=== PATIENT | male | born 1950 | race African-American/Black ===

== ENCOUNTER 2016-07-19 05:24 | Inpatient (IN) ==
--- NOTE | 2016-07-19 05:34 | Emergency Department Note ---
Arrival <Himanshu Brady - Last Filed: 07/19/16 05:31> - Arrival Limitations: Altered Mental Status Source: EMS - History of Present Illness Severity: severe <AdelaMerlin - Last Filed: 07/19/16 07:48> - Arrival Chief Complaint: GI Bleed/Rectal Stated Complaint: pneumonia Time Seen by Provider: 07/19/16 05:30 - History of Present Illness HPI Narrative: Patient presents via EMS after being evaluated at the retirement this morning. The patient was initially able to sit up and speak and had no real complaints and after having one episode of dark brown coffee-ground type emesis he began to have immediate respiratory distress and fell back into the bed. The patient is DNR by the retirement papers signed by his family member named Anika Bruce. On arrival to the emergency department, the patient's abdomen was very tight and distended. He is currently unresponsive and on a CPAP mask. He is unable to respond or give history at this time. (Himanshu Brady) Allergies/Adverse Reactions: Allergies Allergy/AdvReac Type Severity Reaction Status Date / Time No Known Allergies Allergy Unverified 12/05/15 19:12 Home Medications: Home Medications Medication Instructions Recorded Confirmed Type Atorvastatin [Lipitor] 40 mg PO BEDTIME 10/12/15 04/03/16 History Doxazosin Mesylate [Cardura] 8 mg PO PC SUPPER 10/12/15 04/03/16 History Insulin Detemir [Levemir] 36 unit SUBCUT 1700 10/12/15 04/03/16 History Sitagliptin Phosphate [Januvia] 50 mg PO DAILY 10/12/15 04/03/16 History Ferrous Sulfate Tab [Feosol 325 mg PO TID tablet 10/21/15 04/03/16 Rx Original Tab] Metoprolol Succinate Xl [Toprol Xl] 12.5 mg PO BID tablet 10/21/15 04/03/16 Rx Allopurinol 100 mg PO DAILY 12/01/15 04/03/16 History Benztropine Tab [Cogentin Tab] 1 mg PO BID 12/01/15 04/03/16 History Cholecalciferol (Vitamin D3) 2,000 unit PO DAILY 12/01/15 04/03/16 History [Vitamin D3] Cilostazol 25 mg PO BID 12/01/15 04/03/16 History Gabapentin Cap/Tab [Neurontin 300 mg PO TID 12/01/15 04/03/16 History Cap/Tab] Hydrocodone/Acetaminophen 1 each PO TID 12/01/15 04/03/16 History [Hydrocodon-Acetaminophen 5-325] Multivitamin [Multivitamins] 1 each PO DAILY 12/01/15 04/03/16 History Trazodone HCl 50 mg PO BEDTIME 12/01/15 04/03/16 History clonazePAM [Clonazepam] 0.5 mg PO BEDTIME 12/01/15 04/03/16 History hydroCHLOROthiazide 25 mg PO DAILY 12/01/15 04/03/16 History [Hydrochlorothiazide] Acetaminophen Tab [Tylenol Tab] 650 mg PO Q8H PRN 04/03/16 04/03/16 History Aspirin EC Tab 81 mg PO DAILY 04/03/16 04/03/16 History Polyethylene Glycol 3350 17 gm PO DAILY 04/03/16 04/03/16 History Ziprasidone HCl [Geodon] 80 mg PO BID 04/03/16 04/03/16 History Review of System - Review of System 12 point system: reviewed and no additional remarkable complaints except as stated <Himanshu Brady - Last Filed: 07/19/16 05:31> Medical,Surgical,& Family Hx - Medical History Cardio: History of: Hypertension, Cardiovascular Problems Neurology: History of: Neurological Problems (Schizophrenia) Endocrine: History of: Diabetes Mellitus (IDDM), Diabetes Mellitus (NIDDM), Dyslipidemia Musculoskeletal: History of: Musculoskeletal Problems (Muscle atrophy, Bed ridden) Hematology: History of: Anemia - Family History Family History: Reports;: Family Diabetes - Social History Smoking Status: Unknown if ever smoked <Himanshu Brady - Last Filed: 07/19/16 05:31> Exam <Himanshu Brady - Last Filed: 07/19/16 05:31> <Merlin Chapman - Last Filed: 07/19/16 07:48> Physical Examination: General: Patient is well-developed and well-nourished with moderate respiratory distress noted. Patient is unable to follow any commands and is breathing approximately 25-30 times a minute. HEENT: The extraocular muscles are intact. Oropharynx is moist. There is no erythema or exudate. The tympanic membranes are shiny bilaterally. Neck: There is no adenopathy. Full range of motion is noted without pain. The trachea is midline. No JVD is present. Lungs: There is normal excursion of the chest with the lungs sounding clear bilaterally. No subcostal retractions are present. There is no point tenderness present. Heart: The heart has a regular rate and rhythm with no gallops or murmurs. Abdomen: The abdomen is distended with no real tenderness elicited on exam. Bowel sounds are normal. Back: The back demonstrates a normal appearance with no evidence of trauma. Genitourinary: Not examined. Extremities: The extremities demonstrate no clubbing, cyanosis, or edema. The visualized range of motion is normal. They appear atraumatic. Neuro: Cranial nerves II through XII are checked and intact. There is no focal motor or sensory deficit seen in the extremities. Skin: Skin is warm and dry with no evidence of rash. (Himanshu Brady) Vital Signs: Vital Signs Temperature 99.1 F 07/19/16 05:29 Pulse Rate 107 H 07/19/16 06:22 Respiratory Rate 28 H 07/19/16 06:22 Blood Pressure 115/62 07/19/16 06:22 O2 Sat by Pulse Oximetry 83 L 07/19/16 06:22 Course <Himanshu Brady - Last Filed: 07/19/16 05:31> - Consultations Time: 06:10 <Merlin Chapman - Last Filed: 07/19/16 07:48> Course Narrative: Care assumed from Dr. Brady at 6 AM. Patient is a DNR. He was placed on BiPAP he arrived in the emergency department. O2 sats remained in the lower 80s. At about 8 AM the family change their mind regarding DNR status. They would like everything done. Patient was intubated and placed on mechanical ventilation. Vigorous suctioning was performed. (Merlin Chapman) - Consultations Consultation #1: Discussed with hospitalist. Patient will be admitted to their service. I was unable to get the hospitalist answer me. I wrote orders for this patient. Nursing staff will contact the hospitalist upon patient's arrival to the [facility]. ( Merlin Chapman) Procedures <Himanshu Brady - Last Filed: 07/19/16 05:31> - Intubation Time out performed: Yes sedative: Etomidate Mg Given: 20 paralytic: Vecuronium Mg Given: 10 Laryngoscope: fiber optic video scope ET Tube Size: 8 ET Tube Uncuffed: No Tube Secured Depth (cm): 23 Tube Secured Location: lips Tube Placement Confirmation: visualized tube passing through cords, equal breath sounds bilaterally, no breath sounds over epigastrium, confirmation detector color change Patient Tolerated Procedure: well Intubation Complications: none <Merlin Chapman - Last Filed: 07/19/16 07:48> - Intubation Additional Comments: Coffee-ground emesis was noted in the posterior oropharynx at the time of intubation. (Merlin Chapman) Results <Himanshu Brady - Last Filed: 07/19/16 05:31> - Labs CBC & BMP: 07/19/16 05:38 07/19/16 05:38 Lab Results: I have reviewed the patients labs - EKG EKG results: interpreted by ERMD - Diagnostic Findings Procedure: Chest x-ray: image reviewed by me (Increased pulmonary markings on the right greater than left. Old median sternotomy. Chest x-ray #2: Endotracheal tube in position above the jasmina. NG tube in position the stomach.) <Merlin Chapman - Last Filed: 07/19/16 07:48> - Impressions EKG: Normal sinus rhythm with ectopic premature complexes. Early repolarization , possible lateral ischemia. (Merlin Chapman) Critical Care Time <Himanshu Brady Last Filed: 07/19/16 05:31> Critical Care Time: Yes Total Critical Care Time: 60 <Merlin Chapman - Last Filed: 07/19/16 07:48> Attestation: Intubation, IV fluids, IV antibiotics, Protonix were all given to the patient in the emergency department. (Merlin Chapman) Disposition <Himanshu Brady - Last Filed: 07/19/16 05:31> Case discussed with: patient's family Time of Disposition: 06:09 <Merlin Chapman - Last Filed: 07/19/16 07:48> Clinical Impression: Upper GI bleed, Aspiration into airway, Acute respiratory failure, Coronary artery disease, Diabetes mellitus, Metabolic encephalopathy, Anemia Disposition: Still a Patient Condition: Critical
[2016-07-19] MEDS ORDERED: SODIUM CHLORIDE 0.9% 1,000 ML IV STA (05:35)
[2016-07-19] MEDS ORDERED: PANTOPRAZOLE 40 MG VIAL IV STA (05:35)
--- NOTE | 2016-07-19 05:39 | EKG Report ---
Stationary ECG Study [facility] Test Date: 07/19/2016 5:35:09 AM Pat Name: HIMANSHU BURGESS Department: Room: Gender: M [employer]: IJ : 1950 Requested by: Himanshu Brady Order Number: [id number] Ilana MD: MELBA WINTER Intervals [place] Rate: 112 P: -78 MS: 93 QRS: 51 QRSD: 81 T: 108 QT: 329 QTc: 395 Interpretive Statements SINUS TACHYCARDIA POOR QUALITY BASELINE Electronically Signed On 07-20-16 17:59:11 CDT by MELBA WINTER [email or web address]
[2016-07-19 06:01] LABS: Basophils % 0.1 % (0.0-0.8); Eosinophils % 0.3 % (0.00-10.9); Hemoglobin 9.6 GM/DL (14.0-18.0); Immature Granulocytes % 0.2 %; Immature Granulocytes Absolute 0.02 #; Lymphocytes # 1.6 10*3/uL (1.4-4.0); Lymphocytes % 15.8 % (21.2-54.2); Mean Corpuscular Hemoglobin 24 PG (27-34); Mean Corpuscular Volume 81.2 FL (87-102); Mean Platelet Volume 11.3 FL (9.6-12.0); Monocytes # 0.1 10*3/uL (0.11-0.8); Monocytes % 1.4 % (1.7-12.7); Neutrophils # 8.1 10*3/uL (1.4-7.4); Neutrophils % 82.2 % (38.7-73.9); Platelet Count 261 T/CUMM (130-400); Red Blood Count 3.94 MC/CUMM (3.8-5.5); Red Cell Distribution Width 16.4 % (9.3-17.3); White Blood Count 9.9 T/CUMM (4-12)
[2016-07-19] MEDS ORDERED: PANTOPRAZOLE 40 MG VIAL IV ONE (06:03)
[2016-07-19] MEDS ORDERED: PIPERACILLIN/TAZOBACTAM 3,375 MG in SODIUM CHLORIDE 0.9% 100 ML IV STA (06:11)
[2016-07-19] MEDS ORDERED: PIPERACILLIN/TAZOBACTAM 3,375 MG VIAL IV ONE (06:12)
[2016-07-19] MEDS ORDERED: LORazepam 2 MG/1 ML VIAL IV STA (06:25)
[2016-07-19] MEDS ORDERED: LORazepam 2 MG/1 ML VIAL ONE (06:26)
[2016-07-19 06:28] LABS: Ammonia 109 UMOL/L (11-32)
[2016-07-19 06:30] LABS: Acanthocytes Few; Band Neutrophils 10 % (0-10); Hypochromasia 1+; Lymphocytes 20 % (20-55); Metamyelocytes 1 %; Microcytosis 1+; Ovalocytes Slight; Segmented Neutrophils 67 % (50-85); Total Cells Counted 100
[2016-07-19 06:31] LABS: Platelet Estimate Normal
[2016-07-19 06:40] LABS: Alanine Aminotransferase 24 U/L (16-61); Albumin 3.5 G/DL (3.4-5.0); Alkaline Phosphatase 72 U/L (45-117); Aspartate Amino Transferase 19 U/L (0-37); Bilirubin,Total < 0.39 MG/DL (0.2-1.0); Blood Urea Nitrogen 34 MG/DL (7-18); Glucose 280 MG/DL (74-106); Sodium 136 MMOL/L (136-145); Total Protein 6.9 G/DL (6.4-8.3); Troponin I Only < 0.015 NG/ML (0.00-0.045)
--- NOTE | 2016-07-19 06:52 | Hospitalist History & Physical ---
Assessment and Plan - Time spent with patient Time spent with patient: Greater than 30 minutes (1) Acute respiratory failure Status: Acute Assessment and plan: Most likely instigated by aspiration into the airway. This was acutely onset at the care home. Patient does have a chest x-ray showing right middle lobe infiltrates most likely secondary to aspiration of gastric contents. Will be treated with antibiotics including Zosyn 4.5 g q. 8; add vancomycin 1 g now and 750 every 12 hours consult pharmacy for vancomycin pharmacokinetics and dosing. I am informed the patient is DNR and is going to be admitted to the medical floor. Discussed the case with the emergency room physician home advised to go and talk to the family because they had to evaluate the patient in the emergency room and the family had not been talked to yet. Current Visit: Yes (2) Aspiration into airway Status: Acute Assessment and plan: Treated with antibiotics and mentioned above. Pulmonary titer may be necessary. Current Visit: Yes (3) Metabolic encephalopathy Status: Acute Assessment and plan: Provide lactulose 20 g p.o. every 8 hours. Repeat ammonia in the morning. Current Visit: Yes (4) Upper GI bleed Status: Acute Current Visit: Yes (5) Anemia Status: Acute Assessment and plan: Repeat H&H every 12 hours. Type and hold 2 units of packed red cells. Current Visit: No Qualifiers: Anemia type: other cause (6) Upper GI bleed Status: Acute Assessment and plan: Most likely this could be associated with portosystemic hypertension patient has an ammonia 102. Variceal bleed is likely will consult gastroenterology for further evaluation and management. Avoid putting an NG tube in this gentleman. Current Visit: Yes History of Present Illness Chief complaint: GI bleed altered mental status History of present illness: Mr. Marques is a 66 year old male was brought from the care home where he resides following coffee-ground emesis and subsequent acute respiratory distress. The thought that the patient may have aspirated at the time. Reportedly this gentleman is DNR. In the emergency room he is on CPAP. Shunt was evaluated in the emergency room by Dr. Chapman and slated for admission upstairs. Was called to see this patient at 0629 morning for this admission. There is a family member in the emergency room who states that has been taking care of of her brother but she just recently came from [place]; did not know much about past medical history of the patient. On arrival to the emergency department, the patient's abdomen was very tight and distended. He is currently unresponsive and on a CPAP mask. He is unable to respond or give history at this time Home Medications Medication Instructions Recorded Confirmed Type Atorvastatin [Lipitor] 40 mg PO BEDTIME 10/12/15 04/03/16 History Doxazosin Mesylate [Cardura] 8 mg PO PC SUPPER 10/12/15 04/03/16 History Insulin Detemir [Levemir] 36 unit SUBCUT 1700 10/12/15 04/03/16 History Sitagliptin Phosphate [Januvia] 50 mg PO DAILY 10/12/15 04/03/16 History Ferrous Sulfate Tab [Feosol 325 mg PO TID tablet 10/21/15 04/03/16 Rx Original Tab] Metoprolol Succinate Xl [Toprol Xl] 12.5 mg PO BID tablet 10/21/15 04/03/16 Rx Allopurinol 100 mg PO DAILY 12/01/15 04/03/16 History Benztropine Tab [Cogentin Tab] 1 mg PO BID 12/01/15 04/03/16 History Cholecalciferol (Vitamin D3) 2,000 unit PO DAILY 12/01/15 04/03/16 History [Vitamin D3] Cilostazol 25 mg PO BID 12/01/15 04/03/16 History Gabapentin Cap/Tab [Neurontin 300 mg PO TID 12/01/15 04/03/16 History Cap/Tab] Hydrocodone/Acetaminophen 1 each PO TID 12/01/15 04/03/16 History [Hydrocodon-Acetaminophen 5-325] Multivitamin [Multivitamins] 1 each PO DAILY 12/01/15 04/03/16 History Trazodone HCl 50 mg PO BEDTIME 12/01/15 04/03/16 History clonazePAM [Clonazepam] 0.5 mg PO BEDTIME 12/01/15 04/03/16 History hydroCHLOROthiazide 25 mg PO DAILY 12/01/15 04/03/16 History [Hydrochlorothiazide] Acetaminophen Tab [Tylenol Tab] 650 mg PO Q8H PRN 04/03/16 04/03/16 History Aspirin EC Tab 81 mg PO DAILY 04/03/16 04/03/16 History Polyethylene Glycol 3350 17 gm PO DAILY 04/03/16 04/03/16 History Ziprasidone HCl [Geodon] 80 mg PO BID 04/03/16 04/03/16 History Allergies Allergy/AdvReac Type Severity Reaction Status Date / Time No Known Allergies Allergy Unverified 12/05/15 19:12 Medical,Surgical,& Family Hx - Medical History Cardio: History of: Hypertension, Cardiovascular Problems Neurology: History of: Neurological Problems (Schizophrenia) Endocrine: History of: Diabetes Mellitus (IDDM), Diabetes Mellitus (NIDDM), Dyslipidemia Musculoskeletal: History of: Musculoskeletal Problems (Muscle atrophy, Bed ridden) Hematology: History of: Anemia - Family History Family History: Reports;: Family Diabetes - Social History Smoking Status: Unknown if ever smoked Frequency of Alcohol Use: None Type of Drug Use: None ROS unobtainable: due to endotracheal tube Review of systems: Chief complaint and past medical history and history of presenting illness. Exam - Constitutional Vitals: Period Temp Pulse Resp BP Sys/Loo Pulse Ox Last 24 Hr 99.1 F 107-114 28-32 113-115/62-79 81-83 General appearance: other (Patient is incommunicado with his CPAP on) - Head Head exam: Present: normocephalic, atraumatic - Eye Eye exam: Present: other (Unable to assess) - ENT ENT exam: Present: other (Unable to assess) - Neck Neck exam: Present: other (Supple neck) - Respiratory Respiratory exam: Present: other (Bilateral crackles more so on the right side moderate tachypnea) - Cardiovascular Cardiovascular exam: Present: tachycardia, other (With ectopic beats) - GI/Abdominal GI/Abdominal exam: Present: other (Bowel sounds present but very infrequent count abdomen) - Extremities Exam Extremities exam: Present: other (Unable to move extremities but could be generalized weakness) - Psychiatric Psychiatric exam: Present: other (Unable to assess) - Skin Skin exam: Present: normal color, warm, dry Results - Labs CBC & BMP: 07/19/16 05:38 07/19/16 05:38 Lab Results: I have reviewed the past 24 hour labs (Noted creatinine 1.6 white count of 9.9 hemoglobin 9.6 normal platelet AST 19 ALT 24 alk phos 72 ammonia 109 anion gap of 15)
[2016-07-19] MEDS ORDERED: VANCOMYCIN INJ 1,000 MG in SODIUM CHLORIDE 0.9% 250 ML IV STA (07:05)
[2016-07-19 07:23] LABS: PT Patient Result 10.6 SECS; Partial Thromboplastin Time 27.4 SECS (0-40)
--- NOTE | 2016-07-19 07:36 | Event Note ---
Patient seen and examined. Respiratory status less than favorable. SPO2 83%. Family at beside; discussed in great detail patient current status. [employer] spoke with sister regarding the need to possibly intubate if patient status continues to decline. Code status discussed; family states" We want every thing done". DNR revoked at bedside; code status is now FULL CODE.
[2016-07-19] MEDS ORDERED: ETOMIDATE 20 MG/10 ML VIAL IV ONE ×2 (07:37→07:56)
[2016-07-19] MEDS ORDERED: MIDAZOLAM 2 MG/2 ML VIAL IV STA (07:37)
[2016-07-19] MEDS ORDERED: ALBUTEROL 2.5 MG/3 ML NEB RESP TX STA (07:49)
--- NOTE | 2016-07-19 07:49 | XRay Report ---
Portable chest. Indication: Shortness of breath. Comparison: December 01, 2015. The heart is normal in size. There is left ventricular hypertrophy. There is uncoiling of the thoracic aorta which often indicates chronic hypertension. Post median sternotomy. The pulmonary vasculature is normal. There are rather extensive bilateral alveolar infiltrates, involving most of the mid and central aspects of the right lung, and the right infrahilar lung. No pneumothorax. No pleural effusion. Impression: Bilateral infiltrates. Without cardiomegaly and venous congestion, this most likely represents pneumonia. Noncardiogenic pulmonary edema is also a consideration. PROCEDURE INTERPRETED AT [facility] DEPARTMENT OF RADIOLOGY Final Report Signed by: Dr. Bruna Qureshi
[2016-07-19] MEDS ORDERED: VECURONIUM 10 MG VIAL IV ONE (07:56)
--- NOTE | 2016-07-19 07:56 | XRay Report ---
Portable chest. Indication: Endotracheal tube placement. Comparison: Previous study from 5:30 this morning. The heart is is normal in size. Post median sternotomy. Since the previous study, there has been placement of an endotracheal tube, its distal tip is 18 mm above the jasmina. The distal tip of the nasogastric tube projects over the area of the antrum of the stomach. Extensive bilateral infiltrates are again demonstrated, similar in distribution to the previous exam, involving most of the central and mid portions of the right lung and the left infrahilar region. No pneumothorax or pleural effusion. Gaseous distention of bowel. Impression: Status post intubation. The distal tip of the endotracheal tube is 17 mm above the jasmina. Extensive infiltrates bilaterally remain stable. PROCEDURE INTERPRETED AT [facility] DEPARTMENT OF RADIOLOGY Final Report Signed by: Dr. Bruna Qureshi
[2016-07-19] MEDS ORDERED: MIDAZOLAM 2 MG/2 ML VIAL ONE (08:00)
[2016-07-19] MEDS ORDERED: VECURONIUM 10 MG VIAL IV STA (08:05)
[2016-07-19] MEDS ORDERED: DEXTROSE 50% 25 GM/50 ML VIAL IV PRN (08:48)
[2016-07-19] MEDS ORDERED: GLUCAGON 1 MG VIAL IM PRN (08:48)
[2016-07-19] MEDS: SODIUM CHLORIDE 0.9% 1,000 ML IV SCH ×2 (08:56→16:19)
[2016-07-19] MEDS ORDERED: SODIUM CHLORIDE 0.9% 1,000 ML IV ONE ×2 (09:32→12:42)
[2016-07-19] MEDS: ALBUTEROL/IPRATROPIUM 3 ML NEB RESP TX SCH ×4 (10:57→23:46)
--- NOTE | 2016-07-19 11:24 | Pulmonology Consult Note ---
Addendum entered and electronically signed by Naun Gil CFNP 07/19/16 11: 55: Family history (update): Positive also for sarcoidosis Original Note: <Naun Gil - Last Filed: 07/19/16 11:10> History of Present Illness Chief complaint: Vent management. Pneumonia. History of present illness: Naun Gil, ANP-BC, GNP-BC, acting as scribe for Dr. Roman Francis Mr. Marques is a 66-year-old -[place] male who we have been asked to see in pulmonary consultation for evaluation and treatment. The request for consultation was made by Dr. Stewart. This is a residential patient. He was brought to the emergency room early this morning by EMS. Apparently, while at the residential the patient had one episode of dark brown coffee-ground type emesis and began to have respiratory distress. It suspected that the patient aspirated. It was reported and the patient was initially able to sit up and speak with no real complaints prior to this. Previously the patient had been DNR, however but this was revoked at bedside in the emergency room. He was subsequently intubated. Chest x-ray shows bilateral infiltrates compatible with probable pneumonia. We have been asked to see the patient for ventilator management and treatment of his pulmonary issues. No family is present at the time of this evaluation. Therefore, his review of systems and history is taken from his EMR and nursing staff. Prior to the above-noted episode, there was no reported increased shortness of breath. No reports of cardiac angina or palpitations. No reported reflux or solid dysphagia. No bleeding from any site. No change in bowel or bladder habits. All other systems were reviewed and were negative. Allergies: None known Home medications: See list Past medical history: Sterling's hospitalization 10/13/2015 through 10/21/2015 under the care of the hospitalist. He was seen in pulmonary consultation with Dr. Quintero during that admission. He was treated for suspected right lower lobe infiltrate, probable iron deficiency anemia, chronic renal failure, diabetes mellitus, and schizophrenia. Patient also has hypertension. Social history: The patient resides in a residential. It is unknown if the patient was ever a smoker. Family history: Positive for diabetes. Chest x-ray. Done 07/19/2016. My interpretation. Bilateral infiltrates compatible with probable pneumonia. Most likely secondary to aspiration, but consider bacterial superinfection. Laboratory: White count is 9900 with 82.2% segs, 15.8% lymphs, 1.4% monos; H&H 9.6/32.0 with decreased indices and top normal red blood cell distribution with ; platelet count 261,000; INR 1.0; creatinine 1.60, BUN 34, sodium 136, potassium 4.0, magnesium 2.0; liver function tests within normal limits; ammonia is markedly elevated at 109; troponin is negative; calcium 9.0, albumin 3.5, total protein 6.9 Home Medications Medication Instructions Recorded Confirmed Type Atorvastatin [Lipitor] 40 mg PO BEDTIME 10/12/15 07/19/16 History Doxazosin Mesylate [Cardura] 8 mg PO PC SUPPER 10/12/15 07/19/16 History Insulin Detemir [Levemir] 36 unit SUBCUT 1700 10/12/15 07/19/16 History Sitagliptin Phosphate [Januvia] 100 mg PO DAILY 10/12/15 07/19/16 History Ferrous Sulfate Tab [Feosol 325 mg PO TID tablet 10/21/15 07/19/16 Rx Original Tab] Metoprolol Succinate Xl [Toprol Xl] 12.5 mg PO BID tablet 10/21/15 07/19/16 Rx Allopurinol 100 mg PO DAILY 12/01/15 07/19/16 History Benztropine Tab [Cogentin Tab] 1 mg PO BID 12/01/15 07/19/16 History Cholecalciferol (Vitamin D3) 2,000 unit PO DAILY 12/01/15 07/19/16 History [Vitamin D3] Cilostazol 25 mg PO BID 12/01/15 07/19/16 History Gabapentin Cap/Tab [Neurontin 300 mg PO TID 12/01/15 07/19/16 History Cap/Tab] Hydrocodone/Acetaminophen 1 each PO BID 12/01/15 07/19/16 History [Hydrocodon-Acetaminophen 5-325] Multivitamin [Multivitamins] 1 each PO DAILY 12/01/15 07/19/16 History Trazodone HCl 50 mg PO BEDTIME 12/01/15 07/19/16 History clonazePAM [Clonazepam] 0.5 mg PO BEDTIME 12/01/15 07/19/16 History hydroCHLOROthiazide 25 mg PO DAILY 12/01/15 07/19/16 History [Hydrochlorothiazide] Acetaminophen Tab [Tylenol Tab] 650 mg PO Q8H PRN 04/03/16 07/19/16 History Aspirin EC Tab 81 mg PO DAILY 04/03/16 07/19/16 History Polyethylene Glycol 3350 17 gm PO DAILY 04/03/16 07/19/16 History Ziprasidone HCl [Geodon] 80 mg PO BID 04/03/16 07/19/16 History Docusate Sodium [Colace] 100 mg PO BID 07/19/16 07/19/16 History Glimepiride [Amaryl] 1 mg PO DAILY 07/19/16 07/19/16 History Lactulose 10 gm PO DAILY 07/19/16 07/19/16 History Megestrol Acetate [Megace] 400 mg PO DAILY 07/19/16 07/19/16 History Allergies Allergy/AdvReac Type Severity Reaction Status Date / Time No Known Allergies Allergy Verified 07/19/16 13:56 Exam (Pulmonay) H&P - Constitutional Vitals: Period Temp Pulse Resp BP Sys/Loo Pulse Ox Last 24 Hr 97.2 F 74-107 12-28 63-115/47-86 83-100 Exam: Psych: Unable to be obtained. The patient is sedated and on the ventilator. HEENT: [Pupils, irises, sclera, conjunctiva, and eyelids appear normal. The face is symmetrical without rash or masses. Lips and tongue are WNL; ETT in place Neck: [Symmetrical. Thyroid was not palpated.] Lymphatics: [No submandibular, cervical, or supraclavicular adenopathy] Chest: Symmetrical with significant coarseness and large airway congestion, expiratory wheeze CV: Lateral PMI; no gallop Arterial: Carotids are decreased. Upper extremity pulses are palpable. Lower extremity pulses are nonpalpable, but I see no evidence of ischemia Venous: [Exam of the neck, upper, and lower extremities is normal] Abd: [No appreciable organomegaly, masses, tenderness, or bruit; Bowel sounds are minimally hypoactive 4; The aorta was not palpated] /Rectal: [Deferred] Extremities: [No clubbing, cyanosis, or obvious DVT; mild pedal and pretibial edema bilaterally; ALYSSIA hose are in use] Skin: [No cancerous or infectious lesions of the exposed, examined skin; the perineal area was not examined] M/S: [Age appropriate loss of the normal curvature of the cervical, thoracic, and lumbar spine] Neurological: Presently the patient does not wake up. It is noted, that he was given a good bit of sedatives in the emergency room prior to intubation. The remainder of the exam was noncontributory. Impression: #1: Acute bilateral infiltrates most likely compatible with aspiration pneumonia but consider a bacterial superinfection #2: Hematemesis #3: Chronic renal failure #4: Diabetes mellitus #5: Schizophrenia #6: Anemia; probably secondary to iron deficiency #7: Hyperammonemia #8: Acute respiratory distress secondary to #1 and/or #2 requiring intubation mechanical ventilation #9: See past history Plan: #1: Agree with present antibiotics. We will start the physical therapy protocol and ventilator management weaning protocol. #2: Check Doppler venograms to rule out deep venous thrombophlebitis. Note, the patient has been on Megace while at the residential. #3: Will schedule fiberoptic bronchoscopy for later on today #4: Check sputum for Gram stain, culture and sensitivity #5: Check cold agglutinins and Legionella #6: Check BNP, TSH, and free T4 #7: See orders We appreciate this consult and will follow along with you. Medical,Surgical,& Family Hx - Medical History Cardio: History of: Hypertension, Cardiovascular Problems Psychological: History of: Schizophrenia Neurology: History of: Neurological Problems (Schizophrenia) HEENT: History of: Glaucoma Endocrine: History of: Diabetes Mellitus (IDDM), Diabetes Mellitus (NIDDM), Dyslipidemia Rheumatology: History of;: Gout, Rheumatoid Arthritis Respiratory: History of: Pneumonia (x 2 last time was in 2016) Genitourinary: History of: Prostate Problems, Problems (elevated kidney levels seeing a renal md per family, dr. jackson.) Gastrointestinal: History of: Gastrointestinal Bleed, Hemorrhoids Musculoskeletal: History of: Musculoskeletal Problems (Muscle atrophy, Bed ridden) Hematology: History of: Anemia - Surgical History Cardiac Surgeries: Sugical HX of: Cardiac Catheterization, Cardiac Surgery (CABG ) HEENT Surgeries: Surgical HX of: Eye Surgery (cataracts) - Family History Family History: Reports;: Family Diabetes - Social History Smoking Status: Unknown if ever smoked Frequency of Alcohol Use: None Type of Drug Use: None Results - Labs CBC & BMP: 07/19/16 05:38 07/19/16 05:38 <Roman Francis - Last Filed: 07/19/16 18:02> History of Present Illness History of present illness: Mr. Marques is a 66 year old male Exam (Pulmonay) H&P - Constitutional Vitals: Period Temp Pulse Resp BP Sys/Loo Pulse Ox Last 24 Hr 96 F-98 F 66-107 12-28 63-145/47-97 83-100 Exam: The patient's Doppler venograms were negative. Abdominal ultrasound was essentially negative. CT of the head showed no acute changes. Historically and by chest x-ray evidence this patient has aspirated. I have considered fiberoptic bronchoscopy but I am going to put this off until tomorrow since the patient is not stable. He is on pressor agents. He has acute liver failure among his many other problems. He has lactic acidosis. I have added Solu- Medrol 40 mg IV push every 8 hours to cover for adult respiratory distress syndrome. PO2 is only 99.8 on 100% oxygen. Patient is covered with antibiotics. The available laboratory test and x-ray tests to been reviewed. Ventilator changes have been made. He is scheduled for fiberoptic bronchoscopy 8 AM on 07/20/2006 Results - Labs CBC & BMP: 07/19/16 11:35 07/19/16 05:38
[2016-07-19] MEDS: INSULIN LISPRO 100 UNIT/ML SUBCUT SCH ×3 (11:27→23:59)
[2016-07-19] MEDS: VANCOMYCIN INJ 1,250 MG in SODIUM CHLORIDE 0.9% 250 ML IV SCH ×2 (11:51→23:08)
[2016-07-19 11:53] LABS: ABG Base Excess -6.3 MMOL/L (-2.5-2.5); ABG HCO3 19.2 MMOL/L (20-26); ABG PH 7.253 (7.35-7.45); ABG PO2 99.8 MM HG (80-95); ABG TCO2 19.6 MMOL/L (23-27); Allen Test Positive; Pt O2 Delivery Device Ventilator
[2016-07-19 11:55] LABS: Hematocrit 29.4 VOL% (42.0-52.0); Hemoglobin 8.5 GM/DL (14.0-18.0)
[2016-07-19 12:37] LABS: Free T4 (Free Thyroxine) 1.36 NG/DL (0.76-1.46); Thyroid Stimulating Hormone 2.68 uIU/ml (0.358-3.74)
[2016-07-19] MEDS ORDERED: SODIUM CHLORIDE 0.9% 250 ML IV PRN (12:40)
[2016-07-19] MEDS ORDERED: NOREPINEPHRINE 4 MG/4 ML VIAL IV ONE (12:46)
[2016-07-19] MEDS ORDERED: NOREPINEPHRINE 8 MG in SODIUM CHLORIDE 0.9% 242 ML IV SCH (13:00)
--- NOTE | 2016-07-19 13:03 | Gastrointestinal Consult Note ---
Assessment and Plan (1) Coffee ground emesis Status: Acute Assessment and plan: If the family agrees we can certainly proceed with upper endoscopy tomorrow in order to find a source for the patient's bleeding. The patient had been made a DNR previously and the family may wish not to be this aggressive. Complications include but are not limited to: Bleeding, infection, perforation, cardiac and pulmonary compromise. We can perform this procedure at the bedside tomorrow morning. In the meantime we will will certainly cover him with Protonix 40 mg IV twice daily and observe his hematocrit exchange underwriting consultant time. Upper GI bleeding may be feeding into his current iron deficiency anemia picture. His only anti-inflammatory agent is aspirin as an outpatient. Current Visit: Yes (2) Guaiac positive stools Status: Acute Assessment and plan: As noted above. I suspect this patient has erosive gastritis or duodenitis or esophagitis. AVMs and/or gastric cancer esophageal cancer not completely ruled out. Upper endoscopy is advised if the family is willing to proceed. Current Visit: Yes (3) Constipation Status: Acute Assessment and plan: Patient manually disimpacted during physical examination today. He may require some laxatives down the road if we begin to feed again. Current Visit: Yes (4) Iron deficiency anemia Status: Acute Assessment and plan: Potential lower GI sources may also be feeding into an iron deficiency anemia. Because of the vomiting of coffee grounds we are not going to pursue colonoscopy during this admission. Currently the patient appears to have had a stroke. Will order ammonia level to see if this is simply a metabolic encephalopathy. Current Visit: Yes History of Present Illness Chief complaint: Coffee-ground emesis and TONYA 29%, guaiac positive History of present illness: Mr. Marques is a 66 year old male who developed an episode of coffee-ground emesis with associated localized distress this morning. The patient is a schizophrenic who is currently residing in a residential where he was made a DNR and was able to talk up until his most recent admission this morning in the emergency room. The patient went into respiratory distress and has been subsequently intubated he is having difficulty maintaining his pressures. His hematocrit has dropped over the last 4 hours from 32.0 to 29.4%. He is basically obtunded with his eyes in the midpoint position and fixed, he answers no questions. On physical examination he is intubated, has no teeth but had brown discoloration to his tongue likely related to the recent coffee-ground emesis abdomen is soft and distended without a fluid wave his rectal exam shows copious amounts of brown/green guaiac positive stools. If the patient remains stable I plan to scope the patient tomorrow, if his family is in agreement. He does have a history of iron deficiency anemia. Home Medications Medication Instructions Recorded Confirmed Type Atorvastatin [Lipitor] 40 mg PO BEDTIME 10/12/15 04/03/16 History Doxazosin Mesylate [Cardura] 8 mg PO PC SUPPER 10/12/15 04/03/16 History Insulin Detemir [Levemir] 36 unit SUBCUT 1700 10/12/15 04/03/16 History Sitagliptin Phosphate [Januvia] 50 mg PO DAILY 10/12/15 04/03/16 History Ferrous Sulfate Tab [Feosol 325 mg PO TID tablet 10/21/15 04/03/16 Rx Original Tab] Metoprolol Succinate Xl [Toprol Xl] 12.5 mg PO BID tablet 10/21/15 04/03/16 Rx Allopurinol 100 mg PO DAILY 12/01/15 04/03/16 History Benztropine Tab [Cogentin Tab] 1 mg PO BID 12/01/15 04/03/16 History Cholecalciferol (Vitamin D3) 2,000 unit PO DAILY 12/01/15 04/03/16 History [Vitamin D3] Cilostazol 25 mg PO BID 12/01/15 04/03/16 History Gabapentin Cap/Tab [Neurontin 300 mg PO TID 12/01/15 04/03/16 History Cap/Tab] Hydrocodone/Acetaminophen 1 each PO TID 12/01/15 04/03/16 History [Hydrocodon-Acetaminophen 5-325] Multivitamin [Multivitamins] 1 each PO DAILY 12/01/15 04/03/16 History Trazodone HCl 50 mg PO BEDTIME 12/01/15 04/03/16 History clonazePAM [Clonazepam] 0.5 mg PO BEDTIME 12/01/15 04/03/16 History hydroCHLOROthiazide 25 mg PO DAILY 12/01/15 04/03/16 History [Hydrochlorothiazide] Acetaminophen Tab [Tylenol Tab] 650 mg PO Q8H PRN 04/03/16 04/03/16 History Aspirin EC Tab 81 mg PO DAILY 04/03/16 04/03/16 History Polyethylene Glycol 3350 17 gm PO DAILY 04/03/16 04/03/16 History Ziprasidone HCl [Geodon] 80 mg PO BID 04/03/16 04/03/16 History Allergies Allergy/AdvReac Type Severity Reaction Status Date / Time No Known Allergies Allergy Unverified 12/05/15 19:12 Medical,Surgical,& Family Hx - Medical History Cardio: History of: Hypertension, Cardiovascular Problems Psychological: History of: Schizophrenia Neurology: History of: Neurological Problems (Schizophrenia) HEENT: History of: Glaucoma Endocrine: History of: Diabetes Mellitus (IDDM), Diabetes Mellitus (NIDDM), Dyslipidemia Rheumatology: History of;: Gout, Rheumatoid Arthritis Respiratory: History of: Pneumonia (x 2 last time was in 2016) Genitourinary: History of: Prostate Problems, Problems (elevated kidney levels seeing a renal md per family, dr. jackson.) Gastrointestinal: History of: Gastrointestinal Bleed, Hemorrhoids Musculoskeletal: History of: Musculoskeletal Problems (Muscle atrophy, Bed ridden) Hematology: History of: Anemia - Surgical History Cardiac Surgeries: Sugical HX of: Cardiac Catheterization, Cardiac Surgery (CABG ) HEENT Surgeries: Surgical HX of: Eye Surgery (cataracts) - Family History Family History: Reports;: Family Diabetes - Social History Smoking Status: Unknown if ever smoked Frequency of Alcohol Use: None Type of Drug Use: None ROS unobtainable: due to endotracheal tube Exam - Constitutional Vitals: Period Temp Pulse Resp BP Sys/Loo Pulse Ox Last 24 Hr 97.2 F-98 F 74-107 12-28 63-115/47-86 83-100 General appearance: no acute distress Exam: Constitutional: Well-developed, well-nourished, obese black male obtunded, and in no acute distress Head and face: Head: Normocephalic atraumatic Eyes: Conjunctiva without injection, no gross scleral icterus, fixed and midline, bilateral cataracts noted Ears: Unable to assess Nose: External appearance is normal, nares patent Mouth: Oral mucous membranes moist without erythema the patient appears to be edentulous Neck: Normal appearance, no masses or tenderness, trachea midline Thyroid: Gland midline and appropriate size for age Respiratory: Intubated, however lungs clear to auscultation without wheezes, rhonchi or rales Cardiovascular: Regular rate and rhythm, normal S1, S2, the exam is without rubs, murmurs or gallops. Gastrointestinal: Nontender to palpation, normal active bowel sounds, tone normal without rigidity or guarding, no masses present, no hepatomegaly, no spleen tip felt. Rectal examination revealed copious amounts of cloudy consistency stool that was brown green but grossly guaiac positive. Moderate size hemorrhoids encountered. Lymphatic: Neck without adenopathy, axilla without lymphadenopathy present Musculoskeletal: Right and left lower extremities with trace evidence of edema Skin and subcutaneous tissue: No rashes or ulcerations noted, normal skin turgor, digits and nails without clubbing/cyanosis/deformities. Neurologic: Patient is having no movement of his extremities, he withdraws to extremely deep sternal rub but otherwise is nonresponsive. He is intubated. Pupils are midline and fixed Psychiatric: Unable to assess, the patient said to be schizophrenic Results - Labs CBC & BMP: 07/19/16 11:35 07/19/16 05:38
--- NOTE | 2016-07-19 13:18 | Ultrasound Report ---
Abdomen ultrasound complete. Indication: Hematemesis. The liver is normal in size. There is fatty infiltration of the liver. No focal liver lesions are seen. There is no intrahepatic biliary ductal dilatation. The common duct measures 5 mm. No gallstones are seen. There is no gallbladder wall thickening or fluid around the gallbladder. The pancreas is completely obscured by bowel gas. No ascites is seen. The abdominal aorta is obscured by bowel gas. Only a small portion of the IVC is visible. It is patent. There is a small cyst at the superior pole of the right kidney, measuring under a centimeter. No hydronephrosis. No solid masses. The spleen is not enlarged. Impression: Limited study. Small right renal cyst. Fatty infiltration of the liver. The Ultrasound images were captured and stored. PROCEDURE INTERPRETED AT [facility] DEPARTMENT OF RADIOLOGY Final Report Signed by: Dr. Bruna Qureshi
[2016-07-19 14:24] LABS: Apearance,Urine CLOUDY (Clear); Bacteria,Urine Many /HPF (Few); Bilirubin,Urine Negative (Negative); Blood, Urine Small mg/dL (Negative); Glucose,Urine (UA) Negative (Negative); Ketones,Urine 5 mg/dL (Negative); Mucus,Urine Few /LPF (Occasional); Nitrite,Urine Negative (Negative); Protein,Urine 100 MG/DL; RBC,Urine 14 /HPF (0-4); Squamous Epithelial Cell,Urine Occasional /HPF (0-10); Urine Color Amber (Yellow); Urine Specific Gravity 1.023 (1.001-1.035); Urine Urobilinogen < 2.0 EU/DL (0.2-1.0); WBC,Urine 28 /HPF (0-6)
--- NOTE | 2016-07-19 14:50 | CT Report ---
CT of the head without contrast. Indication: Unresponsive patient. Comparison: December 01, 2015. There is calcific plaque present within the intracranial internal carotid arteries. There is bilateral basal ganglial calcification. The ventricles and sulci are normally prominent for the patient's age. There is no mass effect, midline shift, or area of hemorrhage. There is a partial empty sella. No cortical infarcts are visible at this time. The calvarium is intact. The mastoid air cells are clear. The patient is intubated. Impression: No acute intracranial process or interval change is seen. The CT exam was performed using one or more of the following dose reduction techniques: Automated exposure control, adjustment of the mA and/or kV according to patient size, or use of iterative reconstruction technique. PROCEDURE INTERPRETED AT [facility] DEPARTMENT OF RADIOLOGY Final Report Signed by: Dr. Bruna Qureshi
--- NOTE | 2016-07-19 14:52 | Ultrasound Report ---
Bilateral lower extremity venous Doppler with landrum scale, Spectral Doppler and color-flow analysis performed and interpreted. Indication: Leg swelling Scanning over both common femoral veins, superficial femoral veins, greater saphenous veins and popliteal veins demonstrates normal compressibility, color flow, and augmentation. Impression: No evidence of DVT seen in either lower extremity. PROCEDURE INTERPRETED AT [facility] DEPARTMENT OF RADIOLOGY Final Report Signed by: Dr. Bruna Qureshi
[2016-07-19] MEDS: MIDAZOLAM 100 MG in SODIUM CHLORIDE 0.9% 80 ML IV SCH ×2 (15:14→18:29)
[2016-07-19] MEDS: LACTULOSE 20 GM/30 ML UDCUP PO SCH ×2 (15:31→21:36)
[2016-07-19] MEDS: PIPERACILLIN/TAZOBACTAM 3,375 MG in SODIUM CHLORIDE 0.9% 100 ML IV SCH ×2 (15:31→21:36)
--- NOTE | 2016-07-19 15:33 | Cardiology Consult Note ---
Jp Yang Vanessa RN, am scribing for, and in the presence of, Iman Hernández DO 15 :25. Assessment and Plan - Time spent with patient Time spent with patient: Greater than 30 minutes (Sinus tachycardiaDue to assessment, planning, documentation, medication review.) (1) Preoperative cardiovascular examination Status: Acute Assessment and plan: Proceed with proposed endoscopy without further evaluation. Given the fact he is requiring transfusions there is little additionally that can be added from a cardiovascular standpoint to decrease morbidity and mortality. Supportive therapies. Given the vast unknown date I will get an echocardiogram his cardiac exam appears normal to me. Current Visit: Yes (2) Upper GI bleed Status: Acute Assessment and plan: Gastroenterology has been consulted and they have evaluated. Dr. Zabala plans for EGD tomorrow. Current Visit: Yes (3) Acute respiratory failure Status: Acute Assessment and plan: He is intubated and sedated at this time. Pulmonary has been consulted for management of mechanical ventilation, and we will defer primary management to Dr. Francis. Current Visit: Yes (4) Diabetes mellitus Status: Chronic Assessment and plan: Continue current plan of care. Defer primary management to hospital medicine. Current Visit: Yes (5) Guaiac positive stools Status: Acute Current Visit: Yes (6) Anemia Status: Acute Assessment and plan: This seems to be a recurrent issue. He is currently admitted with acute upper GI bleed, and he is receiving 2 units PRBCs this afternoon. Monitor H&H and hemodynamics closely. Current Visit: Yes Qualifiers: Anemia type: other cause (7) Tardive dyskinesia Status: Chronic Current Visit: No (8) Hypertension Status: Chronic Assessment and plan: At this time, he is actually hypotensive, has required IV fluid bolus, and is currently on IV vasopressor (Levophed 10 g per min). Wean these as tolerated as blood pressure allows, and continue to monitor blood pressure closely to reintroduce antihypertensives. Current Visit: Yes (9) History of coronary artery bypass graft Status: Chronic Assessment and plan: This is a presumptive diagnosis with her sternotomy. 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 There is no family available at this time, and HPI is gathered from review of old records and current chart. Mr. Marques is a 66 year old black male who is a alf resident at [facility] in [place]. It is unclear if he has been evaluated by bargain table clerk before. [facility] clinic records do not indicate that he has never been evaluated by [facility] bargain table clerk. Old records indicate that he has a past medical history of paranoid schizophrenia, tardive dyskinesia, hypertension, diabetes, anemia, and chronic renal failure. There is a mention in previous records the patient has a history of CAD. He has previously been hospitalized here in September 2015 and admitted to the hospitalist service at that time, he was treated for altered mental status, pneumonia, sepsis, and iron deficiency anemia. He has been evaluated at [facility] ER on 4 occasions since that hospitalization- October 2015, November 2015 times, and March 2016. On these occasions, he was seen and discharged after experiencing apparent altered mental status and irregular heartbeat, but upon evaluation in ED, patient was alert and oriented and had a regular rhythm. UTI was present, and he received treatment for this and was discharged back to alf. Earlier this morning, he was brought to the emergency room per EMS per apparently, he experienced an episode of dark brown, coffee-ground emesis and had some respiratory distress afterward. It was felt that patient most likely aspirated. Initially, patient was overall alert and responsive, but after arrival to the ED respiratory status worsened with oxygen saturations near 80%, and after discussion with hospital medicine, family revoked patient's previous DNR status and change CODE STATUS to full code. He was intubated in the emergency room without difficulty, and he was admitted to the CCU for further evaluation and treatment per hospital medicine. Gastroenterology has evaluated patient, and they recommend EGD. Cardiology has been consulted for preoperative cardiovascular exam prior to receiving anesthesia for endoscopy to rule out acute EKG changes. EKG obtained earlier this morning reveals sinus tachycardia with early repolarization and occasional PVC with nonspecific ST-T changes. At time of exam, review of telemetry shows sinus rhythm with pulse rate in the 70s without ectopy or sustained dysrhythmia. Hypotension experienced earlier with systolic blood pressure ranging 62-90 mmHg. Patient has received a total IV fluid bolus of 3 L, and he is currently on IV Levophed infusion at 10 mcg/min. Current BP 115/85. He will receive 2 units packed red blood cells this afternoon. Patient is noted to have old sternal incision scar, and there is a mention of previous CABG. Home medication list also indicative of previous coronary history. Labs reviewed. Initial H&H this morning upon arrival was 9.6 and 32.0 with recheck a few hours later revealed H&H of 8.5 and 29.4. Potassium is 4.0, and magnesium is 2.0. Creatinine is 1.6 with a GFR of 63. Ammonia level noted to be high at 109, repeat 81. Troponin level is negative. TSH 2.68. Current Medications Albuterol/Ipratropium (Duoneb) 3 ml RESP TX RT Q4H MONTRELL Last Admin: 07/19/16 14:41 Dose: 3 ml Dextrose/Water (D50) 25 gm IV PRN PRN PRN Reason: Hypoglycemia with IV access Glucagon () 1 mg IM PRN PRN PRN Reason: Hypoglycemia w/o IV access Piperacillin Sod/Tazobactam (Sod 3,375 mg/ Sodium Chloride) 100 mls @ 25 mls/ hr IV Q8H MONTRELL Midazolam HCl 100 mg/ Sodium (Chloride) 100 mls @ 1.81 mls/hr IV TITRATE MONTRELL; 0.02 MG/KG/HR PRN Reason: Protocol Sodium Chloride (Ns) 1,000 mls @ 125 mls/hr IV .Q8H MONTRELL Last Admin: 07/19/16 08:56 Dose: 125 mls/hr Piperacillin Sod/Tazobactam (Sod 3,375 mg/ Sodium Chloride) 100 mls @ 25 mls/ hr IV Q8H MONTRELL Vancomycin HCl 1,250 mg/ (Sodium Chloride) 250 mls @ 250 mls/hr IV Q12H MONTRELL Last Admin: 07/19/16 11:51 Dose: 250 mls/hr Sodium Chloride (Ns) 250 mls @ 20 mls/hr IV .[id number] PRN PRN Reason: Blood Transfusion Stop: 07/20/16 12:40 Norepinephrine Bitartrate 8 mg (/ Sodium Chloride) 250 mls @ 3.75 mls/hr IV TITRATE MONTRELL; 2 MCG/MIN PRN Reason: Protocol Last Admin: 07/19/16 13:18 Dose: 10 mcg/min, 18.75 mls/hr Insulin Human Lispro (Humalog) 0 unit SUBCUT Q6HR MONTRELL PRN Reason: Protocol Last Admin: 07/19/16 11:27 Dose: Not Given Lactulose (Chronulac) 20 gm PO TID MONTRELL Pantoprazole Sodium (Protonix Inj) 40 mg IV BID COUNTS INCLUDE 234 BEDS AT THE [facility] I saw and examined Mr. Marques in room 120. He has blood hanging NG tube in place he is on the ventilator has no response to verbal or tactile stimuli. His heart rate is 72 bpm in sinus rhythm his blood pressure is 120/68. I reviewed his chart and examined the patient. There is a 66-year-old gentleman admitted with what appears to be a GI bleed with evidence of blood in his nasogastric aspirate he is scheduled for EGD tomorrow we been asked for risk stratification for his upper endoscopy. The patient has a sternotomy scar the details of which are unknown. His cardiac exam demonstrates no obvious murmur to suggest valvular heart disease. The patient has no previous cardiac evaluation, cardiac imaging or invasive or diagnostic in our electronic health record or PACS system. Given the patient's GI bleed and the low risk endoscopic evaluation of his upper GI tract no further cardiovascular workup is warranted or indicated prior to proposed procedure. Given the vast quantity of unknown date I recommend that we get a transthoracic echo. His cardiac silhouette is normal on chest x-ray he appears to have an infiltrate in the right lung. This does not appear to be heart failure. I suspect this may represent aspiration pneumonitis. CC: Nubia Stewart MD - Home Medications and Allergies Home Medications: Home Medications Medication Instructions Recorded Confirmed Type Atorvastatin [Lipitor] 40 mg PO BEDTIME 10/12/15 07/19/16 History Doxazosin Mesylate [Cardura] 8 mg PO PC SUPPER 10/12/15 07/19/16 History Insulin Detemir [Levemir] 36 unit SUBCUT 1700 10/12/15 07/19/16 History Sitagliptin Phosphate [Januvia] 100 mg PO DAILY 10/12/15 07/19/16 History Ferrous Sulfate Tab [Feosol 325 mg PO TID tablet 10/21/15 07/19/16 Rx Original Tab] Metoprolol Succinate Xl [Toprol Xl] 12.5 mg PO BID tablet 10/21/15 07/19/16 Rx Allopurinol 100 mg PO DAILY 12/01/15 07/19/16 History Benztropine Tab [Cogentin Tab] 1 mg PO BID 12/01/15 07/19/16 History Cholecalciferol (Vitamin D3) 2,000 unit PO DAILY 12/01/15 07/19/16 History [Vitamin D3] Cilostazol 25 mg PO BID 12/01/15 07/19/16 History Gabapentin Cap/Tab [Neurontin 300 mg PO TID 12/01/15 07/19/16 History Cap/Tab] Hydrocodone/Acetaminophen 1 each PO BID 12/01/15 07/19/16 History [Hydrocodon-Acetaminophen 5-325] Multivitamin [Multivitamins] 1 each PO DAILY 12/01/15 07/19/16 History Trazodone HCl 50 mg PO BEDTIME 12/01/15 07/19/16 History clonazePAM [Clonazepam] 0.5 mg PO BEDTIME 12/01/15 07/19/16 History hydroCHLOROthiazide 25 mg PO DAILY 12/01/15 07/19/16 History [Hydrochlorothiazide] Acetaminophen Tab [Tylenol Tab] 650 mg PO Q8H PRN 04/03/16 07/19/16 History Aspirin EC Tab 81 mg PO DAILY 04/03/16 07/19/16 History Polyethylene Glycol 3350 17 gm PO DAILY 04/03/16 07/19/16 History Ziprasidone HCl [Geodon] 80 mg PO BID 04/03/16 07/19/16 History Docusate Sodium [Colace] 100 mg PO BID 07/19/16 07/19/16 History Glimepiride [Amaryl] 1 mg PO DAILY 07/19/16 07/19/16 History Lactulose 10 gm PO DAILY 07/19/16 07/19/16 History Megestrol Acetate [Megace] 400 mg PO DAILY 07/19/16 07/19/16 History Allergies/Adverse Reactions: Allergies Allergy/AdvReac Type Severity Reaction Status Date / Time No Known Allergies Allergy Verified 07/19/16 13:56 ROS unobtainable: due to endotracheal tube Medical,Surgical,& Family Hx - Medical History Cardio: History of: CAD (There is mention of this in the old chart, but it is unclear), Hypertension, Cardiovascular Problems No history of: Cardiac Dysrhythmia Psychological: History of: Schizophrenia Neurology: History of: Neurological Problems (Schizophrenia) HEENT: History of: Glaucoma Endocrine: History of: Diabetes Mellitus (IDDM), Diabetes Mellitus (NIDDM), Dyslipidemia Rheumatology: History of;: Gout, Rheumatoid Arthritis Respiratory: History of: Pneumonia (x 2 last time was in 2016) Genitourinary: History of: Prostate Problems, Problems (elevated kidney levels seeing a renal md per family, dr. jackson.) Gastrointestinal: History of: Gastrointestinal Bleed, Hemorrhoids Musculoskeletal: History of: Musculoskeletal Problems (Muscle atrophy, Bed ridden) Hematology: History of: Anemia - Surgical History Cardiac Surgeries: Sugical HX of: Cardiac Catheterization, Cardiac Surgery (CABG ) HEENT Surgeries: Surgical HX of: Eye Surgery (cataracts) - Family History Family History: Reports;: Family Diabetes - Social History Smoking Status: Unknown if ever smoked Frequency of Alcohol Use: None Type of Drug Use: None Physical Examination Vital Signs Temp Pulse Resp BP Pulse Ox 99.1 F 114 H 32 H 113/79 81 L 07/19/16 05:29 07/19/16 05:29 07/19/16 05:29 07/19/16 05:29 07/19/16 05:29 General: Present: Other (On the ventilator as per HPI is dry mucous membranes ET tube is in place an NG tube in place he appears that he will) Neck: Present: Supple Neck Cardiac: Present: S1/S2, Other (I hear no significant murmur). Absent: S3, S4 Lungs: Present: No Rhonchi (This may be upper airway or tracheal noise) Abdomen: Present: Distended (Abdomen is resonant with markedly diminished bowel sounds) Extremities: Absent: Edema Result/EKG - Labs CBC & BMP: 07/19/16 11:35 07/19/16 05:38 Lab Results: I have reviewed the past 24 hour labs Labs: Laboratory Results - last 24 hr 07/19/16 07/19/16 07/19/16 11:12 11:35 11:41 Hgb 8.5 L Hct 29.4 L ABG pH ABG pCO2 ABG pO2 ABG HCO3 ABG Total CO2 ABG O2 Saturation ABG Base Excess FiO2 POC Glucose 179 H Lactic Acid Ammonia B-Natriuretic Peptide Free T4 1.36 TSH 3rd Generation 2.680 Blood Type Antibody Screen Crossmatch Blood Bank Comment 07/19/16 07/19/16 07/19/16 11:41 11:41 11:56 Hgb Hct ABG pH 7.253 L ABG pCO2 47.0 ABG pO2 99.8 H ABG HCO3 19.2 L ABG Total CO2 19.6 L ABG O2 Saturation 97.0 ABG Base Excess -6.3 L FiO2 100.00 POC Glucose Lactic Acid Ammonia 81 H B-Natriuretic Peptide 84 Free T4 TSH 3rd Generation Blood Type Antibody Screen Crossmatch Blood Bank Comment 07/19/16 07/19/16 12:40 13:12 Hgb Hct ABG pH ABG pCO2 ABG pO2 ABG HCO3 ABG Total CO2 ABG O2 Saturation ABG Base Excess FiO2 POC Glucose Lactic Acid 5.1 H Ammonia B-Natriuretic Peptide Free T4 TSH 3rd Generation Blood Type Cancelled Antibody Screen Cancelled Crossmatch See Detail Blood Bank Comment Cancelled - Diagnostic Findings Procedure: Chest x-ray: image reviewed by me, report reviewed by me (07/19/16: Status post median sternotomy. Normal heart size. Similar distribution of extensive bilateral infiltrates when compared to previous exam. 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
--- NOTE | 2016-07-19 15:40 | Event Note ---
I saw Mr Marques when he arrived in CCU and spoke with his family. At this point he has been bolused a total of 3 liters. He is on levophed and will receive blood transfusion also this afternoon. We have not seen any further bleeding other than what happened leading to aspiration at the [facility] this morning. NG aspirate is not bloody. He has started to move and respond to some stimuli. He received etomidate and ativan and versed in ER and has not required any sedation since arrival in CCU. His pupils have just become responsive, and he moved some earlier during rectal exam. He has had a head CT that shows no acute changes. EGD planned for tomorrow. His family say someone earlier in ER told them he had liver disease but they doubt that as it has never come up before. he is in the NH because of his paranoid schizophrenia. He is well controlled on his psych meds, and goes to see his doctors in [place]. ammonia coming down with lactulose. lactic acid increased a bit. BP stable on 10mcg of levophed. Bronch planned for today also. Initially when parks placed he had 1L urine out immediately, now at a rate of 40 /hr. repeat lactic acid and BMP tonight. I think he has sepsis from aspiration pneumonia, respiratory failure from aspiration, and UGIB as primary problems.
[2016-07-19] MEDS ORDERED: PIPERACILLIN/TAZOBACTAM 3,375 MG in SODIUM CHLORIDE 0.9% 100 ML IV SCH (16:00)
[2016-07-19] MEDS: methylPREDNISolone SOD SUC 40 MG/1 ML VIAL IV SCH (18:14)
[2016-07-19] MEDS: PANTOPRAZOLE 40 MG VIAL IV SCH (21:36)
[2016-07-19 21:41] LABS: Hematocrit 34.3 VOL% (42.0-52.0); Hemoglobin 10.7 GM/DL (14.0-18.0)
[2016-07-19 21:58] LABS: Calcium 8.1 MG/DL (8.5-10.1); Magnesium 1.7 MG/DL (1.8-2.4); Osmolality,Calculated 294.3 MOS/KG (273-304)
[2016-07-20] MEDS: SODIUM CHLORIDE 0.9% 1,000 ML IV SCH ×3 (02:33→16:17)
[2016-07-20] MEDS: ALBUTEROL/IPRATROPIUM 3 ML NEB RESP TX SCH ×6 (03:15→23:59)
[2016-07-20 03:26] LABS: ABG Base Excess -6.7 MMOL/L (-2.5-2.5); ABG HCO3 18.9 MMOL/L (20-26); ABG PCO2 32.8 MM HG (35-48); ABG PH 7.349 (7.35-7.45); ABG TCO2 16.5 MMOL/L (23-27); Allen Test Positive; Pt O2 Delivery Device Ventilator
[2016-07-20] MEDS: methylPREDNISolone SOD SUC 40 MG/1 ML VIAL IV SCH ×3 (03:59→17:01)
[2016-07-20] MEDS: PIPERACILLIN/TAZOBACTAM 3,375 MG in SODIUM CHLORIDE 0.9% 100 ML IV SCH ×3 (06:16→22:41)
[2016-07-20] MEDS: INSULIN LISPRO 100 UNIT/ML SUBCUT SCH ×3 (06:16→17:37)
--- NOTE | 2016-07-20 07:00 | ECHO Report ---
Himanshu Marques Exam Date: 07/19/2016 16:00 Referring Physician: Technologist: Sarah Smallwood RDCS Age: 66 Ht (in): 74 Wt (lb): 203 Gender: M Exam Location: [facility] Echo Indications: UGI bleed, Acute respiratory failure, unspecified whether with hypoxia or hypercapnia, IDDM, Anemia, Essential (primary) hypertension, Schizophrenia, Pre Op, EKG changes, CAD with previous CABG BP: 141 / 79 HR: 72 Rhythm: Sinus Technical Quality: good IMPRESSIONS Left ventricular ejection fraction is estimated at 55 %. Grade I diastolic dysfunction. Moderate to severe left ventricular hypertrophy. Tricuspid regurgitation velocities suggest a RVSP of 29 mmHg plus the right atrial pressure. Calcification of the aortic valve and mitral annulus with no significant valve dysfunction. MEASUREMENTS (Male / Female) Normal Values 2D ECHO LV Diastolic Diameter PLAX 3.8 cm 4.2 - 5.9 / 3.9 - 5.3 cm LV Systolic Diameter PLAX 2.2 cm LV Fractional Shortening PLAX 40.7 % IVS Diastolic Thickness 1.5 cm 0.6 - 1.0 / 0.6 - 0.9 cm LVPW Diastolic Thickness 1.5 cm 0.6 - 1.0 / 0.6 - 0.9 cm RV Internal Dim ED PLAX 2.9 cm Aortic Root Diameter 3.5 cm LA Systolic Diameter LX 3.4 cm 3.0 - 4.0 / 2.7 - 3.8 cm DOPPLER TR Peak Velocity 267.0 cm/s TR Peak Gradient 28.5 mmHg FINDINGS Left Ventricle Normal left ventricular cavity size. Moderate to severe left ventricular hypertrophy. Left ventricular ejection fraction is estimated at 55 %. Grade I diastolic dysfunction. No appreciable RWMA. Right Ventricle The right ventricle is normal in size and function. Right Atrium The right atrium is normal in size. Left Atrium The left atrium is normal in size. Mitral Valve Morphologically normal mitral valve. Trace mitral valve regurgitation. Aortic Valve Moderate aortic valve calcification. No aortic valve regurgitation. Tricuspid Valve Morphologically normal tricuspid valve. Mild tricuspid valve regurgitation. Tricuspid regurgitation velocities suggest a RVSP of 29 mmHg plus the right atrial pressure. Pulmonic Valve Morphologically normal pulmonic valve without significant stenosis. There is no pulmonic regurgitation. Pericardium Normal pericardium without effusion. Aorta Normal ascending aorta dimension. Iman Hernández (Electronically Signed) Final Date: 20 Jul 2016 06:58
[2016-07-20] MEDS: PANTOPRAZOLE 40 MG VIAL IV SCH ×2 (08:13→20:49)
[2016-07-20] MEDS: MIDAZOLAM 100 MG in SODIUM CHLORIDE 0.9% 80 ML IV SCH (08:13)
[2016-07-20] MEDS ORDERED: MAGNESIUM SULF RIDER 2 GM in PREMIX 1 EACH IV ONE (08:41)
--- NOTE | 2016-07-20 08:49 | Event Note ---
In hospital therapeutic and diagnostic fiberoptic. Bronchoalveolar lavage of the right upper lung, right middle lung, right lower lung, left upper lung, left lower lung, specimen sent for Gram stain, bacterial cultures, fungal stains and culture. This is a 66-year-old black male with aspiration acute respiratory failure required intubation mechanical ventilation he has a number of other problems including hypotension which is required pressor agents. He is on a ventilator. His cough is ineffective. His chest x-ray shows infiltrates and atelectasis suggestive of bilateral aspiration. For these reasons she is evaluated with fiberoptic bronchoscopy. The endotracheal tube is in good position. Distal trachea was normal. The jasmina was sharp. The right mainstem bronchus contained a lot of secretions. These were localized in the right upper lung and right middle lung. These areas were lavaged until clear. In the right lower lung there was a tremendous amount of retained secretions and what appeared to be gastric contents. There was mild erythema without stenosis in the subsegments of the right lower lung. Right lower lung was lavaged until clear. These specimens were sent for the studies mentioned above The right left mainstem bronchus contained a moderate amount of secretions. These extended into the left upper lung where there was erosive friable bronchitis. Left upper lung was lavaged until clear. Similar secretions and gastric contents were found in the left lower lung. There was mild erosive nonstenotic bronchitis in all left lower lung subsegments. These areas were lavaged until clear. Specimens were sent for the studies noted above The patient tolerated procedure well there were no complications. Impression. 1. Mechanical ventilation. 2. Retained secretions and retained gastric aspirate 3. Ineffective cough 4. Abnormal chest x-ray with bilateral infiltrates most prominent in the right upper lung and right lower lung and right lower lung atelectasis. 5. See above Plan. 1. Check bronchoscopy specimens 2. Follow-up chest
--- NOTE | 2016-07-20 08:50 | Pulmonology Progress Note ---
Pulmonary - PN: Subj Interval history: This is a 66-year-old black male whom I saw in pulmonary consultation on 2016. This is [facility] who was brought to the emergency room by EMS. He had had an episode of emesis of dark coffee ground material and this was followed by respiratory distress and it was thought that he had aspirated. He said that initially he can sit up and speak. Patient previously been at the DNR but this is both at bedside in the emergency room by his family. He required intubation. His chest x-ray showed evidence of aspiration with bilateral infiltrates. Patient was hypotensive and he required pressor agents. See his admit note for additional details. My impressions were #1: Acute bilateral infiltrates most likely compatible with aspiration pneumonia but consider a bacterial superinfection #2: Hematemesis #3: Chronic renal failure #4: Diabetes mellitus #5: Schizophrenia #6: Anemia; probably secondary to iron deficiency #7: Hyperammonemia #8: Acute respiratory distress secondary to #1 and/or #2 requiring intubation mechanical ventilation #9: See past history 07/20/2016. Fiberoptic bronchoscopy was delayed until this morning because of the patient's other problems and what appeared to be instability. His chest x- ray shows dense infiltrates in the right upper and right lower lung. Infiltrates in the left lung are good bit better on bronchoscopy he had a tremendous amount of retained gastric contents. This was removed with lavage and all 5 lobes of the lung. Specimens were sent for bacterial and fungal studies. He had some mild erosive bronchitis but there was no's stenosis related to this. He tolerated procedure well. The patient is on a weaning protocol and physical therapy protocol. This morning's ABGs on mechanical ventilation with an FiO2 of 100% showed a pH 7.349, PCO2 of 33, PO2 of 313 a bicarb of 19. FiO2 has been decreased. His admit creatinine was 1.9 with a BUN of 40 and his electrolytes were normal. White count was 9900. It appears in no labs been ordered for today so I have taken the liberty of ordering additional lab. Patient's on vancomycin, Zosyn, Solu-Medrol 40 IV push every 8 hours sliding scale insulin. Proton pump inhibitors. Deep venous thrombophlebitis prevention protocol. Labs been reviewed. Medicines been reviewed. Doppler venograms. 07/19/2016. No evidence of deep venous thrombophlebitis. CT of the head. 07/19/2016. No acute changes Ultrasound of the abdomen. 07/19/2016. Small infiltrate. Limited study. No other abnormalities noted Echocardiogram. 07/19/2016. Ejection fraction about 5055% with +1 diastolic dysfunction and right ventricular pressures of 29 mm of Physical exam. Vital signs. See below Neurologic. Patient can be slightly aroused and he appears to have none purposeful movements of all 4 extremities. . Face is symmetrical. Lips and tongue appear to be normal Neck. Symmetrical. No meningismus Lymphatics. No submandibular cervical supraclavicular or epitrochlear adenopathy. Chest. Coarse large airway congestion bilaterally. Bibasal inspiratory squeaks. Heart. No gallop Abdomen. Rare bowel sounds Lower extremities. No obvious deep venous thrombophlebitis The remainder the physical exam is noncontributory. Plan: #1: 07/19/2016. Agree with present antibiotics. We will start the physical therapy protocol and ventilator management weaning protocol. #2: 07/19/2016. Check Doppler venograms to rule out deep venous thrombophlebitis. Note, the patient has been on Megace [facility]. Venograms were negative for deep venous thrombophlebitis #3: 07/20/2016. Fiberoptic bronchoscopy. See report #4: Check sputum for Gram stain, culture and sensitivity. Check bronchoscopy specimens. #5: Check cold agglutinins and Legionella #6: Check BNP, TSH, and free T4 #7: See orders 8. See my note 07/20/2016. Daily chest x-ray ABGs and lab. I have ordered labs for today. Exam (Progress Note) - Constitutional Vitals: Period Temp Pulse Resp BP Sys/Loo Pulse Ox Last 24 Hr 95.9 F-98.1 F 65-87 12-20 70-171/48-97 95-100 Results - Labs CBC & BMP: 07/19/16 21:34 07/19/16 21:34
[2016-07-20 09:34] LABS: Basophils % 0.1 % (0.0-0.8); Eosinophils % 0.1 % (0.00-10.9); Hematocrit 30.1 VOL% (42.0-52.0); Hematocrit 30.4 VOL% (42.0-52.0); Hemoglobin 9.6 GM/DL (14.0-18.0); Hemoglobin 9.7 GM/DL (14.0-18.0); Immature Granulocytes % 2.2 %; Immature Granulocytes Absolute 0.35 #; Lymphocytes # 0.5 10*3/uL (1.4-4.0); Lymphocytes % 3.3 % (21.2-54.2); Mean Corpuscular HGB Conc 31.6 GM/DL (32-36); Mean Corpuscular Hemoglobin 26 PG (27-34); Mean Corpuscular Volume 82.8 FL (87-102); Mean Platelet Volume 12.7 FL (9.6-12.0); Monocytes # 0.5 10*3/uL (0.11-0.8); Monocytes % 3.5 % (1.7-12.7); Neutrophils # 14.2 10*3/uL (1.4-7.4); Neutrophils % 90.8 % (38.7-73.9); Platelet Count 170 T/CUMM (130-400); Red Blood Count 3.67 MC/CUMM (3.8-5.5); Red Cell Distribution Width 16.5 % (9.3-17.3); White Blood Count 15.7 T/CUMM (4-12)
[2016-07-20] MEDS: VANCOMYCIN INJ 1,250 MG in SODIUM CHLORIDE 0.9% 250 ML IV SCH ×2 (09:35→22:41)
[2016-07-20 09:43] LABS: INR 1.2; PT Patient Result 12.9 SECS; Partial Thromboplastin Time 37.5 SECS (0-40)
--- NOTE | 2016-07-20 09:45 | Cardiology Progress Note ---
Felipe Yang April RN, am scribing for, and in the presence of, Iman Hernández DO 09 :45. Assessment and Plan (1) Preoperative cardiovascular examination Status: Acute Assessment and plan: Proceed with proposed endoscopy. The patient tolerated bronchoscopy well. Current Visit: Yes (2) Acute respiratory failure Status: Acute Current Visit: Yes (3) Anemia Status: Acute Assessment and plan: Acute blood loss anemia for EGD today Current Visit: Yes Qualifiers: Anemia type: other cause (4) Upper GI bleed Status: Acute Current Visit: Yes (5) Diabetes mellitus Status: Chronic Current Visit: Yes Qualifiers: Diabetes mellitus type: type 2 (6) History of coronary artery bypass graft Status: Chronic Current Visit: Yes (7) Tardive dyskinesia Status: Chronic Current Visit: No Cardiology - PN: Subj Interval history: Mr. Marques is seen in the intensive care unit this morning. He is intubated on mechanical ventilation at 100% oxygen. O2 sat 100%. He is currently sedated on Versed, no response to verbal or tactile stimuli. Telemetry monitoring currently shows sinus rhythm with heart rates in the 70s. Blood pressure currently 140/77. Levophed was discontinued last night. Echocardiogram done yesterday showed ejection fraction of 55%, moderate to severe left ventricular hypertrophy, and tricuspid regurgitation. He received 2 units of packed red blood cells yesterday, posttransfusion H&H 10.7 and 34.3. I discussed with Dr. Plascencia at the bedside. I saw and examined Mr. Marques. He is status post bronchoscopy. His ejection fraction yesterday showed LVH and EF is described above he also had some calcification of his aortic and mitral valve. I saw no regional wall motion abnormality. I have nothing further to add at this time and will sign off. If the patient gets extubated and has any cardiopulmonary complaints or other issues arise please do not hesitate to call. Exam (Progress Note) - Constitutional Vitals: Period Temp Pulse Resp BP Sys/Loo Pulse Ox Last 24 Hr 96 F-98.1 F 65-87 12-20 70-171/48-97 95-100 General appearance: over weight, other (Intubated, appears ill) - Head Head exam: Absent: abrasion, hematoma - Eye Eye exam: Absent: periorbital swelling, laceration to eyelids - Respiratory Respiratory exam: Present: clear to auscultation bilaterally, other (Intubated on mechanical ventilation). Absent: accessory muscle use - Cardiovascular Cardiovascular exam: Present: regular rate and rhythm - GI/Abdominal GI/Abdominal exam: Present: normal bowel sounds, soft. Absent: distended - Extremities Exam Extremities exam: Absent: edema - Neurological Exam Neurological exam: Absent: alert (Sedated on Versed) - Psychiatric Psychiatric exam: Present: other (Unable to assess due to being sedated on Versed) - Skin Skin exam: Present: warm, dry Result/EKG - Labs CBC & BMP: 07/20/16 09:18 07/19/16 21:34 Lab Results: I have reviewed the past 24 hour labs Labs: Laboratory Results - last 24 hr 07/19/16 07/19/16 07/19/16 11:12 11:35 11:41 Hgb 8.5 L Hct 29.4 L ABG pH ABG pCO2 ABG pO2 ABG HCO3 ABG Total CO2 ABG O2 Saturation ABG Base Excess FiO2 Sodium Potassium Chloride Carbon Dioxide Anion Gap BUN Creatinine GFR Calculation BUN/Creatinine Ratio Glucose POC Glucose 179 H Calculated Osmolality Lactic Acid Calcium Magnesium Ammonia B-Natriuretic Peptide Free T4 1.36 TSH 3rd Generation 2.680 Urine Color Urine Appearance Urine pH Ur Specific [place] Urine Protein Urine Glucose (UA) Urine Ketones Urine Blood Urine Nitrate Urine Bilirubin Urine Urobilinogen Urine Leukocytes Urine RBC Urine WBC Ur Squamous Epith Cells Urine Bacteria Urine Mucus Ur Culture Indicated? Blood Type Antibody Screen Cold Agglutinin Screen Crossmatch Blood Bank Comment 07/19/16 07/19/16 07/19/16 11:41 11:41 11:41 Hgb Hct ABG pH ABG pCO2 ABG pO2 ABG HCO3 ABG Total CO2 ABG O2 Saturation ABG Base Excess FiO2 Sodium Potassium Chloride Carbon Dioxide Anion Gap BUN Creatinine GFR Calculation BUN/Creatinine Ratio Glucose POC Glucose Calculated Osmolality Lactic Acid Calcium Magnesium Ammonia 81 H B-Natriuretic Peptide 84 Free T4 TSH 3rd Generation Urine Color Urine Appearance Urine pH Ur Specific [place] Urine Protein Urine Glucose (UA) Urine Ketones Urine Blood Urine Nitrate Urine Bilirubin Urine Urobilinogen Urine Leukocytes Urine RBC Urine WBC Ur Squamous Epith Cells Urine Bacteria Urine Mucus Ur Culture Indicated? Blood Type Antibody Screen Cold Agglutinin Screen 1:2 Crossmatch Blood Bank Comment 07/19/16 07/19/16 07/19/16 11:56 12:40 13:00 Hgb Hct ABG pH 7.253 L ABG pCO2 47.0 ABG pO2 99.8 H ABG HCO3 19.2 L ABG Total CO2 19.6 L ABG O2 Saturation 97.0 ABG Base Excess -6.3 L FiO2 100.00 Sodium Potassium Chloride Carbon Dioxide Anion Gap BUN Creatinine GFR Calculation BUN/Creatinine Ratio Glucose POC Glucose Calculated Osmolality Lactic Acid Calcium Magnesium Ammonia B-Natriuretic Peptide Free T4 TSH 3rd Generation Urine Color [place] Urine Appearance Cloudy Urine pH 5.0 Ur Specific [place] 1.023 Urine Protein 100 Urine Glucose (UA) Negative Urine Ketones 5 Urine Blood Small Urine Nitrate Negative Urine Bilirubin Negative Urine Urobilinogen < 2.0 H Urine Leukocytes Small H Urine RBC 14 Urine WBC 28 Ur Squamous Epith Cells Occasional Urine Bacteria Many Urine Mucus Few Ur Culture Indicated? Results to follow Blood Type Cancelled Antibody Screen Cancelled Cold Agglutinin Screen Crossmatch See Detail Blood Bank Comment Cancelled 07/19/16 07/19/16 07/19/16 13:12 17:37 21:34 Hgb 10.7 L D Hct 34.3 L ABG pH ABG pCO2 ABG pO2 ABG HCO3 ABG Total CO2 ABG O2 Saturation ABG Base Excess FiO2 Sodium Potassium Chloride Carbon Dioxide Anion Gap BUN Creatinine GFR Calculation BUN/Creatinine Ratio Glucose POC Glucose 167 H Calculated Osmolality Lactic Acid 5.1 H Calcium Magnesium Ammonia B-Natriuretic Peptide Free T4 TSH 3rd Generation Urine Color Urine Appearance Urine pH Ur Specific [place] Urine Protein Urine Glucose (UA) Urine Ketones Urine Blood Urine Nitrate Urine Bilirubin Urine Urobilinogen Urine Leukocytes Urine RBC Urine WBC Ur Squamous Epith Cells Urine Bacteria Urine Mucus Ur Culture Indicated? Blood Type Antibody Screen Cold Agglutinin Screen Crossmatch Blood Bank Comment 07/19/16 07/19/16 07/19/16 21:34 21:34 23:58 Hgb Hct ABG pH ABG pCO2 ABG pO2 ABG HCO3 ABG Total CO2 ABG O2 Saturation ABG Base Excess FiO2 Sodium 141 Potassium 4.0 Chloride 109 H Carbon Dioxide 20 L Anion Gap 16.0 H BUN 40 H Creatinine 1.90 H GFR Calculation 53 BUN/Creatinine Ratio 21.00 H Glucose 166 H POC Glucose 194 H Calculated Osmolality 294.3 Lactic Acid 4.3 H Calcium 8.1 L Magnesium 1.7 L Ammonia B-Natriuretic Peptide Free T4 TSH 3rd Generation Urine Color Urine Appearance Urine pH Ur Specific [place] Urine Protein Urine Glucose (UA) Urine Ketones Urine Blood Urine Nitrate Urine Bilirubin Urine Urobilinogen Urine Leukocytes Urine RBC Urine WBC Ur Squamous Epith Cells Urine Bacteria Urine Mucus Ur Culture Indicated? Blood Type Antibody Screen Cold Agglutinin Screen Crossnytch Blood Bank Comment 07/20/16 07/20/16 03:00 06:10 Hgb Hct ABG pH 7.349 L ABG pCO2 32.8 L ABG pO2 313.0 H ABG HCO3 18.9 L ABG Total CO2 16.5 L ABG O2 Saturation 100.0 ABG Base Excess -6.7 L FiO2 100.00 Sodium Potassium Chloride Carbon Dioxide Anion Gap BUN Creatinine GFR Calculation BUN/Creatinine Ratio Glucose POC Glucose 208 H Calculated Osmolality Lactic Acid Calcium Magnesium Ammonia B-Natriuretic Peptide Free T4 TSH 3rd Generation Urine Color Urine Appearance Urine pH Ur Specific [place] Urine Protein Urine Glucose (UA) Urine Ketones Urine Blood Urine Nitrate Urine Bilirubin Urine Urobilinogen Urine Leukocytes Urine RBC Urine WBC Ur Squamous Epith Cells Urine Bacteria Urine Mucus Ur Culture Indicated? Blood Type Antibody Screen Cold Agglutinin Screen Crossnytch Blood Bank Comment - EKG EKG results: interpreted by me EKG shows: sinus rhythm IBetty Shea, DO, personally performed the services described in this documentation, ascribed by Kelle Wang RN in my presence, and it is both accurate and complete 945 .
--- NOTE | 2016-07-20 09:47 | XRay Report ---
History: Patient on ventilator Date: 07/20/2016 Study: Chest x-ray AP portable Comparison exam: 07/19/2016 The endotracheal and nasogastric tubes remain in place. The cardiomediastinal silhouette is unchanged in this patient status post prior median sternotomy. The pulmonary vasculature is upper normal. There is continued patchy and hazy infiltrate in the right mid to lower lung and left lung base compatible with pneumonia. There is increasing opacity over the right lung base which is thought to be related to a combination of increasing infiltrate and superimposed mild right pleural effusion since the previous study. Osseous structures are unchanged. Impression: Continued bilateral infiltrate, presumably pneumonia. There is increased density over the right lung base which is likely related to a combination of increasing right basilar infiltrate and superimposed layering pleural effusion PROCEDURE INTERPRETED AT [facility] DEPARTMENT OF RADIOLOGY Final Report Signed by: Dr. Marlena Iyer
[2016-07-20] MEDS: LACTULOSE 20 GM/30 ML UDCUP PO SCH ×3 (09:55→20:48)
--- NOTE | 2016-07-20 09:58 | Physician Query Form ---
CLICK EDIT DOCUMENT TO SELECT QUERY ANSWER --> OK --> SIGN Kelsy Faith RN Clinical Field Human Resources Manager W) [phone] (f) [phone] [email or web address] PROVIDERS: Make your selection(s) from the choices in EACH section by typing an "x" and enter comments in the comment section. Please use your independent medical judgment in providing your response. This request does not imply that any particular answer is desired or expected. CLINICAL INDICATORS: (Providers should not edit this section) Based on documentation of "Acute upper GI bleed" "Acute guaiac positive stools" "Acute coffee ground emesis" Transfused 2 units PRBC. Based on the above, could you clarify which of the following conditions you are evaluating, treating, and/or monitoring? ( x) Blood loss anemia ( x) acute ( ) chronic ( ) acute on chronic ( ) Acute blood loss anemia on baseline chronic anemia ( ) Acute blood loss anemia as a complication of a procedure ( ) Iron deficiency anemia not associated with blood loss ( ) Dilutional anemia due to IV fluids ( ) Hemolytic anemia ( ) immune ( ) non-immune - please specify cause: ( ) Anemia due to other condition, please specify: ( ) Clinically unable to determine COMMENTS: Use of terms such as suspected, likely, or probable (associated with a specific diagnosis that is being evaluated, monitored, or treated as if it exists) are acceptable and can be restated in the discharge summary if not ruled out. MTDD
[2016-07-20 10:10] LABS: Albumin 2.4 G/DL (3.4-5.0); Bilirubin,Total 0.4 MG/DL (0.2-1.0); Calcium 8.2 MG/DL (8.5-10.1); Osmolality,Calculated 293.4 MOS/KG (273-304); Potassium 5.4 MMOL/L (3.5-5.1); Total Protein 5.7 G/DL (6.4-8.3)
[2016-07-20 10:13] LABS: Acanthocytes Few; Band Neutrophils 57 % (0-10); Burr Cells 2+; Lymphocytes 7 % (20-55); Metamyelocytes 2 %; Myelocytes 2 %; Platelet Estimate Adequate; Polychromasia Slight; Segmented Neutrophils 26 % (50-85); Target Cells Slight; Total Cells Counted 100
[2016-07-20 10:24] LABS: Calcium 8.3 MG/DL (8.5-10.1); Magnesium 1.8 MG/DL (1.8-2.4); Osmolality,Calculated 293.4 MOS/KG (273-304); Potassium 5.2 MMOL/L (3.5-5.1)
--- NOTE | 2016-07-20 10:31 | Event Note ---
Mr Marques has made some improvements since admission. He is off the pressors and maintaining a good blood pressure. He had a bronch this morning that showed food and blood in his lungs. His nurse reports that Dr Francis was able to send large amount to the lab. Dr Zabala plans EGD today. He has not had blood in NGT but does have guaiac positive stool.
--- NOTE | 2016-07-20 10:34 | Hospitalist Progress Note ---
Assessment and Plan (1) Sepsis Status: Acute Assessment and plan: 1)sepsis from aspiration- cultures negative so far. On vanc and Zosyn. WBC 15.7 , afebrile. Off pressors since yesterday evening. 2)acute respiratory failure from aspiration with pneumonia- bronched this morning. stable on vent. requiring sedation now. On steroids. 3)neuro- etomidate lingered yesterday but has worn off now. head CT ok. moving and responding to pain but not following commands. He has a history of paranoid shcizophrenia which may impact his weaning protocol. restart Geodon and cogentin. 4)metabolic acidosis and ELY- creatinine up to 1.9, this is due to his sepsis. expect peak and resolution over the next few days. bicarb now 15, AG 20. monitor. Lactic acid came down on last check. should improve now that BP better. 5)hypomagnesemia- replace magnesium 6)nutrition- consult for tube feeds to reo asset manager. 7)anemia- transfused 2 units, continue to monitor hgb. suspect anemia is combined chronic disease and acute blood loss. 8)hyper ammoniemia- no history of liver disease or other evidence for it. on lactulose. Current Visit: No (2) Acute kidney failure Status: Acute Current Visit: Yes (3) Pneumonia Status: Acute Current Visit: No (4) Diabetes mellitus Status: Chronic Current Visit: Yes Qualifiers: Diabetes mellitus type: type 2 (5) Aspiration into airway Status: Acute Current Visit: Yes (6) Acute respiratory failure Status: Acute Current Visit: Yes (7) Metabolic encephalopathy Status: Acute Current Visit: Yes (8) Upper GI bleed Status: Acute Current Visit: Yes (9) Anemia Status: Acute Current Visit: Yes (10) Guaiac positive stools Status: Acute Current Visit: Yes (11) History of coronary artery bypass graft Status: Chronic Current Visit: Yes Hospitalist: Subjective Interval history: Mr Marques has made some improvements since admission. His head CT showed nothing acute. He is now very reponsive and requiring sedation on the vent. He has not followed commands, but localizes and withdraws to pain, rises up in bed, observed to move all 4 extremities spontaneously. He is off the pressors and maintaining a good blood pressure. He had a bronch this morning that showed food and blood in his lungs. His nurse reports that Dr Francis was able to send large amount to the lab. Dr Zabala plans EGD today. He has not had blood in NGT but does have guaiac positive stool. Exam - Constitutional Vitals: Period Temp Pulse Resp BP Sys/Loo Pulse Ox Last 24 Hr 95.9 F-98.1 F 65-83 12-20 84-171/56-97 97-100 General appearance: normal weight, no acute distress - Head Head exam: Present: normocephalic, atraumatic - Eye Eye exam: Present: EOMI. Absent: scleral icterus Pupils: Present: TOM - Respiratory Respiratory exam: Present: rales, rhonchi. Absent: wheezes - Cardiovascular Cardiovascular exam: Present: regular rate and rhythm - GI/Abdominal GI/Abdominal exam: Present: normal bowel sounds, soft. Absent: tenderness - Extremities Exam Extremities exam: Absent: edema Results - Labs CBC & BMP: 07/20/16 09:18 07/20/16 09:19 Lab Results: I have reviewed the past 24 hour labs
[2016-07-20] MEDS ORDERED: ROCURONIUM 100 MG/10 ML VIAL IV ONE (11:30)
[2016-07-20] MEDS ORDERED: ETOMIDATE 20 MG/10 ML VIAL IV ONE (11:30)
[2016-07-20] MEDS ORDERED: MIDAZOLAM 10 MG/2 ML VIAL ONE (11:54)
--- NOTE | 2016-07-20 11:57 | Anesthesia Post-Op ---
Anesthesia Post OP - Post Ansesthetic Evaluation Patient seen in post op: Yes Resp: within normal limits CV: within normal limits Mental: within normal limits Temp: within normal limits [id number]: within normal limits Nausea and Vomiting: within normal limits Pain: within normal limits
--- NOTE | 2016-07-20 11:57 | Operative Note ---
Date of procedure: 07/20/16 Pre-op diagnosis: Hematemesis, drop in hematocrit from 34.3 to 30.4%. Post-op diagnosis: other (66-year-old intubated patient with what appears to be LA class D erosive esophagitis 5 cm in the setting of gastroparesis likely both responsible for the patient's aspiration mixed with heme. He does have some diffuse gastritis from which biopsies are pending as well.) Procedure: PROCEDURE: Esophagogastroduodenoscopy (EGD) with cold biopsy for pathology REFERRING PHYSICIAN: Nubia Stewart MD INDICATIONS: Hematemesis in a patient who recently was intubated because of aspiration of material/blood. Patient's hematocrit during this admission is dropped down from 34% to 30%. The prior H&P was reviewed and interrim changes are as noted: No change from GI consultation yesterday ENDOSCOPIST: Brice Zabala MD ENDOSCOPE: Olympus Video 100 System upper endoscope ASA CLASS: 4 EXAM: CV: regular rate and rhythm respiratory: Clear without wheezes abdominal: active bowel sounds MEDICATION: Per nursing anesthesia protocol, see their notes PROCEDURE: After discussion of the potential risks and benefits of upper endoscopy, the informed consent was obtained. The patient was then placed in the left lateral decubitus position where sedation was achieved as noted above. Esophageal intubation was performed without difficulty, and the endoscope was advanced through the esophagus, stomach and duodenum. A slow withdrawal was then performed with retroflexion in the stomach for careful inspection of the incisura angularis, fundus and cardia. The scope was then returned to a neutral position and withdrawn through the esophagus. The patient tolerated the procedure well and without complication. BIOPSIES: Distal esophagus, gastric antrum/body obtained PHOTOGRAPHS: FINDINGS: Hypopharynx and Larynx: Normal aside from endotracheal tube going through the vocal cords. Esohagoscopy Upper and middle thirds: Upper esophagus has a change in the skin that appears consistent with an intestinal metaplasia without the salmon pink discoloration of Hurd's, biopsies were obtained. Lower third LA class D erosive esophagitis between 38 and 43 cm, likely the source for the patient's bleeding. Biopsied. Esophogastric junctions: LA class D erosive esophagitis between 38 and 43 cm, likely the source of the patient's bleeding Gastroscopy: Cardia/Fundus: 4 cm hiatal hernia, sliding type, fundal pool is filled with solid food and liquid food consistent with gastroparesis Body: Retained food consistent with gastroparesis with mild diffuse gastritis possibly stasis type, biopsied Antrum and pylorus mild patchy gastritis, biopsied Duodenoscopy: Bulb normal Second and third portions: Normal IMPRESSION: 66-year-old intubated patient with what appears to be LA class D erosive esophagitis 5 cm in the setting of gastroparesis likely both responsible for the patient's aspiration mixed with heme. He does have some diffuse gastritis from which biopsies are pending as well. RECOMMENDATIONS: Follow up for biopsy results in 1-2 weeks by phone [phone] Continue anti-gastroesophageal reflux measures (avoid carbonated and acidic beverages, avoid eating within 2 hours of bedtime, avoid tight fitting clothing , and elevate the front bed posts 6 inches prior to sleeping. Brice Zabala MD COPY TO: Nubia Stewart MD Anesthesia: MAC Surgeon / Physician: Brice Zabala Estimated blood loss: minimal Specimens: other (Gastric antrum/body, distal esophagus) Condition: stable Disposition: post procedure unit (G.I. Suite) Results - Labs CBC & BMP: 07/20/16 09:18 07/20/16 09:19 Discharge Plan - Discharge Medications No Action Insulin Detemir [Levemir] 36 unit SUBCUT 1700 Doxazosin Mesylate [Cardura] 8 mg PO PC SUPPER Atorvastatin [Lipitor] 40 mg PO BEDTIME Sitagliptin Phosphate [Januvia] 100 mg PO DAILY Ferrous Sulfate Tab [Feosol Original Tab] 325 mg PO TID tablet Metoprolol Succinate Xl [Toprol Xl] 12.5 mg PO BID tablet Allopurinol 100 mg PO DAILY Hydrocodone/Acetaminophen [Hydrocodon-Acetaminophen 5-325] 1 each PO BID Benztropine Tab [Cogentin Tab] 1 mg PO BID Cholecalciferol (Vitamin D3) [Vitamin D3] 2,000 unit PO DAILY Cilostazol 25 mg PO BID clonazePAM [Clonazepam] 0.5 mg PO BEDTIME Gabapentin Cap/Tab [Neurontin Cap/Tab] 300 mg PO TID hydroCHLOROthiazide [Hydrochlorothiazide] 25 mg PO DAILY Multivitamin [Multivitamins] 1 each PO DAILY Trazodone HCl 50 mg PO BEDTIME Polyethylene Glycol 3350 17 gm PO DAILY Acetaminophen Tab [Tylenol Tab] 650 mg PO Q8H PRN PRN Reason: Fever, Headache, Mild Pain Megestrol Acetate [Megace] 400 mg PO DAILY Lactulose 10 gm PO DAILY Glimepiride [Amaryl] 1 mg PO DAILY Aspirin EC Tab 81 mg PO DAILY Ziprasidone HCl [Geodon] 80 mg PO BID Docusate Sodium [Colace] 100 mg PO BID - Follow Up or Referral - Forms/Instructions
--- NOTE | 2016-07-20 12:06 | Gastrointestinal Progress Note ---
Assessment and Plan (1) Coffee ground emesis Status: Acute Assessment and plan: If the family agrees we can certainly proceed with upper endoscopy tomorrow in order to find a source for the patient's bleeding. The patient had been made a DNR previously and the family may wish not to be this aggressive. Complications include but are not limited to: Bleeding, infection, perforation, cardiac and pulmonary compromise. We can perform this procedure at the bedside tomorrow morning. In the meantime we will will certainly cover him with Protonix 40 mg IV twice daily and observe his hematocrit change director time. Upper GI bleeding may be feeding into his current iron deficiency anemia picture. His only anti-inflammatory agent is aspirin as an outpatient. 07/20/16--Upper endoscopy demonstrated the following: LA class D erosive esophagitis 5 cm in the setting of gastroparesis likely both responsible for the patient's aspiration mixed with heme. He does have some diffuse gastritis from which biopsies are pending as well. We will try him on some Reglan to see whether this helps with his underlying gastroparesis type picture. Patient is on multiple medications to help with his stool passage. I think it is important to continue his MiraLAX based on the amount of stool I disimpacted from him yesterday. Nursing staff states that he has a small amount of stool coming out at this point. Current Visit: Yes (2) Guaiac positive stools Status: Acute Assessment and plan: As noted above. I suspect this patient has erosive gastritis or duodenitis or esophagitis. AVMs and/or gastric cancer esophageal cancer not completely ruled out. Upper endoscopy is advised if the family is willing to proceed. 07/20/16--The hemorrhoids in the rectum as well as the LA class D erosive esophagitis or both causes for this patient's guaiac positive stools not to mention the gastritis seen. Continue Protonix, MiraLAX, and Reglan as noted above. Current Visit: Yes (3) Constipation Status: Acute Assessment and plan: Patient manually disimpacted during physical examination today. He may require some laxatives down the road if we begin to feed again. 07/20/16--We can start to feed again through this patient's NG tube, as per medicine. We need to keep an eye out for high residuals given his gastroparesis. Current Visit: Yes (4) Iron deficiency anemia Status: Acute Assessment and plan: Potential lower GI sources may also be feeding into an iron deficiency anemia. Because of the vomiting of coffee grounds we are not going to pursue colonoscopy during this admission. Currently the patient appears to have had a stroke. Will order ammonia level to see if this is simply a metabolic encephalopathy. 07/20/16--patient has an ammonia level of 33-47 today. This is acceptably low that I would not consider starting lactulose, especially given that this medication may bloat the patient excessively. Current Visit: Yes Gastroenterology - PN: Subj Interval history: Patient is intubated on the vent he is nonresponsive. Exam (Progress Note) - Constitutional Vitals: Period Temp Pulse Resp BP Sys/Loo Pulse Ox Last 24 Hr 95.9 F-98.1 F 65-83 14-20 94-171/56-97 99-100 General appearance: mild distress - Head Head exam: Present: normocephalic - Respiratory Respiratory exam: Present: clear to auscultation bilaterally - Cardiovascular Cardiovascular exam: Present: regular rate and rhythm - GI/Abdominal GI/Abdominal exam: Present: normal bowel sounds, distended, soft. Absent: guarding, tenderness, rebound - Extremities Exam Extremities exam: Present: edema - Neurological Exam Neurological exam: Present: altered (Patient is nonresponsive at this time) - Skin Skin exam: Present: warm Results - Labs CBC & BMP: 07/20/16 09:18 07/20/16 09:19
[2016-07-20] MEDS: METOCLOPRAMIDE 10 MG/2 ML VIAL IV SCH ×2 (12:12→17:01)
--- NOTE | 2016-07-20 14:46 | XRay Report ---
XR chest 1V portable Indication: Tube placement Comparison: None available Findings: Exam is centered over the lower chest and upper abdomen. NG tube is present with tip overlying the left upper quadrant. Impression: NG tube appears in appropriate x-ray position. PROCEDURE INTERPRETED AT [facility] DEPARTMENT OF RADIOLOGY Final Report Signed by: Dr. Tom Farley
[2016-07-20] MEDS: DOXAZOSIN 4 MG TABLET PO SCH (16:16)
[2016-07-20] MEDS: BENZTROPINE 1 MG TABLET PO SCH (20:48)
[2016-07-20] MEDS: DOCUSATE SODIUM 100 MG CAPSULE PO SCH (20:48)
[2016-07-20] MEDS: ATORVASTATIN 40 MG TABLET PO SCH (20:49)
[2016-07-20] MEDS: ZIPRASIDONE 20 MG CAPSULE PO SCH (20:49)
[2016-07-21] MEDS: INSULIN LISPRO 100 UNIT/ML SUBCUT SCH ×4 (00:59→18:09)
[2016-07-21] MEDS: METOCLOPRAMIDE 10 MG/2 ML VIAL IV SCH ×4 (00:59→18:09)
[2016-07-21] MEDS: methylPREDNISolone SOD SUC 40 MG/1 ML VIAL IV SCH ×3 (02:45→18:09)
[2016-07-21 04:12] LABS: Basophils % 0.2 % (0.0-0.8); Hematocrit 29.6 VOL% (42.0-52.0); Hemoglobin 9.3 GM/DL (14.0-18.0); Immature Granulocytes % 4.6 %; Lymphocytes # 0.4 10*3/uL (1.4-4.0); Lymphocytes % 2.2 % (21.2-54.2); Mean Corpuscular HGB Conc 31.4 GM/DL (32-36); Mean Corpuscular Hemoglobin 26 PG (27-34); Mean Corpuscular Volume 81.3 FL (87-102); Mean Platelet Volume 11.7 FL (9.6-12.0); Monocytes # 0.5 10*3/uL (0.11-0.8); Monocytes % 2.8 % (1.7-12.7); Neutrophils # 15.8 10*3/uL (1.4-7.4); Neutrophils % 90.2 % (38.7-73.9); Platelet Count 192 T/CUMM (130-400); Red Blood Count 3.64 MC/CUMM (3.8-5.5); Red Cell Distribution Width 16.4 % (9.3-17.3); White Blood Count 17.5 T/CUMM (4-12)
[2016-07-21] MEDS: ALBUTEROL/IPRATROPIUM 3 ML NEB RESP TX SCH ×5 (04:25→20:00)
[2016-07-21 04:43] LABS: Phosphorous 3.6 MG/DL (2.5-4.9); Prealbumin 12.8 MG/DL (20-40)
[2016-07-21 04:43] LABS: ABG Base Excess -5.1 MMOL/L (-2.5-2.5); ABG HCO3 20.2 MMOL/L (20-26); ABG PCO2 44.3 MM HG (35-48); ABG PH 7.292 (7.35-7.45); ABG TCO2 19.7 MMOL/L (23-27); Pt O2 Delivery Device Ventilator
[2016-07-21 04:44] LABS: Albumin 2.5 G/DL (3.4-5.0); Bilirubin,Total 0.6 MG/DL (0.2-1.0); Calcium 8.8 MG/DL (8.5-10.1); Osmolality,Calculated 300.8 MOS/KG (273-304); Potassium 4.1 MMOL/L (3.5-5.1); Total Protein 5.8 G/DL (6.4-8.3)
[2016-07-21 04:58] LABS: Magnesium 2.6 MG/DL (1.8-2.4); Osmolality,Calculated 300.8 MOS/KG (273-304); Potassium 4.1 MMOL/L (3.5-5.1)
[2016-07-21 05:18] LABS: Band Neutrophils 4 % (0-10); Lymphocytes 1 % (20-55); Metamyelocytes 2 %; Myelocytes 2 %; Segmented Neutrophils 89 % (50-85); Total Cells Counted 100
[2016-07-21 05:21] LABS: Burr Cells 1+; Platelet Estimate Normal
[2016-07-21 05:22] LABS: Acanthocytes Few; Schistocytes Few
[2016-07-21] MEDS: PIPERACILLIN/TAZOBACTAM 3,375 MG in SODIUM CHLORIDE 0.9% 100 ML IV SCH ×3 (06:12→23:15)
--- NOTE | 2016-07-21 06:40 | Pulmonology Progress Note ---
Pulmonary - PN: Subj Interval history: Patient is a 66-year-old black man that is on the ventilator in the ICU. He apparently had some GI bleeding and vomiting and likely aspirated. He has chronic renal failure and schizophrenia. He is a diabetic. He had an EGD that showed some esophagitis and gastritis. He has been quite stable on the ventilator. He is doing some CPAP trials. His chest x-ray shows right lung infiltrate and he is getting treatment for pneumonia. Exam (Progress Note) - Constitutional Vitals: Period Temp Pulse Resp BP Sys/Loo Pulse Ox Last 24 Hr 95.2 F-97.6 F 71-108 13-22 102-159/56-83 100-100 General appearance: normal weight, no acute distress (Patient is comfortable on the ventilator.) - Head Head exam: Present: normal inspection, normocephalic - Eye Eye exam: Present: EOMI. Absent: scleral icterus Pupils: Present: TOM - ENT ENT exam: Present: other (ET tube is in good position) - Neck Neck exam: Present: normal inspection. Absent: lymphadenopathy, thyromegaly - Respiratory Respiratory exam: Present: rhonchi, other (He has good breath sounds bilaterally is moving air fairly well.). Absent: accessory muscle use - Cardiovascular Cardiovascular exam: Present: regular rate and rhythm. Absent: gallop, systolic murmur - GI/Abdominal GI/Abdominal exam: Present: hypoactive bowel sounds, soft. Absent: distended, organomegaly, tenderness - Extremities Exam Extremities exam: Absent: calf tenderness, edema - Neurological Exam Neurological exam: Present: altered (Patient is sedated now but does arouse okay when off sedation.) - Psychiatric Psychiatric exam: Present: other (He has a history of schizophrenia) - Skin Skin exam: Present: warm, dry Results - Labs CBC & BMP: 07/21/16 03:33 07/21/16 03:33 Labs: PO2 is 153 with a PCO2 of 44 and a pH of 7.29 - Diagnostic Findings Procedure: Chest x-ray: image reviewed by me, report reviewed by me (Chest x- ray still shows some right lung infiltrate.) Assessment and Plan (1) Diabetes mellitus with stage 2 chronic kidney disease, with long-term current use of insulin Status: Chronic Assessment and plan: Patient's glucoses are being monitored and his glucose was 190 this morning. Current Visit: No (2) Sepsis Status: Acute Assessment and plan: The patient was felt to be septic when he came in and has aspiration pneumonia. He is hemodynamically stable now and getting antibiotics. Current Visit: No (3) Coronary artery disease Status: Acute Assessment and plan: Patient has a history of coronary artery disease. Current Visit: Yes (4) Aspiration into airway Status: Acute Assessment and plan: The patient is being treated for right lung pneumonia. Current Visit: Yes (5) Acute respiratory failure Status: Acute Assessment and plan: Patient is fairly stable on the ventilator and will continue with weaning trials. Will lower his FiO2. Current Visit: Yes (6) Upper GI bleed Status: Acute Assessment and plan: His EGD showed esophagitis and gastritis and his breathing is better. His hematocrit is stable around 30. Current Visit: Yes (7) Hypertension Status: Chronic Assessment and plan: His blood pressure is under good control. Current Visit: Yes (8) History of coronary artery bypass graft Status: Chronic Assessment and plan: He has stable coronary artery disease at present. Current Visit: Yes (9) Acute kidney failure Status: Acute Assessment and plan: His renal function has improved and his creatinine is down to 1.6. Current Visit: Yes
[2016-07-21] MEDS: SODIUM CHLORIDE 0.9% 1,000 ML IV SCH ×3 (09:34→12:51)
[2016-07-21] MEDS: LACTULOSE 20 GM/30 ML UDCUP PO SCH ×3 (09:34→21:25)
[2016-07-21] MEDS: MIDAZOLAM 100 MG in SODIUM CHLORIDE 0.9% 80 ML IV SCH (09:34)
--- NOTE | 2016-07-21 09:34 | Hospitalist Progress Note ---
Assessment and Plan - Time spent with patient Time spent with patient: Greater than 30 minutes (1) Acute respiratory failure Status: Acute Assessment and plan: On spontanous breathing trial and doing well. Anticipate liberation from vent soon. Pulmonary following. Current Visit: Yes (2) Pneumonia Status: Acute Assessment and plan: On empiric IV abx. Culture neg thus far. Suspected aspiration pneumonia. Clinically improved. Current Visit: No (3) Upper GI bleed Status: Acute Assessment and plan: EGD noted. No active bleeding. Hb stable. Current Visit: Yes (4) Acute kidney failure Status: Acute Assessment and plan: Improving Current Visit: Yes (5) Diabetes mellitus with stage 2 chronic kidney disease, with long-term current use of insulin Status: Chronic Current Visit: No Hospitalist: Subjective Interval history: No acute events overnight. Off sedation on spontaneous breathing trial this am. EGD and bronch results noted. Exam - Constitutional Vitals: Period Temp Pulse Resp BP Sys/Loo Pulse Ox Last 24 Hr 95.2 F-97.6 F 72-108 13-22 102-159/56-83 100-100 Exam: Resting quietly on vent. ETT and OGT in place. - Head Head exam: Present: normal inspection - Eye Eye exam: Present: EOMI. Absent: scleral icterus Pupils: Present: TOM - Neck Neck exam: Present: normal inspection - Respiratory Respiratory exam: Present: clear to auscultation bilaterally - Cardiovascular Cardiovascular exam: Present: regular rate and rhythm - GI/Abdominal GI/Abdominal exam: Present: normal bowel sounds. Absent: distended, tenderness - Extremities Exam Extremities exam: Present: normal inspection - Neurological Exam Neurological exam: Present: alert (unable to access ), other - Skin Skin exam: Present: normal color, warm Results - Labs CBC & BMP: 07/21/16 03:33 07/21/16 03:33 - Diagnostic Findings Procedure: Chest x-ray: report reviewed by me
[2016-07-21] MEDS: ZIPRASIDONE 20 MG CAPSULE PO SCH ×2 (09:35→21:25)
[2016-07-21] MEDS: CHOLECALCIFEROL 1,000 UNIT TABLET PO SCH (09:35)
[2016-07-21] MEDS: PANTOPRAZOLE 40 MG VIAL IV SCH ×2 (09:35→21:26)
[2016-07-21] MEDS: BENZTROPINE 1 MG TABLET PO SCH ×2 (09:36→21:25)
[2016-07-21] MEDS: DOCUSATE SODIUM 100 MG CAPSULE PO SCH ×2 (09:36→21:25)
[2016-07-21] MEDS: POLYETHYLENE GLYCOL POWDER 17 GM PACK PO SCH (09:36)
[2016-07-21] MEDS: MULTIVITAMIN (CENTRUM) TABLET PO SCH (09:36)
--- NOTE | 2016-07-21 09:49 | Gastrointestinal Progress Note ---
Assessment and Plan (1) Coffee ground emesis Status: Acute Assessment and plan: If the family agrees we can certainly proceed with upper endoscopy tomorrow in order to find a source for the patient's bleeding. The patient had been made a DNR previously and the family may wish not to be this aggressive. Complications include but are not limited to: Bleeding, infection, perforation, cardiac and pulmonary compromise. We can perform this procedure at the bedside tomorrow morning. In the meantime we will will certainly cover him with Protonix 40 mg IV twice daily and observe his hematocrit change advisor time. Upper GI bleeding may be feeding into his current iron deficiency anemia picture. His only anti-inflammatory agent is aspirin as an outpatient. 07/20/16--Upper endoscopy demonstrated the following: LA class D erosive esophagitis 5 cm in the setting of gastroparesis likely both responsible for the patient's aspiration mixed with heme. He does have some diffuse gastritis from which biopsies are pending as well. We will try him on some Reglan to see whether this helps with his underlying gastroparesis type picture. Patient is on multiple medications to help with his stool passage. I think it is important to continue his MiraLAX based on the amount of stool I disimpacted from him yesterday. Nursing staff states that he has a small amount of stool coming out at this point. 07/21/16--Hematocrit is stable having gone from 30.4-->29.6%. The patient is getting Protonix 40 mg IV twice daily but I could certainly be switched over to Prevacid Solutab's 30 mg per NG tube twice daily, for the underlying LA class D erosive esophagitis. There was a fair amount of retained fluid in the stomach but it appears that his gastric emptying is now improved on the Reglan given. Diffuse gastritis noted with biopsies pending at this time. Current Visit: Yes (2) Guaiac positive stools Status: Acute Assessment and plan: As noted above. I suspect this patient has erosive gastritis or duodenitis or esophagitis. AVMs and/or gastric cancer esophageal cancer not completely ruled out. Upper endoscopy is advised if the family is willing to proceed. 07/20/16--The hemorrhoids in the rectum as well as the LA class D erosive esophagitis or both causes for this patient's guaiac positive stools not to mention the gastritis seen. Continue Protonix, MiraLAX, and Reglan as noted above. 07/21/16--Continue medications as noted above. If his hematocrit remained stable tomorrow we will likely sign off the case at that point. Current Visit: Yes (3) Constipation Status: Acute Assessment and plan: Patient manually disimpacted during physical examination today. He may require some laxatives down the road if we begin to feed again. 07/20/16--We can start to feed again through this patient's NG tube, as per medicine. We need to keep an eye out for high residuals given his gastroparesis. 07/21/16--The patient is getting a combination of both MiraLAX and lactulose. I would be very surprised if he did not have significant diarrhea in the short- term. I am not sure that his ammonia level was high enough to rate lactulose in addition to the MiraLAX, but will leave this up to the hospitalist. His current ammonia level is 22 and he does not seem any more mentally alert to me. Would suggest discontinuation of lactulose. Current Visit: Yes (4) Iron deficiency anemia Status: Acute Assessment and plan: Potential lower GI sources may also be feeding into an iron deficiency anemia. Because of the vomiting of coffee grounds we are not going to pursue colonoscopy during this admission. Currently the patient appears to have had a stroke. Will order ammonia level to see if this is simply a metabolic encephalopathy. 07/20/16--patient has an ammonia level of 33-47 today. This is acceptably low that I would not consider starting lactulose, especially given that this medication may bloat the patient excessively. 07/21/16--Patient's hematocrit is stable. Continue Protonix versus use of Prevacid Solutab's. Note that if the patient requires a PEG tube long-term I can provide that as well. Current Visit: Yes Gastroenterology - PN: Subj Interval history: This patient is still obtunded but is starting to move a little bit more with tachycardia indicative of some underlying anxiety issues which is an improvement. His residuals have been fairly low on his 40 mL/h of tube feedings. Last checked approximately 10 mL over the shift. Exam (Progress Note) - Constitutional Vitals: Period Temp Pulse Resp BP Sys/Loo Pulse Ox Last 24 Hr 95.2 F-97.6 F 72-110 13-22 102-159/56-83 100-100 General appearance: no acute distress - Head Head exam: Present: normocephalic - Respiratory Respiratory exam: Present: clear to auscultation bilaterally. Absent: rhonchi, stridor - Cardiovascular Cardiovascular exam: Present: regular rate and rhythm, tachycardia - GI/Abdominal GI/Abdominal exam: Present: normal bowel sounds, soft. Absent: distended, guarding, tenderness - Extremities Exam Extremities exam: Present: edema (Notably in the patient's dorsal hands and distal extremities) - Neurological Exam Neurological exam: Present: altered (Patient is nonresponsive on the vent.) - Skin Skin exam: Present: warm Results - Labs CBC & BMP: 07/21/16 03:33 07/21/16 03:33
[2016-07-21] MEDS: VANCOMYCIN INJ 1,250 MG in SODIUM CHLORIDE 0.9% 250 ML IV SCH ×2 (10:59→21:33)
[2016-07-21] MEDS: PROPOFOL 1,000 MG/100 ML BOTTLE IV SCH ×2 (11:35→21:43)
[2016-07-21] MEDS: METOPROLOL TARTRATE 25 MG TABLET PO SCH ×2 (15:12→21:26)
[2016-07-21] MEDS: DOXAZOSIN 4 MG TABLET PO SCH (16:07)
--- NOTE | 2016-07-21 16:32 | XRay Report ---
Referring Physician: Dima Suggs MD Exam: XR chest 1V portable Date: July 21, 2016 at 3:40 PM Reason: NG tube placement Comparison: Chest one view portable July 20, 2016 Findings: An endotracheal tube is in place with its distal tip at the level of the aortic arch. A feeding tube is also present with its distal tip within the gastric body. The cardiac silhouette is again mildly enlarged, and the patient is status post sternotomy. There are scattered opacities within the right lung and possibly within the left lung. This is concerning for pneumonia. No pneumothorax is identified. The osseous structures appear stable. The visualized bowel gas pattern is nonobstructive. Impression: 1. A feeding tube is in place with its distal tip within the gastric body. 2. There are scattered opacities within the right lung and possibly with the left lung. This is concerning for pneumonia, and the opacities have slightly improved on the right. PROCEDURE INTERPRETED AT [facility] DEPARTMENT OF RADIOLOGY Final Report Signed by: Dr. Jorge Ford
[2016-07-21] MEDS: ATORVASTATIN 40 MG TABLET PO SCH (21:25)
[2016-07-22] MEDS: ALBUTEROL/IPRATROPIUM 3 ML NEB RESP TX SCH ×7 (00:36→23:54)
[2016-07-22] MEDS: METOCLOPRAMIDE 10 MG/2 ML VIAL IV SCH ×5 (00:40→23:29)
[2016-07-22] MEDS: INSULIN LISPRO 100 UNIT/ML SUBCUT SCH ×5 (00:40→23:29)
[2016-07-22] MEDS: methylPREDNISolone SOD SUC 40 MG/1 ML VIAL IV SCH ×3 (02:24→18:43)
[2016-07-22 03:40] LABS: Allen Test Positive; Pt O2 Delivery Device Ventilator
[2016-07-22 03:41] LABS: ABG Base Excess -1.6 MMOL/L (-2.5-2.5); ABG HCO3 21.7 MMOL/L (20-26); ABG Oxygen Saturation 98.2 % (95-100); ABG PCO2 31.6 MM HG (35-48); ABG PH 7.455 (7.35-7.45); ABG PO2 123.1 MM HG (80-95); ABG TCO2 22.7 MMOL/L (23-27)
[2016-07-22 03:50] LABS: Albumin 2.2 G/DL (3.4-5.0); Bilirubin,Total 0.5 MG/DL (0.2-1.0); Calcium 8.3 MG/DL (8.5-10.1); Magnesium 2.6 MG/DL (1.8-2.4); Osmolality,Calculated 303.7 MOS/KG (273-304); Potassium 4.1 MMOL/L (3.5-5.1); Total Protein 5.5 G/DL (6.4-8.3)
[2016-07-22 03:58] LABS: Basophils % 0.2 % (0.0-0.8); Hemoglobin 8.9 GM/DL (14.0-18.0); Immature Granulocytes % 0.3 %; Immature Granulocytes Absolute 0.07 #; Lymphocytes # 0.6 10*3/uL (1.4-4.0); Lymphocytes % 2.8 % (21.2-54.2); Mean Corpuscular Hemoglobin 26 PG (27-34); Mean Corpuscular Volume 78.5 FL (87-102); Mean Platelet Volume 11.9 FL (9.6-12.0); Monocytes # 0.6 10*3/uL (0.11-0.8); Monocytes % 2.6 % (1.7-12.7); NRBC # 0.02 10*3/uL; Neutrophils # 20.7 10*3/uL (1.4-7.4); Neutrophils % 94.1 % (38.7-73.9); Platelet Count 185 T/CUMM (130-400); Red Blood Count 3.44 MC/CUMM (3.8-5.5); Red Cell Distribution Width 17.2 % (9.3-17.3)
[2016-07-22] MEDS: PROPOFOL 1,000 MG/100 ML BOTTLE IV SCH ×2 (04:53→13:05)
[2016-07-22 05:33] LABS: Band Neutrophils 5 % (0-10); Eosinophils 1 % (0-10); Hypochromasia 1+; Lymphocytes 1 % (20-55); Platelet Estimate Normal; Segmented Neutrophils 90 % (50-85); Total Cells Counted 100
[2016-07-22] MEDS: PIPERACILLIN/TAZOBACTAM 3,375 MG in SODIUM CHLORIDE 0.9% 100 ML IV SCH ×2 (06:18→18:41)
[2016-07-22] MEDS: hydrALAZINE 20 MG/1 ML VIAL IV PRN (06:41)
--- NOTE | 2016-07-22 06:47 | Pulmonology Progress Note ---
Pulmonary - PN: Subj Interval history: Patient is a 66-year-old black man that is on the ventilator in the ICU. He apparently had some GI bleeding and vomiting and likely aspirated. He has chronic renal failure and schizophrenia. He is a diabetic. He had an EGD that showed some esophagitis and gastritis. He has been quite stable on the ventilator. His oxygenation is better and he is doing CPAP trials fairly well now. His chest x-ray still shows some mild right lower lobe infiltrate. He apparently is responding a little better also. Overall he is improving and can probably be extubated soon. Exam (Progress Note) - Constitutional Vitals: Period Temp Pulse Resp BP Sys/Loo Pulse Ox Last 24 Hr 98.7 F-99.4 F 64-110 12-31 142-182/69-99 99-100 Exam: General appearance: normal weight, no acute distress (Patient is comfortable on the ventilator. He still has some sedation on board) - Head Head exam: Present: normal inspection, normocephalic - Eye Eye exam: Present: EOMI. Absent: scleral icterus Pupils: Present: TOM - ENT ENT exam: Present: other (ET tube is in good position) - Neck Neck exam: Present: normal inspection. Absent: lymphadenopathy, thyromegaly - Respiratory Respiratory exam: Present: His lungs have good breath sounds bilaterally and is not wheezing. He seems to be moving air reasonably well. - Cardiovascular Cardiovascular exam: Present: regular rate and rhythm. Absent: gallop, systolic murmur - GI/Abdominal GI/Abdominal exam: Present: hypoactive bowel sounds, soft. Absent: distended, organomegaly, tenderness - Extremities Exam Extremities exam: Absent: calf tenderness, edema - Neurological Exam Neurological exam: Present: altered (Patient is sedated now but does arouse okay when off sedation.) - Psychiatric Psychiatric exam: Present: other (He has a history of schizophrenia) - Skin Skin exam: Present: warm, dry Results - Labs CBC & BMP: 07/22/16 02:32 07/22/16 02:32 Labs: PO2 is 123 with a PCO2 of 31 and pH of 7.45 - Diagnostic Findings Procedure: Chest x-ray: image reviewed by me, report reviewed by me (Chest x- ray still has some right lower lobe infiltrate.) Assessment and Plan (1) Diabetes mellitus with stage 2 chronic kidney disease, with long-term current use of insulin Status: Chronic Assessment and plan: Patient's glucoses are being monitored and his glucose was 179 this morning. Current Visit: No (2) Sepsis Status: Acute Assessment and plan: The patient was felt to be septic when he came in and has aspiration pneumonia. He is hemodynamically stable now and getting antibiotics. Current Visit: No (3) Coronary artery disease Status: Acute Assessment and plan: Patient has a history of coronary artery disease. He does not have any signs of heart failure now. Current Visit: Yes (4) Aspiration into airway Status: Acute Assessment and plan: The patient is being treated for right lung pneumonia. His x-ray is slowly improving. His oxygenation is much better. He can probably come off the ventilator soon. Current Visit: Yes (5) Acute respiratory failure Status: Acute Assessment and plan: Patient is fairly stable on the ventilator and will continue with weaning trials. His chest x-ray and oxygenation are improving. Current Visit: Yes (6) Upper GI bleed Status: Acute Assessment and plan: His EGD showed esophagitis and gastritis and his breathing is better. His hematocrit is 27 today. Current Visit: Yes (7) Hypertension Status: Chronic Assessment and plan: His blood pressure is reasonable but does go up at times. Current Visit: Yes (8) History of coronary artery bypass graft Status: Chronic Assessment and plan: He has stable coronary artery disease at present. Current Visit: Yes (9) Acute kidney failure Status: Acute Assessment and plan: His renal function has improved and his creatinine is down to 1.5. Current Visit: Yes
--- NOTE | 2016-07-22 08:47 | Hospitalist Progress Note ---
Assessment and Plan (1) Acute respiratory failure Status: Acute Assessment and plan: On spontanous breathing trial and doing well. Anticipate liberation from vent soon, defer to pulmonary Current Visit: Yes (2) Pneumonia Status: Acute Assessment and plan: On empiric IV abx. Culture remains negative. Suspected aspiration pneumonia. Clinically improved. Current Visit: No (3) Upper GI bleed Status: Acute Assessment and plan: EGD noted. No active bleeding. Hb slowly drifting down but still stable Current Visit: Yes (4) Acute kidney failure Status: Acute Assessment and plan: Improving Current Visit: Yes (5) Diabetes mellitus with stage 2 chronic kidney disease, with long-term current use of insulin Status: Chronic Current Visit: No Hospitalist: Subjective Interval history: No acute problems over night. Continues on spon breathing trial this am. Low dose propofol for sedation. Exam - Constitutional Vitals: Period Temp Pulse Resp BP Sys/Loo Pulse Ox Last 24 Hr 98.9 F-99.4 F 64-110 12-31 151-182/72-99 99-100 General appearance: other (resting quietly on vent) - Head Head exam: Present: normal inspection, normocephalic, atraumatic - Eye Eye exam: Absent: conjunctival injection, scleral icterus Pupils: Present: TOM - ENT ENT exam: Present: other (ETT and NGT in place) - Neck Neck exam: Present: normal inspection - Respiratory Respiratory exam: Present: clear to auscultation bilaterally. Absent: rales, rhonchi, wheezes - Cardiovascular Cardiovascular exam: Present: regular rate and rhythm. Absent: gallop, rubs - GI/Abdominal GI/Abdominal exam: Present: hypoactive bowel sounds. Absent: distended, guarding, tenderness - Extremities Exam Extremities exam: Present: normal capillary refill, edema - Neurological Exam Neurological exam: Present: other (opens eyes to tactile stimulus. moves all ext ) - Psychiatric Psychiatric exam: Present: other (UTO) - Skin Skin exam: Present: normal color, warm, dry Results - Labs CBC & BMP: 07/22/16 02:32 07/22/16 02:32 - Diagnostic Findings Procedure: Chest x-ray: report reviewed by me
--- NOTE | 2016-07-22 09:25 | Gastrointestinal Progress Note ---
Assessment and Plan (1) Coffee ground emesis Status: Acute Assessment and plan: If the family agrees we can certainly proceed with upper endoscopy tomorrow in order to find a source for the patient's bleeding. The patient had been made a DNR previously and the family may wish not to be this aggressive. Complications include but are not limited to: Bleeding, infection, perforation, cardiac and pulmonary compromise. We can perform this procedure at the bedside tomorrow morning. In the meantime we will will certainly cover him with Protonix 40 mg IV twice daily and observe his hematocrit change control specialist time. Upper GI bleeding may be feeding into his current iron deficiency anemia picture. His only anti-inflammatory agent is aspirin as an outpatient. 07/20/16--Upper endoscopy demonstrated the following: LA class D erosive esophagitis 5 cm in the setting of gastroparesis likely both responsible for the patient's aspiration mixed with heme. He does have some diffuse gastritis from which biopsies are pending as well. We will try him on some Reglan to see whether this helps with his underlying gastroparesis type picture. Patient is on multiple medications to help with his stool passage. I think it is important to continue his MiraLAX based on the amount of stool I disimpacted from him yesterday. Nursing staff states that he has a small amount of stool coming out at this point. 07/21/16--Hematocrit is stable having gone from 30.4-->29.6%. The patient is getting Protonix 40 mg IV twice daily but I could certainly be switched over to Prevacid Solutab's 30 mg per NG tube twice daily, for the underlying LA class D erosive esophagitis. There was a fair amount of retained fluid in the stomach but it appears that his gastric emptying is now improved on the Reglan given. Diffuse gastritis noted with biopsies pending at this time. 07/22/16--patient's hematocrit has dropped down to 27%. He remains on Protonix twice daily. Continue Reglan for likely gastroparesis. No further recommendations for this patient. We can place a PEG tube in the future if the patient's family insists. Please let me know if this is the case, will sign off at the present time. Current Visit: Yes (2) Guaiac positive stools Status: Acute Assessment and plan: As noted above. I suspect this patient has erosive gastritis or duodenitis or esophagitis. AVMs and/or gastric cancer esophageal cancer not completely ruled out. Upper endoscopy is advised if the family is willing to proceed. 07/20/16--The hemorrhoids in the rectum as well as the LA class D erosive esophagitis or both causes for this patient's guaiac positive stools not to mention the gastritis seen. Continue Protonix, MiraLAX, and Reglan as noted above. 07/21/16--Continue medications as noted above. If his hematocrit remained stable tomorrow we will likely sign off the case at that point. 07/22/16--Not surprising given the LA class D erosive esophagitis as noted above. Patient's hematocrit has been slowly drifting. He may require transfusion again at some point. The Protonix will take some time before the above is healed. Current Visit: Yes (3) Constipation Status: Acute Assessment and plan: Patient manually disimpacted during physical examination today. He may require some laxatives down the road if we begin to feed again. 07/20/16--We can start to feed again through this patient's NG tube, as per medicine. We need to keep an eye out for high residuals given his gastroparesis. 07/21/16--The patient is getting a combination of both MiraLAX and lactulose. I would be very surprised if he did not have significant diarrhea in the short- term. I am not sure that his ammonia level was high enough to rate lactulose in addition to the MiraLAX, but will leave this up to the hospitalist. His current ammonia level is 22 and he does not seem any more mentally alert to me. Would suggest discontinuation of lactulose. 07/22/16--Patient is having some output of stool each day. Continue laxatives. Please let me know if I can be of further help in this patient but will sign off for the present time. Current Visit: Yes (4) Iron deficiency anemia Status: Acute Assessment and plan: Potential lower GI sources may also be feeding into an iron deficiency anemia. Because of the vomiting of coffee grounds we are not going to pursue colonoscopy during this admission. Currently the patient appears to have had a stroke. Will order ammonia level to see if this is simply a metabolic encephalopathy. 07/20/16--patient has an ammonia level of 33-47 today. This is acceptably low that I would not consider starting lactulose, especially given that this medication may bloat the patient excessively. 07/21/16--Patient's hematocrit is stable. Continue Protonix versus use of Prevacid Solutab's. Note that if the patient requires a PEG tube long-term I can provide that as well. 07/21/16--As above. Current Visit: Yes Gastroenterology - PN: Subj Interval history: Patient doing about the same. Still on the ventilator. Hematocrit is demonstrated very slow drift from 34.3 slowly drifting down down to 27. Upper endoscopy results previously noted. Patient is an NG tube in place. Exam (Progress Note) - Constitutional Vitals: Period Temp Pulse Resp BP Sys/Loo Pulse Ox Last 24 Hr 98.9 F-99.4 F 64-110 12-31 151-182/75-99 99-100 General appearance: no acute distress - Head Head exam: Present: normocephalic - Respiratory Respiratory exam: Present: decreased breath sounds (In the basis). Absent: wheezes - Cardiovascular Cardiovascular exam: Present: regular rate and rhythm - GI/Abdominal GI/Abdominal exam: Present: normal bowel sounds, distended. Absent: guarding, tenderness, rebound - Extremities Exam Extremities exam: Absent: edema - Back Exam Back exam: Present: normal inspection - Neurological Exam Neurological exam: Present: altered (Patient remains obtunded on the vent-- he withdraws from painful stimuli), motor sensory deficit - Psychiatric Psychiatric exam: Present: flat affect Results - Labs CBC & BMP: 07/22/16 02:32 07/22/16 02:32
[2016-07-22] MEDS: MULTIVITAMIN (CENTRUM) TABLET PO SCH (09:58)
[2016-07-22] MEDS: DOCUSATE SODIUM 100 MG CAPSULE PO SCH ×2 (09:59→20:12)
[2016-07-22] MEDS: BENZTROPINE 1 MG TABLET PO SCH ×2 (09:59→20:12)
[2016-07-22] MEDS: ZIPRASIDONE 20 MG CAPSULE PO SCH ×2 (09:59→20:12)
[2016-07-22] MEDS: LACTULOSE 20 GM/30 ML UDCUP PO SCH ×3 (09:59→20:12)
[2016-07-22] MEDS: METOPROLOL TARTRATE 25 MG TABLET PO SCH ×2 (10:00→20:13)
[2016-07-22] MEDS: CHOLECALCIFEROL 1,000 UNIT TABLET PO SCH (10:01)
[2016-07-22] MEDS: POLYETHYLENE GLYCOL POWDER 17 GM PACK PO SCH (10:01)
[2016-07-22] MEDS: PANTOPRAZOLE 40 MG VIAL IV SCH ×2 (10:04→20:12)
[2016-07-22] MEDS: SODIUM CHLORIDE 0.9% 1,000 ML IV SCH ×4 (10:36→21:11)
[2016-07-22] MEDS: DOXAZOSIN 4 MG TABLET PO SCH (18:49)
[2016-07-22] MEDS: ATORVASTATIN 40 MG TABLET PO SCH (20:12)
[2016-07-22] MEDS: VANCOMYCIN INJ 1,250 MG in SODIUM CHLORIDE 0.9% 250 ML IV SCH (22:56)
[2016-07-23] MEDS: PROPOFOL 1,000 MG/100 ML BOTTLE IV SCH ×4 (00:30→23:21)
[2016-07-23] MEDS: methylPREDNISolone SOD SUC 40 MG/1 ML VIAL IV SCH ×2 (01:49→09:39)
[2016-07-23] MEDS: hydrALAZINE 20 MG/1 ML VIAL IV PRN ×2 (02:05→14:04)
[2016-07-23] MEDS: ALBUTEROL/IPRATROPIUM 3 ML NEB RESP TX SCH ×6 (03:24→22:57)
[2016-07-23 03:40] LABS: ABG Base Excess -2.7 MMOL/L (-2.5-2.5); ABG HCO3 21.5 MMOL/L (20-26); ABG Oxygen Saturation 95.4 % (95-100); ABG PH 7.406 (7.35-7.45); ABG PO2 79.4 MM HG (80-95); ABG TCO2 22.6 MMOL/L (23-27); Allen Test Positive; Pt O2 Delivery Device Ventilator
[2016-07-23] MEDS: SODIUM CHLORIDE 0.9% 1,000 ML IV SCH ×4 (04:21→19:33)
[2016-07-23 06:15] LABS: Basophils % 0.1 % (0.0-0.8); Hematocrit 28.3 VOL% (42.0-52.0); Hemoglobin 9.2 GM/DL (14.0-18.0); Immature Granulocytes % 0.6 %; Immature Granulocytes Absolute 0.11 #; Lymphocytes # 0.7 10*3/uL (1.4-4.0); Lymphocytes % 3.7 % (21.2-54.2); Mean Corpuscular HGB Conc 32.5 GM/DL (32-36); Mean Corpuscular Hemoglobin 26 PG (27-34); Mean Corpuscular Volume 79.1 FL (87-102); Mean Platelet Volume 12.3 FL (9.6-12.0); Monocytes # 0.8 10*3/uL (0.11-0.8); Monocytes % 4.1 % (1.7-12.7); NRBC # 0.03 10*3/uL; Neutrophils # 17.1 10*3/uL (1.4-7.4); Neutrophils % 91.5 % (38.7-73.9); Platelet Count 191 T/CUMM (130-400); Red Blood Count 3.58 MC/CUMM (3.8-5.5); Red Cell Distribution Width 17.5 % (9.3-17.3); White Blood Count 18.7 T/CUMM (4-12)
[2016-07-23] MEDS: PIPERACILLIN/TAZOBACTAM 3,375 MG in SODIUM CHLORIDE 0.9% 100 ML IV SCH ×3 (06:28→21:42)
[2016-07-23] MEDS: METOCLOPRAMIDE 10 MG/2 ML VIAL IV SCH (06:28)
[2016-07-23] MEDS: INSULIN LISPRO 100 UNIT/ML SUBCUT SCH ×3 (06:28→17:35)
[2016-07-23 06:45] LABS: Calcium 8.2 MG/DL (8.5-10.1); Magnesium 2.6 MG/DL (1.8-2.4); Osmolality,Calculated 305.1 MOS/KG (273-304); Potassium 4.5 MMOL/L (3.5-5.1)
[2016-07-23 06:46] LABS: Band Neutrophils 8 % (0-10); Burr Cells 2+; Giant Platelets Few; Hypochromasia 1+; Lymphocytes 9 % (20-55); Microcytosis 2+; Platelet Estimate Adequate; Segmented Neutrophils 81 % (50-85); Total Cells Counted 100
[2016-07-23 06:49] LABS: Albumin 2.4 G/DL (3.4-5.0); Bilirubin,Total 0.5 MG/DL (0.2-1.0); Calcium 8.4 MG/DL (8.5-10.1); Potassium 4.5 MMOL/L (3.5-5.1); Total Protein 5.5 G/DL (6.4-8.3)
--- NOTE | 2016-07-23 08:32 | XRay Report ---
XR chest 1V portable Indication: Ventilator Comparison: Chest x-ray dated July 20, 2016 at 3:23 AM Technique: Single frontal view of the chest Findings: Endotracheal tube stable in positioning. Cardiomediastinal silhouette is stable configuration status post sternotomy. Significantly improved right lung opacification and right pleural fluid with a small amount of right infrahilar atelectasis/consolidation remaining and probable small right pleural fluid remaining. Osseous and surrounding soft tissue structures appear grossly unchanged. IMPRESSION: As above. PROCEDURE INTERPRETED AT [facility] DEPARTMENT OF RADIOLOGY Final Report Signed by: Dr Kush Otero
[2016-07-23] MEDS: CHOLECALCIFEROL 1,000 UNIT TABLET PO SCH (08:40)
[2016-07-23] MEDS: POLYETHYLENE GLYCOL POWDER 17 GM PACK PO SCH (08:41)
[2016-07-23] MEDS: METOPROLOL TARTRATE 25 MG TABLET PO SCH (08:41)
[2016-07-23] MEDS: DOCUSATE SODIUM 100 MG CAPSULE PO SCH ×2 (08:42→20:38)
[2016-07-23] MEDS: ZIPRASIDONE 20 MG CAPSULE PO SCH (08:42)
[2016-07-23] MEDS: LACTULOSE 20 GM/30 ML UDCUP PO SCH ×3 (08:43→20:38)
[2016-07-23] MEDS: MULTIVITAMIN (CENTRUM) TABLET PO SCH (08:43)
[2016-07-23] MEDS: PANTOPRAZOLE 40 MG VIAL IV SCH (08:44)
[2016-07-23] MEDS: BENZTROPINE 1 MG TABLET PO SCH ×2 (08:44→20:38)
--- NOTE | 2016-07-23 09:22 | Pulmonology Progress Note ---
Pulmonary - PN: Subj Interval history: This is a 66-year-old black male whom I saw in pulmonary consultation on 2016. This is a [facility] patient who was brought to the emergency room by EMS. He had had an episode of emesis of dark coffee ground material and this was followed by respiratory distress and it was thought that he had aspirated. He said that initially he can sit up and speak. Patient previously been at the [facility] but this is both at bedside in the emergency room by his family. He required intubation. His chest x-ray showed evidence of aspiration with bilateral infiltrates. Patient was hypotensive and he required pressor agents. See his admit note for additional details. My impressions were #1: Acute bilateral infiltrates most likely compatible with aspiration pneumonia but consider a bacterial superinfection #2: Hematemesis #3: Chronic renal failure #4: Diabetes mellitus #5: Schizophrenia #6: Anemia; probably secondary to iron deficiency #7: Hyperammonemia #8: Acute respiratory distress secondary to #1 and/or #2 requiring intubation mechanical ventilation #9: See past history 07/20/2016. Fiberoptic bronchoscopy was delayed until this morning because of the patient's other problems and what appeared to be instability. His chest x- ray shows dense infiltrates in the right upper and right lower lung. Infiltrates in the left lung are good bit better on bronchoscopy he had a tremendous amount of retained gastric contents. This was removed with lavage and all 5 lobes of the lung. Specimens were sent for bacterial and fungal studies. He had some mild erosive bronchitis but there was no's stenosis related to this. He tolerated procedure well. The patient is on a weaning protocol and physical therapy protocol. This morning's ABGs on mechanical ventilation with an FiO2 of 100% showed a pH 7.349, PCO2 of 33, PO2 of 313 a bicarb of 19. FiO2 has been decreased. His admit creatinine was 1.9 with a BUN of 40 and his electrolytes were normal. White count was 9900. It appears in no labs been ordered for today so I have taken the liberty of ordering additional lab. Patient's on vancomycin, Zosyn, Solu-Medrol 40 IV push every 8 hours sliding scale insulin. Proton pump inhibitors. Deep venous thrombophlebitis prevention protocol. 07/23/2016. This patient had a knee scope on 07/20/2016. This was done by Dr. Jasbir Landis. This was a LA class D erosive esophagitis 5 cm in the setting of gastroparesis and he thought it was likely responsible for the patient's aspiration mixed in with blood. He noted a diffuse gastritis and he started patient on Reglan. This morning on physical exam the patient has a very large tongue and a very large lips. These do not have the absolute amount of edema that I often see with angioedema but I have to wonder if this point we are dealing with here. The main new medicine is Reglan so that would be a candidate. Patient's on stage V with weaning protocol. On chest x-ray heart size is normal. There is some increased interstitial markings in the medial right upper lung and in the medial right lower lung. Endotracheal tube is in good position peer I do not see any congestive heart failure. All bronchoscopy specimens from 07/20/2016 are negative. Labs been reviewed. Medicines been reviewed. Doppler venograms. 07/19/2016. No evidence of deep venous thrombophlebitis. CT of the head. 07/19/2016. No acute changes Ultrasound of the abdomen. 07/19/2016. Small infiltrate. Limited study. No other abnormalities noted Echocardiogram. 07/19/2016. Ejection fraction about 5055% with +1 diastolic dysfunction and right ventricular pressures of 29 mm of Physical exam. Vital signs. See below Neurologic. Patient can be slightly aroused and he appears to have none purposeful movements of all 4 extremities. . Face is symmetrical. Lips and tongue appear to be normal Neck. Symmetrical. No meningismus Lymphatics. No submandibular cervical supraclavicular or epitrochlear adenopathy. Chest. Coarse large airway congestion bilaterally. Bibasal inspiratory squeaks. Heart. No gallop Abdomen. Rare bowel sounds Lower extremities. No obvious deep venous thrombophlebitis The remainder the physical exam is noncontributory. Plan: #1: 07/19/2016. Agree with present antibiotics. We will start the physical therapy protocol and ventilator management weaning protocol. #2: 07/19/2016. Check Doppler venograms to rule out deep venous thrombophlebitis. Note, the patient has [facility]ace [facility]. Venograms were negative for deep venous thrombophlebitis #3: 07/20/2016. Fiberoptic bronchoscopy. See report #4: Check sputum for Gram stain, culture and sensitivity. Check bronchoscopy specimens. #5: Check cold agglutinins and Legionella #6: Check BNP, TSH, and free T4 7. 07/23/2016. Tongue and lips appear to be much larger than before. Have to wonder about angioedema. Theresa would be a candidate. Also note this patient carries a diagnosis of tardive dyskinesia. #7: See orders 8. See my note 07/20/2016. Daily chest x-ray ABGs and lab. I have ordered labs for today. Exam (Progress Note) - Constitutional Vitals: Period Temp Pulse Resp BP Sys/Loo Pulse Ox Last 24 Hr 97.7 F-99.1 F 71-86 5-25 131-172/65-117 98-100 Results - Labs CBC & BMP: 07/23/16 05:34 07/23/16 05:34
--- NOTE | 2016-07-23 11:26 | Pathology Report from [facility] ---
ACCESSION # : [id number] PATIENT NAME : Jaclyn Burgess ORDERING DR : Brice Zabala MD CLINICAL HX: GI Bleed POST-OP DX: #1 FLORENTINO #2 Esophageal biopsy SPECIMEN INFO: #1 FLORENTINO #2 Distal esophageal biopsy GROSS DESCRIPTION: #1 Received in formalin labeled with the patient's name "JACLYN BURGESS and #1" consists of a 0.9 x 0.2 cm aggregate of abdi tissue. Submitted in cassette #1.#2 Received in formalin labeled with the patient's name "JACLYN BURGESS and #2" consists of a 1.0 x 0.3 cm aggregate of abdi tissue. Submitted in cassette #2. DIAGNOSIS FOR JACLYN BURGESS: #1 GASTRIC BIOPSIES: Chronic superficial gastritis, active, with focal erosion. H.pylori not seen on special stain.#2 ESOPHAGEAL BIOPSIES: Reflux esophagitis. SERVICE DATE: 07/20/2016 REPORT DATE: 07/23/2016 PATHOLOGIST: Ander Mendoza M.D. MTDLori
--- NOTE | 2016-07-23 13:03 | Hospitalist Progress Note ---
Assessment and Plan (1) Acute respiratory failure Status: Acute Assessment and plan: Right lower lobe pneumonia improving. [facility] cultures negative. White count improving. Continue to attempts to wean from vent. New development of angioedema suspected. Continue Zosyn. We will stop vancomycin. Current Visit: Yes (2) Angioedema Status: Acute Assessment and plan: Dr. Lee will examine. We will start Pepcid IV and Solu-Medrol. Have stopped Reglan. Decreased dose of Geodon even though chronic med Current Visit: Yes (3) Acute blood loss anemia Status: Acute Assessment and plan: Status post 2 units of packed red blood cells. Hemoglobin stable at 9.2. Status post EGD on 5 5 showed class D erosive esophagitis. No active bleeding found. Current Visit: Yes (4) Leukocytosis Status: Acute Assessment and plan: Most likely due to aspiration pneumonia. All cultures negative. Current Visit: Yes (5) Chronic renal failure, stage 3 (moderate) Status: Acute Assessment and plan: Hep-Lock IV fluids. Current Visit: Yes (6) Diabetes mellitus Status: Chronic Assessment and plan: Elevated glucose which will worsen due to increasing steroids due to angioedema. We will give Lantus 20 units. Current Visit: Yes Qualifiers: Diabetes mellitus type: type 2 (7) Hypertension Status: Chronic Assessment and plan: Will change from metoprolol to Coreg. Current Visit: Yes (8) Aspiration into airway Status: Acute Assessment and plan: Status post bronchoscopy, bronched cultures are negative, continue Zosyn. Current Visit: Yes Hospitalist: Subjective Interval history: Spoke with Dr. Francis to this morning patient's tongue was not enlarged and his lips were not swollen on Saturday. Pharmacy and I have reviewed his list of medications and stopped his Reglan. Patient is also on Zosyn but it angioedema is not listed as a complication. Discussed with Dr. Lee and he will come and examined the base of his tongue and cords to see if it also looks swollen. Exam - Constitutional Vitals: Period Temp Pulse Resp BP Sys/Loo Pulse Ox Last 24 Hr 97.7 F-99.1 F 71-86 5-25 131-175/65-102 98-100 Exam: Heart Rate-[RRR] Lungs-[CTAB] GI-[+bs soft, NT] Neuro sedated and intubated psych cannot assess due to sedation and intubation General [no acute distress] Oral swelling of the lips and tongue Results - Labs CBC & BMP: 07/23/16 05:34 07/23/16 05:34 Lab Results: I have reviewed the past 24 hour labs Labs: Blood cultures 2 are negative no growth, urine culture negative no growth, bronc culture negative no growth. - Diagnostic Findings Procedure: Chest x-ray: report reviewed by me (Tube in good position, right lower lobe pneumonia resolving still right pleural effusion present)
[2016-07-23] MEDS: FAMOTIDINE 20 MG/2 ML VIAL IV SCH (13:56)
[2016-07-23] MEDS: methylPREDNISolone SOD SUC 125 MG/2 ML VIAL IV SCH ×2 (14:00→20:38)
[2016-07-23] MEDS: INSULIN GLARGINE 100 UNIT/ML SUBCUT SCH (14:00)
[2016-07-23] MEDS: LANSOPRAZOLE ODT 30 MG TABLET PO SCH ×2 (14:11→20:38)
[2016-07-23] MEDS: DOXAZOSIN 4 MG TABLET PO SCH (17:01)
[2016-07-23] MEDS: CARVEDILOL 6.25 MG TABLET PO SCH ×2 (17:49→20:38)
--- NOTE | 2016-07-23 18:20 | Consultation ---
Assessment and Plan - Time spent with patient Time spent with patient: Greater than 30 minutes (1) Angioedema Status: Acute Assessment and plan: Physical exam findings are consistent with angioedema that by chart review would be consistent potentially with an idiopathic angioedema. I agree with discontinued medicines that may have caused but unlikely to have caused the angioedema. Additionally I will check his TSH and free T4 to determine whether or not there has been any thyroid suppression that may worsen or cause this secondary to his long-term Geodon usage especially since his history also shows episodes of tardive dyskinesia. In this point I do not think that we need to check for hereditary forms of angioedema. Because of his multiple medical comorbidities and distress that will come with this this is likely an idiopathic angioedema. Additionally I will begin to monitor this patient laryngoscopic like to offer recommendations when he may be a candidate for extubation. Thank you very much for this consult I will continue to follow this patient intermittently throughout his stay. Current Visit: Yes Qualifiers: Encounter type: initial encounter Qualified Code(s): T78.3XXA - Angioneurotic edema, initial encounter (2) Facial edema Status: Acute Current Visit: Yes History of Present Illness - Data of Consult Patient: new to practice Consult date: 07/23/16 Requesting Physician: Jacqueline Castellon - Consult Narrative Reason for consult: Angioedema History of present illness: Mr. Marques is a 66 year old male who was undergoing treatment for multiple medical comorbidities and unfortunately was intubated when he developed angioedema noted by tongue swelling and facial edema. Subsequently known causes for angioedema have been discontinued but ENT was consulted to evaluate for future extubation and additionally other possible causes for his angioedema or 2 determine if this is an instance of idiopathic angioedema. CC: Jacqueline Castellon MD - Home Medications and Allergies Home Medications: Home Medications Medication Instructions Recorded Confirmed Type Atorvastatin [Lipitor] 40 mg PO BEDTIME 10/12/15 07/19/16 History Doxazosin Mesylate [Cardura] 8 mg PO PC SUPPER 10/12/15 07/19/16 History Insulin Detemir [Levemir] 36 unit SUBCUT 1700 10/12/15 07/19/16 History Sitagliptin Phosphate [Januvia] 100 mg PO DAILY 10/12/15 07/19/16 History Ferrous Sulfate Tab [Feosol 325 mg PO TID tablet 10/21/15 07/19/16 Rx Original Tab] Metoprolol Succinate Xl [Toprol Xl] 12.5 mg PO BID tablet 10/21/15 07/19/16 Rx Allopurinol 100 mg PO DAILY 12/01/15 07/19/16 History Benztropine Tab [Cogentin Tab] 1 mg PO BID 12/01/15 07/19/16 History Cholecalciferol (Vitamin D3) 2,000 unit PO DAILY 12/01/15 07/19/16 History [Vitamin D3] Cilostazol 25 mg PO BID 12/01/15 07/19/16 History Gabapentin Cap/Tab [Neurontin 300 mg PO TID 12/01/15 07/19/16 History Cap/Tab] Hydrocodone/Acetaminophen 1 each PO BID 12/01/15 07/19/16 History [Hydrocodon-Acetaminophen 5-325] Multivitamin [Multivitamins] 1 each PO DAILY 12/01/15 07/19/16 History Trazodone HCl 50 mg PO BEDTIME 12/01/15 07/19/16 History clonazePAM [Clonazepam] 0.5 mg PO BEDTIME 12/01/15 07/19/16 History hydroCHLOROthiazide 25 mg PO DAILY 12/01/15 07/19/16 History [Hydrochlorothiazide] Acetaminophen Tab [Tylenol Tab] 650 mg PO Q8H PRN 04/03/16 07/19/16 History Aspirin EC Tab 81 mg PO DAILY 04/03/16 07/19/16 History Polyethylene Glycol 3350 17 gm PO DAILY 04/03/16 07/19/16 History Ziprasidone HCl [Geodon] 80 mg PO BID 04/03/16 07/19/16 History Docusate Sodium [Colace] 100 mg PO BID 07/19/16 07/19/16 History Glimepiride [Amaryl] 1 mg PO DAILY 07/19/16 07/19/16 History Lactulose 10 gm PO DAILY 07/19/16 07/19/16 History Megestrol Acetate [Megace] 400 mg PO DAILY 07/19/16 07/19/16 History Allergies/Adverse Reactions: Allergies Allergy/AdvReac Type Severity Reaction Status Date / Time No Known Allergies Allergy Verified 07/19/16 13:56 ROS unobtainable: due to endotracheal tube Medical,Surgical,& Family Hx - Medical History Cardio: History of: CAD (There is mention of this in the old chart, but it is unclear), Hypertension, Cardiovascular Problems No history of: Cardiac Dysrhythmia Psychological: History of: Schizophrenia Neurology: History of: Neurological Problems (Schizophrenia) No history of: Seizures HEENT: History of: Glaucoma Endocrine: History of: Diabetes Mellitus (IDDM), Diabetes Mellitus (NIDDM), Dyslipidemia Rheumatology: History of;: Gout, Rheumatoid Arthritis Respiratory: History of: Pneumonia (x 2 last time was in 2016) Genitourinary: History of: Prostate Problems, Problems (elevated kidney levels seeing a renal md per family, dr. jackson.) Gastrointestinal: History of: Gastrointestinal Bleed, Hemorrhoids Musculoskeletal: History of: Musculoskeletal Problems (Muscle atrophy, Bed ridden) Hematology: History of: Anemia - Surgical History Cardiac Surgeries: Sugical HX of: Cardiac Catheterization, Cardiac Surgery (CABG ) HEENT Surgeries: Surgical HX of: Eye Surgery (cataracts) - Family History Family History: Reports;: Family Diabetes - Social History Smoking Status: Unknown if ever smoked Frequency of Alcohol Use: None Type of Drug Use: None Exam - Constitutional Vitals: Period Temp Pulse Resp BP Sys/Loo Pulse Ox Last 24 Hr 97.7 F-101.9 F 71-89 5-30 131-193/65-102 98-100 General appearance: over weight, other (Sedated) - Head Head exam: Present: other (Facial edema consistent with angioedema) - ENT ENT exam: Present: normal exam, normal external ear exam, other (Anterior two thirds of the tongue edema consistent with angioedema subjectively: This mild possibly moderate oral pharyngeal edema and swelling along the floor of mouth swelling is moderate as well along with his facial edema being mild to moderate. ) - Neck Neck exam: Present: normal inspection - Respiratory Respiratory exam: Present: other (Sedated on the ventilator) - Cardiovascular Cardiovascular exam: Present: regular rate and rhythm - GI/Abdominal GI/Abdominal exam: Present: soft - Extremities Exam Extremities exam: Present: normal inspection - Neurological Exam Neurological exam: Present: other (Sedated on the ventilator) - Psychiatric Psychiatric exam: Present: other (Unable to examine because he is sedated on the ventilator) - Skin Skin exam: Present: normal color, warm, other (See above description of facial edema consistent with angioedema) Results - Labs CBC & BMP: 07/23/16 05:34 07/23/16 05:34 Lab Results: I have reviewed the past 24 hour labs
[2016-07-23 18:55] LABS: Free T4 (Free Thyroxine) 1.21 NG/DL (0.76-1.46); Thyroid Stimulating Hormone 1.65 uIU/ml (0.358-3.74)
[2016-07-23] MEDS: ATORVASTATIN 40 MG TABLET PO SCH (20:38)
[2016-07-24] MEDS: FAMOTIDINE 20 MG/2 ML VIAL IV SCH ×2 (00:38→12:18)
[2016-07-24] MEDS: INSULIN LISPRO 100 UNIT/ML SUBCUT SCH ×5 (00:38→23:55)
[2016-07-24] MEDS: ALBUTEROL/IPRATROPIUM 3 ML NEB RESP TX SCH ×6 (02:32→23:08)
[2016-07-24 03:59] LABS: Allen Test Positive; Pt O2 Delivery Device Ventilator
[2016-07-24 04:00] LABS: ABG HCO3 20.4 MMOL/L (20-26); ABG Oxygen Saturation 98.7 % (95-100); ABG PCO2 30.9 MM HG (35-48); ABG PH 7.438 (7.35-7.45); ABG TCO2 21.4 MMOL/L (23-27)
[2016-07-24] MEDS: PIPERACILLIN/TAZOBACTAM 3,375 MG in SODIUM CHLORIDE 0.9% 100 ML IV SCH ×3 (05:46→22:41)
[2016-07-24] MEDS: methylPREDNISolone SOD SUC 125 MG/2 ML VIAL IV SCH ×3 (05:46→20:11)
[2016-07-24] MEDS: hydrALAZINE 20 MG/1 ML VIAL IV PRN ×2 (05:47→14:56)
[2016-07-24 05:51] LABS: Basophils % 0.1 % (0.0-0.8); Hemoglobin 9.3 GM/DL (14.0-18.0); Immature Granulocytes % 1.2 %; Immature Granulocytes Absolute 0.11 #; Lymphocytes % 11.1 % (21.2-54.2); Mean Corpuscular HGB Conc 32.1 GM/DL (32-36); Mean Corpuscular Hemoglobin 26 PG (27-34); Mean Corpuscular Volume 80.1 FL (87-102); Monocytes # 1.2 10*3/uL (0.11-0.8); Monocytes % 12.7 % (1.7-12.7); NRBC # 0.03 10*3/uL; Neutrophils # 6.9 10*3/uL (1.4-7.4); Neutrophils % 74.9 % (38.7-73.9); Platelet Count 170 T/CUMM (130-400); Red Blood Count 3.62 MC/CUMM (3.8-5.5); Red Cell Distribution Width 17.4 % (9.3-17.3); White Blood Count 9.3 T/CUMM (4-12)
[2016-07-24 06:18] LABS: Calcium 8.1 MG/DL (8.5-10.1); Magnesium 2.5 MG/DL (1.8-2.4); Potassium 4.5 MMOL/L (3.5-5.1)
[2016-07-24 06:23] LABS: Phosphorous 3.4 MG/DL (2.5-4.9); Prealbumin 19.4 MG/DL (20-40)
[2016-07-24] MEDS: PROPOFOL 1,000 MG/100 ML BOTTLE IV SCH ×3 (07:15→16:51)
--- NOTE | 2016-07-24 07:35 | XRay Report ---
XR chest 1V portable Indication: Ventilator Comparison: Chest x-ray dated July 23, 2016 Technique: Single frontal view of the chest Findings: Cardiomediastinal silhouette is stable in configuration status post sternotomy. Endotracheal tube stable in positioning. Interval increased bibasilar atelectasis/consolidation. Osseous and surrounding soft tissue structures appear grossly unchanged. IMPRESSION: Interval increased bibasilar atelectasis/consolidation. PROCEDURE INTERPRETED AT [facility] DEPARTMENT OF RADIOLOGY Final Report Signed by: Dr Kush Otero
[2016-07-24] MEDS ORDERED: ZIPRASIDONE 20 MG CAPSULE PO SCH (09:00)
[2016-07-24] MEDS: LACTULOSE 20 GM/30 ML UDCUP PO SCH ×3 (09:20→20:00)
[2016-07-24] MEDS: POLYETHYLENE GLYCOL POWDER 17 GM PACK PO SCH (09:20)
[2016-07-24] MEDS: DOCUSATE SODIUM 100 MG CAPSULE PO SCH ×2 (09:21→20:02)
[2016-07-24] MEDS: CARVEDILOL 6.25 MG TABLET PO SCH ×2 (09:21→20:02)
[2016-07-24] MEDS: MULTIVITAMIN (CENTRUM) TABLET PO SCH (09:21)
[2016-07-24] MEDS: LANSOPRAZOLE ODT 30 MG TABLET PO SCH ×2 (09:21→20:00)
[2016-07-24] MEDS: CHOLECALCIFEROL 1,000 UNIT TABLET PO SCH (09:21)
[2016-07-24] MEDS: INSULIN GLARGINE 100 UNIT/ML SUBCUT SCH (09:22)
[2016-07-24] MEDS: MUPIROCIN 2% OINT 22 GM TUBE TOP SCH ×2 (09:36→20:02)
[2016-07-24] MEDS: BENZTROPINE 1 MG TABLET PO SCH ×2 (09:36→20:01)
[2016-07-24] MEDS ORDERED: ONDANSETRON 4 MG/2 ML VIAL IV PRN (09:50)
[2016-07-24] MEDS ORDERED: ONDANSETRON 4 MG/2 ML VIAL ONE (09:53)
--- NOTE | 2016-07-24 09:58 | Hospitalist Progress Note ---
Assessment and Plan (1) Acute respiratory failure Status: Acute Assessment and plan: Will bring [facility] in a.m. by Dr. Francis and then hopefully extubate. Continue Zosyn Current Visit: Yes (2) Angioedema Status: Acute Assessment and plan: Dr. Lee has examined him and agrees with angioedema. He feels it is idiopathic. TSH and free T4 normal. Current Visit: Yes Qualifiers: Encounter type: initial encounter Qualified Code(s): T78.3XXA - Angioneurotic edema, initial encounter (3) Acute blood loss anemia Status: Acute Assessment and plan: S/P 2 units of packed red blood cells. Hemoglobin stable at 9.3. Status post EGD on 5 5 showed class D erosive esophagitis. Current Visit: Yes (4) Leukocytosis Status: Acute Assessment and plan: resolved Current Visit: Yes (5) Chronic renal failure, stage 3 (moderate) Status: Acute Assessment and plan: Hep-Lock IV fluids. Current Visit: Yes (6) Diabetes mellitus Status: Chronic Assessment and plan: cont lantus 20 units Current Visit: Yes Qualifiers: Diabetes mellitus type: type 2 (7) Hypertension Status: Chronic Assessment and plan: cont Coreg. Current Visit: Yes (8) Aspiration into airway Status: Acute Assessment and plan: repeat bronch in am Current Visit: Yes Hospitalist: Subjective Interval history: Mr. Hanna swelling of his tongue and lower lip look much better today. Dr. roper looked at him for me yesterday. I spoke with Dr. Francis today and he plans to [facility] him tomorrow with possible extubation after [facility]. Patient was following all my commands today. Looks so much better. The only thing that I changed was I stopped his Reglan and decrease his Geodon. Patient reported that his stomach hurt today. Exam - Constitutional Vitals: Period Temp Pulse Resp BP Sys/Loo Pulse Ox Last 24 Hr 98.8 F-101.9 F 66-89 9-30 129-193/67-102 99-100 Exam: Heart Rate-[RRR] Lungs-[CTAB] GI-[+bs soft, NT] Neuro alert and oriented 1, moving all extremities to command psych normal mood and affect General [no acute distress] Oral swelling of the lips and tongue improved significantly Results - Labs CBC & BMP: 07/24/16 04:35 07/24/16 04:35 Lab Results: I have reviewed the past 24 hour labs
--- NOTE | 2016-07-24 10:17 | XRay Report ---
Exam: XR KUB Date: 07/24/2016 9:51 AM Comparison: None Indication: Abdominal discomfort Technique:[Supine abdomen] Findings: Mild gaseous distention of bowel with increased fecal material. Nasogastric tube in stomach with prior median sternotomy. Degenerative changes are noted. Impression: Mild gaseous distention of bowel which could be related to ileus, increasing material, etc. Significant increased fecal material consistent with constipation. Nasogastric tube in the stomach. PROCEDURE INTERPRETED AT [facility] DEPARTMENT OF RADIOLOGY Final Report Signed by: Dr. Winter Carver
--- NOTE | 2016-07-24 10:33 | Pulmonology Progress Note ---
Pulmonary - PN: Subj Interval history: This is a 66-year-old black male whom I saw in pulmonary consultation on 2016. This is a longterm patient who was brought to the emergency room by EMS. He had had an episode of emesis of dark coffee ground material and this was followed by respiratory distress and it was thought that he had aspirated. He said that initially he can sit up and speak. Patient previously been at the DNR but this is both at bedside in the emergency room by his family. He required intubation. His chest x-ray showed evidence of aspiration with bilateral infiltrates. Patient was hypotensive and he required pressor agents. See his admit note for additional details. My impressions were #1: Acute bilateral infiltrates most likely compatible with aspiration pneumonia but consider a bacterial superinfection #2: Hematemesis #3: Chronic renal failure #4: Diabetes mellitus #5: Schizophrenia #6: Anemia; probably secondary to iron deficiency #7: Hyperammonemia #8: Acute respiratory distress secondary to #1 and/or #2 requiring intubation mechanical ventilation #9: See past history 07/20/2016. Fiberoptic bronchoscopy was delayed until this morning because of the patient's other problems and what appeared to be instability. His chest x- ray shows dense infiltrates in the right upper and right lower lung. Infiltrates in the left lung are good bit better on bronchoscopy he had a tremendous amount of retained gastric contents. This was removed with lavage and all 5 lobes of the lung. Specimens were sent for bacterial and fungal studies. He had some mild erosive bronchitis but there was no's stenosis related to this. He tolerated procedure well. The patient is on a weaning protocol and physical therapy protocol. This morning's ABGs on mechanical ventilation with an FiO2 of 100% showed a pH 7.349, PCO2 of 33, PO2 of 313 a bicarb of 19. FiO2 has been decreased. His admit creatinine was 1.9 with a BUN of 40 and his electrolytes were normal. White count was 9900. It appears in no labs been ordered for today so I have taken the liberty of ordering additional lab. Patient's on vancomycin, Zosyn, Solu-Medrol 40 IV push every 8 hours sliding scale insulin. Proton pump inhibitors. Deep venous thrombophlebitis prevention protocol. 07/23/2016. This patient had a knee scope on 07/20/2016. This was done by Dr. Jasbir Landis. This was a LA class D erosive esophagitis 5 cm in the setting of gastroparesis and he thought it was likely responsible for the patient's aspiration mixed in with blood. He noted a diffuse gastritis and he started patient on Reglan. This morning on physical exam the patient has a very large tongue and a very large lips. These do not have the absolute amount of edema that I often see with angioedema but I have to wonder if this point we are dealing with here. The main new medicine is Reglan so that would be a candidate. Patient's on stage V with weaning protocol. On chest x-ray heart size is normal. There is some increased interstitial markings in the medial right upper lung and in the medial right lower lung. Endotracheal tube is in good position peer I do not see any congestive heart failure. All bronchoscopy specimens from 07/20/2016 are negative. 07/24/2016 this patient continues to slowly improve from a pulmonary standpoint. He remains on all available protocols. Today's chest x-ray shows some bibasilar atelectasis. In light of the patient's recent history of aspiration already evaluated with fiberoptic bronchoscopy. He is between stage V and stage of the weaning protocol at the present time. There are no new positive cultures. ABGs on mechanical ventilation FiO2 40% shows a pH 7.44, PCO2 31, PO2 1 662 and a bicarb of 20. Electrolytes are normal. Creatinine is 1.50 with a BUN of 48. White count is 9300 with 75 segs 11 lymphs and 13 monocytes. H&H stable at 9.3/29.0. Labs been reviewed. Medicines been reviewed. Doppler venograms. 07/19/2016. No evidence of deep venous thrombophlebitis. CT of the head. 07/19/2016. No acute changes Ultrasound of the abdomen. 07/19/2016. Small infiltrate. Limited study. No other abnormalities noted Echocardiogram. 07/19/2016. Ejection fraction about 5055% with +1 diastolic dysfunction and right ventricular pressures of 29 mm of Physical exam. Vital signs. See below Neurologic. Patient can be slightly aroused and he appears to have none purposeful movements of all 4 extremities. . Face is symmetrical. Lips and tongue appear to be normal Neck. Symmetrical. No meningismus Lymphatics. No submandibular cervical supraclavicular or epitrochlear adenopathy. Chest. Coarse large airway congestion bilaterally. Bibasal inspiratory squeaks. Heart. No gallop Abdomen. Rare bowel sounds Lower extremities. No obvious deep venous thrombophlebitis The remainder the physical exam is noncontributory. Plan: #1: 07/19/2016. Agree with present antibiotics. We will start the physical therapy protocol and ventilator management weaning protocol. #2: 07/19/2016. Check Doppler venograms to rule out deep venous thrombophlebitis. Note, the patient has been on Megace while at the longterm. Venograms were negative for deep venous thrombophlebitis #3: 07/20/2016. Fiberoptic bronchoscopy. See report #4: Check sputum for Gram stain, culture and sensitivity. Check bronchoscopy specimens. #5: Check cold agglutinins and Legionella #6: Check BNP, TSH, and free T4 7. 07/23/2016. Tongue and lips appear to be much larger than before. Have to wonder about angioedema. Theresa would be a candidate. Also note this patient carries a diagnosis of tardive dyskinesia. #7: See orders 8. See my note 07/20/2016. Daily chest x-ray ABGs and lab. I have ordered labs for today. 9. See my note 07/24/2016. Fiberoptic bronchoscopy 07/25/2016. Advance weaning protocol. Continue physical therapy protocol Exam (Progress Note) - Constitutional Vitals: Period Temp Pulse Resp BP Sys/Loo Pulse Ox Last 24 Hr 98.8 F-101.9 F 66-89 9-30 129-193/67-102 99-100 Results - Labs CBC & BMP: 07/24/16 04:35 07/24/16 04:35
--- NOTE | 2016-07-24 12:49 | Progress Note ---
Assessment and Plan - Time spent with patient Time spent with patient: Less than 30 minutes (1) Angioedema Status: Acute Assessment and plan: Physical exam findings are consistent with angioedema that by chart review would be consistent potentially with an idiopathic angioedema. I agree with discontinued medicines that may have caused but unlikely to have caused the angioedema. Additionally I will check his TSH and free T4 to determine whether or not there has been any thyroid suppression that may worsen or cause this secondary to his long-term Geodon usage especially since his history also shows episodes of tardive dyskinesia. In this point I do not think that we need to check for hereditary forms of angioedema. Because of his multiple medical comorbidities and distress that will come with this this is likely an idiopathic angioedema. Additionally I will begin to monitor this patient laryngoscopic like to offer recommendations when he may be a candidate for extubation. Thank you very much for this consult I will continue to follow this patient intermittently throughout his stay. 07/24/2016 Bedside laryngoscopy reveals moderate edema of the supraglottis and larynx. I imagine that this will be resolved potentially by tomorrow I plan on rescoping him sometime in the morning tomorrow to see if he would be potentially a candidate for extubation. Currently I would not necessarily recommend extubation as with the amount of supraglottic and laryngeal edema he would be difficult to reintubate I feel and would have an increased chance of respiratory distress after extubation. I will continue to follow this patient Current Visit: Yes Qualifiers: Encounter type: initial encounter Qualified Code(s): T78.3XXA - Angioneurotic edema, initial encounter (2) Facial edema Status: Acute Current Visit: Yes Family Medicine PN Sub Interval history: Bedside laryngoscopy performed today on Mr. Marques who had developed most probably idiopathic angioedema secondary to multiple medical comorbidities. No changes from nursing standpoint he is tolerating CPAP but evaluation currently. Exam (Progress Note) - Constitutional Vitals: Period Temp Pulse Resp BP Sys/Loo Pulse Ox Last 24 Hr 98.1 F-101.9 F 66-89 14-30 129-193/65-102 98-100 General appearance: over weight, other (Sedated on CPAP and tolerating this well ) - Head Head exam: Present: normal inspection, normocephalic - ENT ENT exam: Present: normal exam, normal external ear exam, other (Continued anterior tongue edema but this is very minimal though he does protrude his tongue floor of mouth edema clinically is mild to completely resolved bedside laryngoscopy was performed revealing no tongue base edema and visualization of the tip of the epiglottis but otherwise moderate supraglottic edema with no visualization of the false cords or true vocal folds.) - Neck Neck exam: Present: normal inspection - Respiratory Respiratory exam: Present: other (Currently intubated on the ventilator) - Extremities Exam Extremities exam: Present: normal inspection - Neurological Exam Neurological exam: Present: other (Unable to assess secondary to being on the ventilator and sedated) - Psychiatric Psychiatric exam: Present: other (Unable to assess secondary to being on the ventilator and sedated) - Skin Skin exam: Present: normal color, warm Results - Labs CBC & BMP: 07/24/16 04:35 07/24/16 04:35 Lab Results: I have reviewed the past 24 hour labs (Awaiting the TSH and free T4 labs are was documenting that they were normal but I cannot find them on the chart at this point we will continue to look for them.)
[2016-07-24] MEDS: DOXAZOSIN 4 MG TABLET PO SCH (15:30)
[2016-07-24] MEDS: ATORVASTATIN 40 MG TABLET PO SCH (20:02)
[2016-07-25] MEDS: hydrALAZINE 20 MG/1 ML VIAL IV PRN ×2 (00:32→08:28)
[2016-07-25] MEDS: PROPOFOL 1,000 MG/100 ML BOTTLE IV SCH ×3 (02:02→11:51)
[2016-07-25] MEDS: ALBUTEROL/IPRATROPIUM 3 ML NEB RESP TX SCH ×4 (03:13→15:15)
[2016-07-25 03:23] LABS: ABG Base Excess -0.6 MMOL/L (-2.5-2.5); ABG Oxygen Saturation 99.6 % (95-100); ABG PCO2 28.7 MM HG (35-48); ABG PH 7.491 (7.35-7.45); Allen Test Positive; Pt O2 Delivery Device Ventilator
[2016-07-25 04:40] LABS: Basophils % 0.1 % (0.0-0.8); Hematocrit 30.3 VOL% (42.0-52.0); Hemoglobin 9.9 GM/DL (14.0-18.0); Immature Granulocytes % 1.2 %; Immature Granulocytes Absolute 0.11 #; Lymphocytes # 1.2 10*3/uL (1.4-4.0); Lymphocytes % 13.5 % (21.2-54.2); Mean Corpuscular HGB Conc 32.7 GM/DL (32-36); Mean Corpuscular Hemoglobin 26 PG (27-34); Mean Corpuscular Volume 79.3 FL (87-102); Monocytes # 1.1 10*3/uL (0.11-0.8); Monocytes % 11.7 % (1.7-12.7); Neutrophils # 6.7 10*3/uL (1.4-7.4); Neutrophils % 73.5 % (38.7-73.9); Platelet Count 180 T/CUMM (130-400); Red Blood Count 3.82 MC/CUMM (3.8-5.5); White Blood Count 9.2 T/CUMM (4-12)
[2016-07-25 04:51] LABS: PT Patient Result 10.9 SECS; Partial Thromboplastin Time 27.3 SECS (0-40)
[2016-07-25 05:11] LABS: Calcium 8.4 MG/DL (8.5-10.1); Magnesium 2.4 MG/DL (1.8-2.4); Osmolality,Calculated 301.1 MOS/KG (273-304); Potassium 4.6 MMOL/L (3.5-5.1)
[2016-07-25] MEDS: INSULIN LISPRO 100 UNIT/ML SUBCUT SCH ×2 (05:58→12:38)
[2016-07-25] MEDS: methylPREDNISolone SOD SUC 125 MG/2 ML VIAL IV SCH (05:58)
[2016-07-25] MEDS: PIPERACILLIN/TAZOBACTAM 3,375 MG in SODIUM CHLORIDE 0.9% 100 ML IV SCH (06:00)
--- NOTE | 2016-07-25 07:08 | XRay Report ---
XR chest 1V portable Indication: Vent Comparison: Chest x-ray dated July 24, 2016 at 3:01 AM Technique: Single frontal view of the chest Findings: Cardiomediastinal silhouette is stable configuration status post sternotomy. Endotracheal tube appears grossly unchanged. Continued bibasilar atelectasis/consolidation which may be minimally improved on the right. Osseous and surrounding soft tissue structures appear grossly unchanged. IMPRESSION: As above. PROCEDURE INTERPRETED AT [facility] DEPARTMENT OF RADIOLOGY Final Report Signed by: Dr Kush Otero
--- NOTE | 2016-07-25 10:34 | Event Note ---
In hospital diagnostic and therapeutic fiberoptic bronchoscopy. Right lower lung and left lower lung bronchial/alveolar lavage sent for Gram stain, bacterial culture, fungal stains and culture. This 66-year-old male is on mechanical ventilation. He has bibasilar atelectasis secondary to retained secretions. His cough is ineffective. He has had a previous bronchoscopy and evidence of aspiration was found. He is reevaluated and recultured today for the above reasons. Endotracheal tube is in good position. The distal trachea was normal. The jasmina is sharp. The right mainstem bronchus was full of thick tenacious secretions. There were a few in the right upper lung and right middle lung. There were copious secretions in the right lower lung. Right lower lung was lavaged and suctioned until clear. Airways are collapsible compatible with COPD. No endobronchial lesions to suggest cancer were seen. Left mainstem bronchus was full of thick tenacious secretions. These extended into the left upper lung and very prominently into the left lower lung. These areas were lavaged until clear. Specimens were sent for the studies noted above. There was some minor erosive friable bronchitis in lingula of the left upper lung. Large and small airways showed a moderate amount of collapsibility compatible with a underlying COPD. The patient tolerated procedure well. There were no complications. Impression. 1. Mechanical ventilation 2. Retained secretions 3. Ineffective cough 4. Bibasilar atelectasis 5. Recent aspiration of gastric contents 6. Collapsible large and small airways probably secondary to underlying COPD Plan. 1. Check bronchoscopy specimens 2. Follow-up chest x-ray
--- NOTE | 2016-07-25 10:40 | Pulmonology Progress Note ---
Pulmonary - PN: Subj Interval history: This is a 66-year-old black male whom I saw in pulmonary consultation on 2016. This is a skilled nursing patient who was brought to the emergency room by EMS. He had had an episode of emesis of dark coffee ground material and this was followed by respiratory distress and it was thought that he had aspirated. He said that initially he can sit up and speak. Patient previously been at the DNR but this is both at bedside in the emergency room by his family. He required intubation. His chest x-ray showed evidence of aspiration with bilateral infiltrates. Patient was hypotensive and he required pressor agents. See his admit note for additional details. My impressions were #1: Acute bilateral infiltrates most likely compatible with aspiration pneumonia but consider a bacterial superinfection #2: Hematemesis #3: Chronic renal failure #4: Diabetes mellitus #5: Schizophrenia #6: Anemia; probably secondary to iron deficiency #7: Hyperammonemia #8: Acute respiratory distress secondary to #1 and/or #2 requiring intubation mechanical ventilation #9: See past history 07/20/2016. Fiberoptic bronchoscopy was delayed until this morning because of the patient's other problems and what appeared to be instability. His chest x- ray shows dense infiltrates in the right upper and right lower lung. Infiltrates in the left lung are good bit better on bronchoscopy he had a tremendous amount of retained gastric contents. This was removed with lavage and all 5 lobes of the lung. Specimens were sent for bacterial and fungal studies. He had some mild erosive bronchitis but there was no's stenosis related to this. He tolerated procedure well. The patient is on a weaning protocol and physical therapy protocol. This morning's ABGs on mechanical ventilation with an FiO2 of 100% showed a pH 7.349, PCO2 of 33, PO2 of 313 a bicarb of 19. FiO2 has been decreased. His admit creatinine was 1.9 with a BUN of 40 and his electrolytes were normal. White count was 9900. It appears in no labs been ordered for today so I have taken the liberty of ordering additional lab. Patient's on vancomycin, Zosyn, Solu-Medrol 40 IV push every 8 hours sliding scale insulin. Proton pump inhibitors. Deep venous thrombophlebitis prevention protocol. 07/23/2016. This patient had a knee scope on 07/20/2016. This was done by Dr. Jasbir Landis. This was a [place] class D erosive esophagitis 5 cm in the setting of gastroparesis and he thought it was likely responsible for the patient's aspiration mixed in with blood. He noted a diffuse gastritis and he started patient on Reglan. This morning on physical exam the patient has a very large tongue and a very large lips. These do not have the absolute amount of edema that I often see with angioedema but I have to wonder if this point we are dealing with here. The main new medicine is Reglan so that would be a candidate. Patient's on stage V with weaning protocol. On chest x-ray heart size is normal. There is some increased interstitial markings in the medial right upper lung and in the medial right lower lung. Endotracheal tube is in good position peer I do not see any congestive heart failure. All bronchoscopy specimens from 07/20/2016 are negative. 07/24/2016 this patient continues to slowly improve from a pulmonary standpoint. He remains on all available protocols. Today's chest x-ray shows some bibasilar atelectasis. In light of the patient's recent history of aspiration already evaluated with fiberoptic bronchoscopy. He is between stage V and stage of the weaning protocol at the present time. There are no new positive cultures. ABGs on mechanical ventilation FiO2 40% shows a pH 7.44, PCO2 31, PO2 1 662 and a bicarb of 20. Electrolytes are normal. Creatinine is 1.50 with a BUN of 48. White count is 9300 with 75 segs 11 lymphs and 13 monocytes. H&H stable at 9.3/29.0. 07/25/2016. Today's chest x-ray shows bibasilar atelectasis and an early infiltrate in the right lower lung. Endotracheal tube is in good position. I do not see any evidence of congestive heart failure. Earlier today based on the patient's x-rays and his recent past history and recent bronchoscopy findings he was reevaluated with fiberoptic bronchoscopy. Specimens were sent for bacterial and fungal studies. Endobronchially the aspiration injuries have healed nicely. He still had a good bit of retained secretions. The patient is progressing with CPAP weaning protocol. Today he has some tongue and lower lips are more swollen than before. I have discussed the case with Dr. Felix roper. The present time the patient should not be extubated. Also see Dr. austin endoscopic findings. Patient's angioedema was thought to be secondary to Reglan. It may be idiopathic. Most of the patient's other medicines are long- term medicines but some had the potential to cause angioedema. ABGs on mechanical ventilation FiO2 40% shows a pH 7.49, PCO2 of 29, PO2 of 152 and a bicarb of 24. Electrolytes are normal. Creatinine is stable at 1.6 with a BUN of 49. White blood cell count has gradually fallen from 22,000 and 9200 with 73.5 613.5 lymphs 11.7 monocytes. H&H is low but stable at 9.9/30.3. INR is 1.0. MRSA has been isolated from the patient's nares. There are no other positive cultures. Clinically he had bibasilar pneumonia and this was probably chemical from aspiration with bacterial superinfection. Bronchoscopy specimens did not grow. Patient was recultured today. Labs been reviewed. Medicines been reviewed. Doppler venograms. 07/19/2016. No evidence of deep venous thrombophlebitis. CT of the head. 07/19/2016. No acute changes Ultrasound of the abdomen. 07/19/2016. Small infiltrate. Limited study. No other abnormalities noted Echocardiogram. 07/19/2016. Ejection fraction about 5055% with +1 diastolic dysfunction and right ventricular pressures of 29 mm of Physical exam. Vital signs. See below Neurologic. Patient can be slightly aroused and he appears to have none purposeful movements of all 4 extremities. . Face is symmetrical. Lips and tongue appear to be normal Neck. Symmetrical. No meningismus Lymphatics. No submandibular cervical supraclavicular or epitrochlear adenopathy. Chest. Coarse large airway congestion bilaterally. Bibasal inspiratory squeaks. Heart. No gallop Abdomen. Rare bowel sounds Lower extremities. No obvious deep venous thrombophlebitis The remainder the physical exam is noncontributory. Plan: #1: 07/19/2016. Agree with present antibiotics. We will start the physical therapy protocol and ventilator management weaning protocol. #2: 07/19/2016. Check Doppler venograms to rule out deep venous thrombophlebitis. Note, the patient has been on Megace while at the skilled nursing. Venograms were negative for deep venous thrombophlebitis #3: 07/20/2016. Fiberoptic bronchoscopy. See report #4: Check sputum for Gram stain, culture and sensitivity. Check bronchoscopy specimens. #5: Check cold agglutinins and Legionella #6: Check BNP, TSH, and free T4 7. 07/23/2016. Tongue and lips appear to be much larger than before. Have to wonder about angioedema. Theresa would be a candidate. Also note this patient carries a diagnosis of tardive dyskinesia. #7: See orders 8. See my note 07/20/2016. Daily chest x-ray ABGs and lab. I have ordered labs for today. 9. See my note 07/24/2016. Fiberoptic bronchoscopy 07/25/2016. Advance weaning protocol. Continue physical therapy protocol 10. See my note 07/25/2016. Fiberoptic bronchoscopy is done 07/25/2016, see report. This patient may be transferred for long-term acute care in the near future. He will be under the care of Dr. Glen Israel. I am agreeable with this. Exam (Progress Note) - Constitutional Vitals: Period Temp Pulse Resp BP Sys/Loo Pulse Ox Last 24 Hr 97.1 F-98.8 F 63-78 12-24 140-173/66-86 97-100 Results - Labs CBC & BMP: 07/25/16 04:07 07/25/16 04:07
[2016-07-25] MEDS: MULTIVITAMIN (CENTRUM) TABLET PO SCH (11:48)
[2016-07-25] MEDS: LACTULOSE 20 GM/30 ML UDCUP PO SCH (11:48)
[2016-07-25] MEDS: DOCUSATE SODIUM 100 MG CAPSULE PO SCH (11:48)
[2016-07-25] MEDS: CARVEDILOL 6.25 MG TABLET PO SCH (11:48)
[2016-07-25] MEDS: BENZTROPINE 1 MG TABLET PO SCH (11:48)
[2016-07-25] MEDS: INSULIN GLARGINE 100 UNIT/ML SUBCUT SCH (11:49)
[2016-07-25] MEDS: POLYETHYLENE GLYCOL POWDER 17 GM PACK PO SCH (11:50)
[2016-07-25] MEDS: CHOLECALCIFEROL 1,000 UNIT TABLET PO SCH (11:50)
[2016-07-25] MEDS: LANSOPRAZOLE ODT 30 MG TABLET PO SCH (11:50)
--- NOTE | 2016-07-25 11:59 | Discharge Summary ---
Hospital Course - Hospital Course Hospital Course: 66-year-old -[place] male he resides at a local snf was admitted for coffee-ground emesis which was aspirated into his lungs. Patient went into acute respiratory failure and was intubated. Chest x-ray shows right middle lobe infiltrates and patient was started on Zosyn and vancomycin. GI was consulted for the upper GI bleed. Hemoglobin on admission was 9.6 and 2 units of packed red blood cells were given. Dr. Zabala from GI was consulted. EGD was performed on July 20, 2016 which showed LA class D erosive esophagitis and patchy gastritis. Biopsies were taken. Patient's anemia stabilized on IV Protonix. Bronchoscopy by Dr. Quintero was performed on July 20, 2016 and all cultures were negative. Blood cultures 2 are negative no growth. Urine culture negative no growth. Patient developed swelling in his tongue and his lower lip. Vancomycin and already been discontinued. Angioedema is rare and Zosyn. Angioedema could be brought on by the Geodon even though he is chronically on Geodon and it can also be caused by Reglan. Reglan was started acutely and it was discontinued. His swelling has improved but Dr. roper from ENT still feels like he has a lot of edema around his cords. Patient had a bronchoscopy again today by Dr. Francis on July 25, 2016 which yielded a lot of secretions. Patient will need time on steroids to improve his laryngeal cord swelling. Patient also has diabetes and his glucose are slightly higher secondary to steroids. His blood pressure is fairly well controlled. He has chronic stage III renal failure. His leukocytosis has resolved and is down to 9.2. He has been accepted to [facility] as he will be slow to wean from the vent. Dr. Francis will take over management of this patient over at [facility]. - Time spent with patient Time with patient DS: Greater than 30 minutes (45 min) Diagnosis - Discharge Diagnosis (1) Acute respiratory failure Status: Acute (2) Angioedema Status: Acute (3) Acute blood loss anemia Status: Acute (4) Leukocytosis Status: Acute (5) Chronic renal failure, stage 3 (moderate) Status: Acute (6) Diabetes mellitus Status: Chronic (7) Hypertension Status: Chronic (8) Aspiration into airway Status: Acute Discharge Plan - Discharge Data Disposition: Disch/[facility] to [facility] Condition at Discharge: Stable Discharge Diet: other (glucerna 1.5 at 50 ml/hr with free water 30 ml per hours ) Activity: other (vent setting AC 14, TV 760 FO2 40%, peep 5 ) Hygiene: other (bed bath ) - Discharge Medications New Albuterol/Ipratropium Neb [Duoneb] 3 ml RESP TX RT Q4H Carvedilol [Coreg] 6.25 mg PO BID tablet Dextrose 50% [D50] 25 gm IV PRN PRN #0 vial PRN Reason: Hypoglycemia with IV access Glucagon 1 mg IM PRN PRN #0 vial PRN Reason: Hypoglycemia w/o IV access Insulin Glargine [Lantus] 20 unit SUBCUT DAILY unit Insulin Lispro [HumaLOG] See Protocol SUBCUT Q6HR unit Lactulose Liquid [Chronulac] 20 gm PO TID Lansoprazole Odt Tab [Prevacid Solutab] 30 mg PO BID tablet Mupirocin 2% Oint [Bactroban 2% Oint] 1 applic TOP BID applic Ondansetron Inj [Zofran Inj] 4 mg IV Q6H PRN #0 vial PRN Reason: Nausea/Vomiting hydrALAZINE INJ [Apresoline Inj] 10 mg IV Q6H PRN #0 vial PRN Reason: Blood Pressure-Increased methylPREDNISolone SOD SUC INJ [SoluMEDROL] 125 mg IV Q6H vial Famotidine Inj [Pepcid Inj] 20 mg IV Q12H vial Piperacillin/Tazobactam [Zosyn] 3,375 mg IV Q8H vial Continue Doxazosin Mesylate [Cardura] 8 mg PO PC SUPPER Atorvastatin [Lipitor] 40 mg PO BEDTIME Benztropine Tab [Cogentin Tab] 1 mg PO BID Cholecalciferol (Vitamin D3) [Vitamin D3] 2,000 unit PO DAILY Multivitamin [Multivitamins] 1 each PO DAILY Polyethylene Glycol 3350 17 gm PO DAILY Docusate Sodium [Colace] 100 mg PO BID Discontinued Insulin Detemir [Levemir] 36 unit SUBCUT 1700 Sitagliptin Phosphate [Januvia] 100 mg PO DAILY Ferrous Sulfate Tab [Feosol Original Tab] 325 mg PO TID tablet Metoprolol Succinate Xl [Toprol Xl] 12.5 mg PO BID tablet Allopurinol 100 mg PO DAILY Hydrocodone/Acetaminophen [Hydrocodon-Acetaminophen 5-325] 1 each PO BID Cilostazol 25 mg PO BID clonazePAM [Clonazepam] 0.5 mg PO BEDTIME Gabapentin Cap/Tab [Neurontin Cap/Tab] 300 mg PO TID hydroCHLOROthiazide [Hydrochlorothiazide] 25 mg PO DAILY Trazodone HCl 50 mg PO BEDTIME Acetaminophen Tab [Tylenol Tab] 650 mg PO Q8H PRN PRN Reason: Fever, Headache, Mild Pain Megestrol Acetate [Megace] 400 mg PO DAILY Lactulose 10 gm PO DAILY Glimepiride [Amaryl] 1 mg PO DAILY Aspirin EC Tab 81 mg PO DAILY Ziprasidone HCl [Geodon] 80 mg PO BID - Follow Up or Referral - Forms/Instructions Exam - Constitutional Vitals: Period Temp Pulse Resp BP Sys/Loo Pulse Ox Last 24 Hr 97.1 F-98.8 F 63-78 12-24 136-174/66-86 97-100 General appearance: normal weight, no acute distress - Respiratory Respiratory exam: Present: clear to auscultation bilaterally. Absent: rhonchi, wheezes - Cardiovascular Cardiovascular exam: Present: regular rate and rhythm. Absent: systolic murmur - GI/Abdominal GI/Abdominal exam: Present: normal bowel sounds, soft. Absent: tenderness - Neurological Exam Neurological exam: Present: alert Discharge Results Procedures and tests throughout hospitalization: Pending Orders 07/20/16 07:41 Fungal Culture w/ Prep Stat 07/25/16 Bronchoalveolar Lavage C & GS Stat Fungal Culture w/ Prep Stat 07/26/16 04:00 XR chest 1V portable IN AM ABG [Arterial Blood Gas] IN AM 07/27/16 04:00 XR chest 1V portable IN AM ABG [Arterial Blood Gas] IN AM Magnesium Routine Phosphorous Routine Prealbumin Routine Labs on day of discharge: Labs from last 24 hours 07/25/16 07/25/16 07/25/16 11:47 05: 04:07 WBC RBC Hgb Hct MCV MCH MCHC RDW Plt Count MPV Neut % (Auto) Lymph % (Auto) [place] % (Auto) Eos % (Auto) Baso % (Auto) Neut # (Auto) Lymph # (Auto) [place] # (Auto) Eos # (Auto) Baso # (Auto) Immature Gran % Nucleated RBC % Immature Gran # Nucleated RBCs # INR 1.0 PT Patient/Control Mix 10.9 Circ Anticoag PTT 27.3 D ABG pH ABG pCO2 ABG pO2 ABG HCO3 ABG Total CO2 ABG O2 Saturation ABG Base Excess FiO2 Sodium Potassium Chloride Carbon Dioxide Anion Gap BUN Creatinine GFR Calculation BUN/Creatinine Ratio Glucose POC Glucose 196 H 186 H Calculated Osmolality Calcium Magnesium Legionella pneumophila Ab 07/25/16 07/25/16 07/25/16 04:07 04:07 03:15 WBC 9.2 RBC 3.82 Hgb 9.9 L Hct 30.3 L MCV 79.3 L MCH 26 L MCHC 32.7 RDW 17.0 Plt Count 180 MPV 12.0 Neut % (Auto) 73.5 Lymph % (Auto) 13.5 L [place] % (Auto) 11.7 Eos % (Auto) 0.0 Baso % (Auto) 0.1 Neut # (Auto) 6.7 Lymph # (Auto) 1.2 L [place] # (Auto) 1.1 H Eos # (Auto) 0.0 Baso # (Auto) 0.0 Immature Gran % 1.2 Nucleated RBC % 0.0 Immature Gran # 0.11 Nucleated RBCs # 0.00 INR PT Patient/Control Mix Circ Anticoag PTT ABG pH 7.491 H ABG pCO2 28.7 L ABG pO2 152.0 H ABG HCO3 24.0 ABG Total CO2 20.0 L ABG O2 Saturation 99.6 ABG Base Excess -0.6 FiO2 40.00 Sodium 142 Potassium 4.6 Chloride 110 H Carbon Dioxide 22 Anion Gap 14.6 BUN 49 H Creatinine 1.60 H GFR Calculation 66 BUN/Creatinine Ratio 30.00 H Glucose 200 H POC Glucose Calculated Osmolality 301.1 Calcium 8.4 L Magnesium 2.4 Legionella pneumophila Ab 07/24/16 07/24/16 07/19/16 23:42 17:36 11:41 WBC RBC Hgb Hct MCV MCH MCHC RDW Plt Count MPV Neut % (Auto) Lymph % (Auto) [place] % (Auto) Eos % (Auto) Baso % (Auto) Neut # (Auto) Lymph # (Auto) [place] # (Auto) Eos # (Auto) Baso # (Auto) Immature Gran % Nucleated RBC % Immature Gran # Nucleated RBCs # INR PT Patient/Control Mix Circ Anticoag PTT ABG pH ABG pCO2 ABG pO2 ABG HCO3 ABG Total CO2 ABG O2 Saturation ABG Base Excess FiO2 Sodium Potassium Chloride Carbon Dioxide Anion Gap BUN Creatinine GFR Calculation BUN/Creatinine Ratio Glucose POC Glucose 221 H 192 H Calculated Osmolality Calcium Magnesium Legionella pneumophila Ab Negative DS: Provider Date of admission: 07/19/16 06:18 Primary care physician: Wilfredo Gamboa MD Attending physician on admission: Nubia Stewart MD Consults: 07/19/16 08:53 Consult to Pharmacy [CONS] Routine Reason for Pharmacy Consult: Adjust Meds Renal Funct 07/19/16 09:02 Consult to Pharmacy [CONS] Routine Reason for Pharmacy Consult: Dose/Manage Vancomycin 07/19/16 09:56 Consult to Physician [CONS] Routine Comment: Consulting Provider: Roman Francis Consult to Specialist Group: Pulmonology When should Consulting Provider be notified: Now Person Notified: [email or web address] Date Notified: 07/19/16 Time Notified: 10:48 07/19/16 10:19 Consult to Pastoral Services [CONS] Routine Comment: Pastoral Screen: Request [employer] Visit Pastoral Screen Source of Request: Family 07/19/16 13:11 Consult to Anesthesiology [CONS] Routine Consulting Provider: Reason for Anesthesiology: Pre-op Clearance 07/19/16 14:01 Consult to Physician [CONS] Routine Comment: pre anesthesia, EKG changes, cardiac hx, gi bleed Consulting Provider: Cardiology - [facility] Person Notified: [facility] Date Notified: 07/19/16 Time Notified: 15:10 07/20/16 10:38 Consult to Dietitian [CONS] Routine Reason for Dietitian: TF-Initiate/Manage 07/23/16 12:23 Consult to Physician [CONS] Routine Comment: angioedema Consulting Provider: Felix Lee Consulting Provider Notified: Yes Person Notified: anny Date Notified: 07/23/16 Time Notified: 14:00 07/23/16 13:16 Consult to Dietitian [CONS] Routine Reason for Dietitian: TF-Initiate/Manage Consult Comment: please change to glucerna 07/24/16 14:46 Consult to Case Mgmt/Social Srvs [CONS] Routine Reason for Case Mgmt/Social Srvs: LTAC Consult Comment: [facility] 07/25/16 07:18 Consult to Physical Therapy [CONS] Routine Reason for Physical Therapy: Weakness Discharging clinician: Jacqueline Castellon MD
[2016-07-25] MEDS ORDERED: methylPREDNISolone SOD SUC 125 MG/2 ML VIAL IV SCH (12:00)
[2016-07-25] MEDS: MUPIROCIN 2% OINT 22 GM TUBE TOP SCH (12:38)
[2016-07-25] MEDS: FAMOTIDINE 20 MG/2 ML VIAL IV SCH ×2 (12:39)
[2016-07-25 15:07] VITALS: BP 160/77
== END 2016-07-25 16:15 | DRG 853 ==
LOC: EDBD → EDUNIT# → N.ED 05:24 → N.EDINP 06:18 → SUATTDRO 06:18 → N.CC 08:47
PROVIDERS: ADMIT Internal Medicine; ATTEND Internal Medicine

== ENCOUNTER 2017-08-15 05:54 | Inpatient (IN) ==
[2017-08-15] MEDS ORDERED: PANTOPRAZOLE 40 MG VIAL IV STA (06:32)
[2017-08-15] MEDS ORDERED: ONDANSETRON 4 MG/2 ML VIAL IV STA (06:32)
[2017-08-15 07:04] LABS: Basophils % 0.3 % (0.0-0.8); Eosinophils # 0.1 10*3/uL (0.0-0.87); Eosinophils % 1.4 % (0.00-10.9); Immature Granulocytes % 0.5 %; Immature Granulocytes Absolute 0.05 #; Lymphocytes % 19.2 % (21.2-54.2); Mean Corpuscular HGB Conc 27.3 GM/DL (32-36); Mean Corpuscular Hemoglobin 18 PG (27-34); Mean Corpuscular Volume 65.7 FL (87-102); Mean Platelet Volume 11.7 FL (9.6-12.0); Monocytes # 0.7 10*3/uL (0.11-0.8); Monocytes % 6.8 % (1.7-12.7); Neutrophils # 7.4 10*3/uL (1.4-7.4); Neutrophils % 71.8 % (38.7-73.9); Platelet Count 349 T/CUMM (130-400); Red Blood Count 2.45 MC/CUMM (3.8-5.5); Red Cell Distribution Width 17.5 % (9.3-17.3); White Blood Count 10.2 T/CUMM (4-12)
[2017-08-15 07:23] LABS: Alanine Aminotransferase 14 U/L (16-61); Alkaline Phosphatase 84 U/L (45-117); Aspartate Amino Transferase 11 U/L (0-37); Bilirubin,Total < 0.39 MG/DL (0.2-1.0); Blood Urea Nitrogen 24 MG/DL (7-18); Calcium 8.6 MG/DL (8.5-10.1); Glucose 96 MG/DL (74-106); Osmolality,Calculated 289.8 MOS/KG (273-304); Potassium 3.7 MMOL/L (3.5-5.1); Sodium 144 MMOL/L (136-145)
[2017-08-15 07:54] LABS: Hemoglobin 4.4 GM/DL (14.0-18.0)
[2017-08-15 07:55] LABS: Hematocrit 16.1 VOL% (42.0-52.0)
[2017-08-15] MEDS ORDERED: SODIUM CHLORIDE 0.9% 1,000 ML IV PRN ×2 (07:56→08:59)
[2017-08-15 07:59] LABS: INR 1.1; PT Patient Result 11.5 SECS; Partial Thromboplastin Time 28.9 SECS (0-40)
[2017-08-15 08:15] LABS: Hypochromasia 1+; Platelet Estimate Adequate
[2017-08-15 08:16] LABS: Ovalocytes Slight
[2017-08-15] MEDS ORDERED: ONDANSETRON 4 MG/2 ML VIAL IV PRN (08:48)
[2017-08-15] MEDS ORDERED: ACETAMINOPHEN 325 MG TABLET PO PRN ×2 (08:48→08:55)
[2017-08-15] MEDS ORDERED: GLUCAGON 1 MG VIAL IM PRN (08:48)
[2017-08-15] MEDS ORDERED: DEXTROSE 50% 25 GM/50 ML VIAL IV PRN (08:48)
[2017-08-15] MEDS ORDERED: MENTHOL TOP PRN (08:55)
[2017-08-15] MEDS ORDERED: ASPIRIN EC 81 MG TABLET PO SCH (09:00)
[2017-08-15] MEDS ORDERED: PANTOPRAZOLE 40 MG TABLET PO SCH (09:00)
[2017-08-15] MEDS ORDERED: cloNIDine 0.1 MG/24 HR PATCH TRANSDERM SCH (11:00)
[2017-08-15] MEDS: INSULIN GLARGINE 100 UNIT/ML SUBCUT SCH (11:07)
[2017-08-15] MEDS: metFORMIN 500 MG TABLET PO SCH ×2 (11:08→21:20)
[2017-08-15] MEDS: INSULIN REGULAR 100 UNIT/ML SUBCUT SCH ×3 (11:56→21:52)
[2017-08-15] MEDS: BENZTROPINE 1 MG TABLET PO SCH ×2 (12:09→21:20)
[2017-08-15] MEDS: TERAZOSIN 10 MG CAPSULE PO SCH ×2 (12:09→16:48)
[2017-08-15] MEDS: OLANZapine 5 MG TABLET PO SCH ×2 (12:09→21:20)
[2017-08-15] MEDS: MULTIVITAMIN (CENTRUM) TABLET PO SCH (12:09)
[2017-08-15] MEDS: CARVEDILOL 6.25 MG TABLET PO SCH ×2 (12:09→21:20)
[2017-08-15] MEDS ORDERED: FUROSEMIDE 40 MG/4 ML VIAL IV ONE (14:02)
[2017-08-15] MEDS ORDERED: BISACODYL 5 MG TABLET PO ONE (14:25)
[2017-08-15] MEDS: CHOLECALCIFEROL 1,000 UNIT TABLET PO SCH (16:48)
[2017-08-15 19:58] LABS: Hematocrit 22.5 VOL% (42.0-52.0)
[2017-08-15] MEDS: ATORVASTATIN 40 MG TABLET PO SCH (21:20)
[2017-08-15] MEDS: PANTOPRAZOLE 40 MG VIAL IV SCH (21:21)
[2017-08-16] MEDS: hydrALAZINE 20 MG/1 ML VIAL IV PRN (01:16)
[2017-08-16 01:52] LABS: Apearance,Urine CLEAR (Clear); Bacteria,Urine Occasional /HPF (Few); Bilirubin,Urine Negative (Negative); Blood, Urine Negative (Negative); Glucose,Urine (UA) Negative (Negative); Ketones,Urine Negative (Negative); Nitrite,Urine Negative (Negative); Protein,Urine Negative; RBC,Urine <1 /HPF (0-4); Squamous Epithelial Cell,Urine Occasional /HPF (0-10); Urine Color Yellow (Yellow); Urine Specific Gravity 1.005 (1.001-1.035); Urine Urobilinogen < 2.0 EU/DL (0.2-1.0); WBC,Urine 4 /HPF (0-6)
[2017-08-16] MEDS: INSULIN REGULAR 100 UNIT/ML SUBCUT SCH ×4 (07:57→21:36)
[2017-08-16 08:10] LABS: Basophils # 0.1 10*3/uL (0.0-0.2); Basophils % 0.6 % (0.0-0.8); Eosinophils # 0.4 10*3/uL (0.0-0.87); Eosinophils % 4.4 % (0.00-10.9); Hematocrit 29.1 VOL% (42.0-52.0); Hematocrit 29.5 VOL% (42.0-52.0); Hemoglobin 9.6 GM/DL (14.0-18.0); Hemoglobin 9.7 GM/DL (14.0-18.0); Immature Granulocytes % 0.3 %; Immature Granulocytes Absolute 0.03 #; Lymphocytes # 1.8 10*3/uL (1.4-4.0); Lymphocytes % 19.3 % (21.2-54.2); Mean Corpuscular HGB Conc 33.3 GM/DL (32-36); Mean Corpuscular Hemoglobin 24 PG (27-34); Mean Corpuscular Volume 72.2 FL (87-102); Mean Platelet Volume 11.8 FL (9.6-12.0); Monocytes # 0.9 10*3/uL (0.11-0.8); Monocytes % 9.5 % (1.7-12.7); Neutrophils # 6.2 10*3/uL (1.4-7.4); Neutrophils % 65.9 % (38.7-73.9); Platelet Count 312 T/CUMM (130-400); Red Blood Count 4.03 MC/CUMM (3.8-5.5); White Blood Count 9.5 T/CUMM (4-12)
[2017-08-16 08:32] LABS: Potassium 3.5 MMOL/L (3.5-5.1)
[2017-08-16] MEDS: metFORMIN 500 MG TABLET PO SCH ×2 (10:31→21:33)
[2017-08-16] MEDS: INSULIN GLARGINE 100 UNIT/ML SUBCUT SCH (10:31)
[2017-08-16] MEDS: BENZTROPINE 1 MG TABLET PO SCH ×2 (11:00→21:33)
[2017-08-16] MEDS: TERAZOSIN 10 MG CAPSULE PO SCH ×2 (13:09→17:44)
[2017-08-16] MEDS: CARVEDILOL 6.25 MG TABLET PO SCH ×2 (13:09→21:33)
[2017-08-16] MEDS: OLANZapine 5 MG TABLET PO SCH ×2 (13:09→21:33)
[2017-08-16] MEDS: MULTIVITAMIN (CENTRUM) TABLET PO SCH (13:10)
[2017-08-16] MEDS: PANTOPRAZOLE 40 MG VIAL IV SCH (13:10)
[2017-08-16] MEDS: CHOLECALCIFEROL 1,000 UNIT TABLET PO SCH (17:44)
[2017-08-16] MEDS: ERYTHROMYCIN BASE 250 MG TABLET PO SCH (17:44)
[2017-08-16 20:56] LABS: Hematocrit 27.5 VOL% (42.0-52.0)
[2017-08-16] MEDS: ATORVASTATIN 40 MG TABLET PO SCH (21:32)
[2017-08-16] MEDS: PANTOPRAZOLE 40 MG TABLET PO SCH (21:33)
[2017-08-17] MEDS: hydrALAZINE 20 MG/1 ML VIAL IV PRN (05:02)
[2017-08-17 05:56] LABS: Basophils # 0.1 10*3/uL (0.0-0.2); Basophils % 0.6 % (0.0-0.8); Eosinophils # 0.4 10*3/uL (0.0-0.87); Eosinophils % 3.4 % (0.00-10.9); Hematocrit 28.4 VOL% (42.0-52.0); Hemoglobin 9.3 GM/DL (14.0-18.0); Immature Granulocytes % 0.4 %; Immature Granulocytes Absolute 0.04 #; Lymphocytes # 2.1 10*3/uL (1.4-4.0); Lymphocytes % 19.4 % (21.2-54.2); Mean Corpuscular HGB Conc 32.7 GM/DL (32-36); Mean Corpuscular Hemoglobin 24 PG (27-34); Mean Corpuscular Volume 72.6 FL (87-102); Mean Platelet Volume 10.4 FL (9.6-12.0); Monocytes # 1.1 10*3/uL (0.11-0.8); Monocytes % 10.3 % (1.7-12.7); NRBC # 0.03 10*3/uL; Neutrophils # 7.1 10*3/uL (1.4-7.4); Neutrophils % 65.9 % (38.7-73.9); Platelet Count 277 T/CUMM (130-400); Red Blood Count 3.91 MC/CUMM (3.8-5.5); Red Cell Distribution Width 22.5 % (9.3-17.3); White Blood Count 10.7 T/CUMM (4-12)
[2017-08-17 06:26] LABS: Acanthocytes 1+; Elliptocytes 1+; Hypochromasia 2+; Macrocytosis 1+; Microcytosis 2+; Polychromasia Slight; Spherocytes Few
[2017-08-17] MEDS: PANTOPRAZOLE 40 MG TABLET PO SCH (06:41)
[2017-08-17 08:48] LABS: Hematocrit 27.8 VOL% (42.0-52.0); Hemoglobin 9.1 GM/DL (14.0-18.0)
[2017-08-17] MEDS: ERYTHROMYCIN BASE 250 MG TABLET PO SCH ×2 (09:08→11:55)
[2017-08-17] MEDS: MULTIVITAMIN (CENTRUM) TABLET PO SCH (09:08)
[2017-08-17] MEDS: metFORMIN 500 MG TABLET PO SCH (09:09)
[2017-08-17] MEDS: INSULIN REGULAR 100 UNIT/ML SUBCUT SCH (09:09)
[2017-08-17] MEDS: CARVEDILOL 6.25 MG TABLET PO SCH (09:09)
[2017-08-17] MEDS: BENZTROPINE 1 MG TABLET PO SCH (09:09)
[2017-08-17] MEDS: OLANZapine 5 MG TABLET PO SCH (09:12)
[2017-08-17] MEDS: INSULIN GLARGINE 100 UNIT/ML SUBCUT SCH (09:14)
[2017-08-17] MEDS: TERAZOSIN 10 MG CAPSULE PO SCH (11:55)
[2017-08-17 12:09] VITALS: BP 133/70
== END 2017-08-17 12:38 | DRG 378 ==
LOC: EDBD → EDUNIT# → N.ED 05:54 → N.EDINP 08:49 → SUATTDRO 08:49 → N.TELES 10:08
PROVIDERS: ADMIT Family Medicine

== ENCOUNTER 2017-11-09 02:24 | Inpatient (IN) ==
[2017-11-09 02:57] LABS: Basophils % 0.3 % (0.0-0.8); Eosinophils # 0.2 10*3/uL (0.0-0.87); Eosinophils % 1.7 % (0.00-10.9); Hematocrit 28.2 VOL% (42.0-52.0); Hemoglobin 8.3 GM/DL (14.0-18.0); Immature Granulocytes % 0.3 %; Immature Granulocytes Absolute 0.03 #; Lymphocytes # 1.7 10*3/uL (1.4-4.0); Lymphocytes % 18.5 % (21.2-54.2); Mean Corpuscular HGB Conc 29.4 GM/DL (32-36); Mean Corpuscular Hemoglobin 22 PG (27-34); Mean Corpuscular Volume 74.6 FL (87-102); Mean Platelet Volume 10.4 FL (9.6-12.0); Monocytes # 0.8 10*3/uL (0.11-0.8); Monocytes % 8.2 % (1.7-12.7); Neutrophils # 6.5 10*3/uL (1.4-7.4); Platelet Count 265 T/CUMM (130-400); Red Blood Count 3.78 MC/CUMM (3.8-5.5); Red Cell Distribution Width 21.3 % (9.3-17.3); White Blood Count 9.2 T/CUMM (4-12)
[2017-11-09 03:09] LABS: INR 1.1; PT Patient Result 11.7 SECS; Partial Thromboplastin Time 31.3 SECS (0-40)
[2017-11-09 03:13] LABS: Alanine Aminotransferase 19 U/L (16-61); Alkaline Phosphatase 95 U/L (45-117); Aspartate Amino Transferase 14 U/L (0-37); Bilirubin,Total < 0.39 MG/DL (0.2-1.0); Blood Urea Nitrogen 22 MG/DL (7-18); Calcium 8.7 MG/DL (8.5-10.1); Glucose 137 MG/DL (74-106); Osmolality,Calculated 290.8 MOS/KG (273-304); Potassium 3.7 MMOL/L (3.5-5.1); Sodium 144 MMOL/L (136-145); Total Protein 7.3 G/DL (6.4-8.3)
[2017-11-09 05:57] LABS: Folate 5.7 NG/ML (5.4-24.0)
[2017-11-09 06:05] LABS: % Iron Saturation 8.7 % (18-50)
[2017-11-09 07:17] LABS: Lactic Acid 2.3 MMOL/L (0.4-2.0)
[2017-11-09 18:58] LABS: Apearance,Urine Slightly Hazy (Clear); Bacteria,Urine Moderate /HPF (Few); Bilirubin,Urine Negative (Negative); Blood, Urine Negative (Negative); Glucose,Urine (UA) Negative (Negative); Ketones,Urine Negative (Negative); Mucus,Urine Occasional /LPF (Occasional); Nitrite,Urine Negative (Negative); Protein,Urine 100 MG/DL; RBC,Urine <1 /HPF (0-4); Squamous Epithelial Cell,Urine Occasional /HPF (0-10); Urine Color Yellow (Yellow); Urine Specific Gravity 1.015 (1.001-1.035); Urine Urobilinogen < 2.0 EU/DL (0.2-1.0); WBC,Urine 12 /HPF (0-6)
[2017-11-10 04:54] LABS: Basophils % 0.4 % (0.0-0.8); Eosinophils # 0.3 10*3/uL (0.0-0.87); Eosinophils % 3.9 % (0.00-10.9); Hematocrit 26.6 VOL% (42.0-52.0); Immature Granulocytes % 0.4 %; Immature Granulocytes Absolute 0.03 #; Lymphocytes # 2.2 10*3/uL (1.4-4.0); Lymphocytes % 28.8 % (21.2-54.2); Mean Corpuscular HGB Conc 30.1 GM/DL (32-36); Mean Corpuscular Hemoglobin 23 PG (27-34); Mean Corpuscular Volume 76.2 FL (87-102); Mean Platelet Volume 10.9 FL (9.6-12.0); Monocytes # 0.6 10*3/uL (0.11-0.8); Monocytes % 8.5 % (1.7-12.7); Neutrophils # 4.4 10*3/uL (1.4-7.4); Platelet Count 219 T/CUMM (130-400); Red Blood Count 3.49 MC/CUMM (3.8-5.5); Red Cell Distribution Width 21.4 % (9.3-17.3); White Blood Count 7.5 T/CUMM (4-12)
[2017-11-10 05:24] LABS: Calcium 8.3 MG/DL (8.5-10.1); Osmolality,Calculated 295.6 MOS/KG (273-304); Potassium 3.8 MMOL/L (3.5-5.1)
[2017-11-10 08:08] LABS: Anisocytosis 1+; Microcytosis 1+; Ovalocytes Few; Poikilocytosis 1+; Polychromasia Slight; Schistocytes 1+
[2017-11-10 08:09] LABS: Platelet Estimate Normal
[2017-11-11 08:36] LABS: Basophils % 0.4 % (0.0-0.8); Eosinophils # 0.2 10*3/uL (0.0-0.87); Eosinophils % 2.3 % (0.00-10.9); Hematocrit 30.9 VOL% (42.0-52.0); Immature Granulocytes % 0.7 %; Immature Granulocytes Absolute 0.07 #; Lymphocytes # 1.7 10*3/uL (1.4-4.0); Lymphocytes % 17.5 % (21.2-54.2); Mean Corpuscular HGB Conc 31.7 GM/DL (32-36); Mean Corpuscular Hemoglobin 24 PG (27-34); Mean Corpuscular Volume 75.9 FL (87-102); Mean Platelet Volume 10.6 FL (9.6-12.0); Monocytes # 0.7 10*3/uL (0.11-0.8); Monocytes % 7.5 % (1.7-12.7); Neutrophils # 7.1 10*3/uL (1.4-7.4); Neutrophils % 71.6 % (38.7-73.9); Platelet Count 250 T/CUMM (130-400); Red Blood Count 4.07 MC/CUMM (3.8-5.5); Red Cell Distribution Width 20.7 % (9.3-17.3)
[2017-11-11 08:46] LABS: White Blood Count 9.9 T/CUMM (4-12)
[2017-11-11 08:47] LABS: Hemoglobin 9.8 GM/DL (14.0-18.0)
[2017-11-11 08:59] LABS: Hypochromasia 1+; Microcytosis Slight; Ovalocytes Slight; Platelet Estimate Adequate
[2017-11-12 06:39] LABS: Basophils % 0.5 % (0.0-0.8); Eosinophils # 0.3 10*3/uL (0.0-0.87); Eosinophils % 2.9 % (0.00-10.9); Hematocrit 30.4 VOL% (42.0-52.0); Hemoglobin 9.3 GM/DL (14.0-18.0); Immature Granulocytes % 0.6 %; Immature Granulocytes Absolute 0.05 #; Lymphocytes # 1.8 10*3/uL (1.4-4.0); Lymphocytes % 20.7 % (21.2-54.2); Mean Corpuscular HGB Conc 30.6 GM/DL (32-36); Mean Corpuscular Hemoglobin 24 PG (27-34); Mean Corpuscular Volume 76.8 FL (87-102); Monocytes # 0.9 10*3/uL (0.11-0.8); Monocytes % 10.2 % (1.7-12.7); Neutrophils # 5.7 10*3/uL (1.4-7.4); Neutrophils % 65.1 % (38.7-73.9); Platelet Count 215 T/CUMM (130-400); Red Blood Count 3.96 MC/CUMM (3.8-5.5); Red Cell Distribution Width 21.5 % (9.3-17.3); White Blood Count 8.7 T/CUMM (4-12)
[2017-11-12 07:02] LABS: Hypochromasia 1+; Platelet Estimate Adequate
[2017-11-12 07:03] LABS: Microcytosis Slight; Ovalocytes Slight
[2017-11-12 11:33] VITALS: BP 195/99
== END 2017-11-12 16:30 | DRG 380 ==
LOC: EDUNIT# → EDBD → N.ED 02:24 → SUATTDRO 04:51 → N.EDINP 04:51 → N.3E 05:35
PROVIDERS: ADMIT Hospitalist; ATTEND Internal Medicine